=== PATIENT | female | born 1940 | race Two or more races ===

== ENCOUNTER 2024-07-24 14:21 | Inpatient (IN) | payer MEDICARE, MEDICAID, SELFPAY ==
[2024-07-24 14:22] VITALS: BMI 25.7
[2024-07-24 14:40] VITALS: BP 139/70; PULSE 68; RESP 18; TEMP 36.6; O2SAT 99
--- NOTE | 2024-07-24 14:55 | XR_ITS ---
Examination: Upright PA chest single view Technique: Upright PA chest single view Exam date and time: July 24, 2024 1506 hrs. Indications: Shortness of breath today. Findings: Mild to moderate CHF Moderate enlargement cardiac contour Prominent vascular congestion with perihilar edema Cardiac leads satisfactory position Impression: Mild/moderate CHF
--- NOTE | 2024-07-24 14:55 | XR_ITS ---
Examination: Venous duplex lower extremity sonogram, bilateral. Date and time of exam: July 24, 2024 1551 hrs. Comparison May 05, 2022 Indications: Bilateral leg swelling and pain beginning 3 weeks ago Technique: Multiple sonographic images of the deep venous system have been obtained. B-mode/2-D grayscale imaging of vascular structures and Doppler spectral analysis (waveforms) and color performed Both legs are examined. Findings: Deep venous systems do not demonstrate abnormal echogenicity. Very limited study with no diagnostic visualization right superficial femoral right popliteal veins and distal left superficial femoral left popliteal veins Impression: Limited study with no acute DVT demonstrated
--- NOTE | 2024-07-24 14:57 | PD.EDRME ---
Rapid Medical Screening Exam RME Arrival date/time: 07/24/24 14:21 84-year-old female presents to the emergency department today with complaints of bilateral lower extremity swelling Chief Complaint: Extremity Problem,Nontraumatic Vital signs: Vital Signs Temperature 97.8 F 07/24/24 14:40 Pulse Rate 68 07/24/24 14:40 Respiratory Rate 18 07/24/24 14:40 Blood Pressure 139/70 H 07/24/24 14:40 Pulse Oximetry (%) 99 07/24/24 14:40 Oxygen Delivery Method Room Air 07/24/24 14:40
[2024-07-24 15:22] LABS: Basophils % (Auto) 1 % (0-2.5); Eosinophils # (Auto) 0.1 Thou/mm3 (0.0-0.5); Eosinophils % (Auto) 3 % (0-10); Hematocrit 31.6 % (36.0-46.0); Hemoglobin 10.9 g/dL (12.0-16.0); Immature Granulocytes % (Auto) 1 % (0-0); Immature Granulocytes Auto 0.02 Thou/mm3 (0.00-0.00); Lymphocytes # (Auto) 0.6 Thou/mm3 (1.0-4.8); Lymphocytes % (Auto) 15 % (10-50); Mean Corpuscular HGB Conc 34.5 g/dl (31.0-37.0); Mean Corpuscular Hemoglobin 33.5 pg (25.0-35.0); Mean Corpuscular Volume 97 fL (80-100); Monocytes # (Auto) 0.5 Thou/mm3 (0.0-0.8); Monocytes % (Auto) 14 % (0-12); Neutrophils # (Auto) 2.6 Thou/mm3 (1.8-7.7); Neutrophils % (Auto) 67 % (37-80); Nucleated Red Blood Cell % 0 /100 WBC (0); Platelet Count 103 Thou/mm3 (140-440); RDW Standard Deviation 52.5 fL (36.4-46.3); Red Blood Count 3.25 Miln/mm3 (4.00-5.20); White Blood Count 3.9 Thou/mm3 (3.6-11.0)
[2024-07-24 15:36] LABS: INR 1.2 (0.9-1.3); Partial Thromboplastin Time 27.6 Seconds (22.0-36.0); Prothrombin Time 12.7 Seconds (9.0-12.2)
[2024-07-24 15:38] LABS: B-Type Natriuretic Peptide 270 pg/mL (0-100)
[2024-07-24 15:40] LABS: Alanine Aminotransferase 11 U/L (10-49); Albumin, Serum 4.2 gm/dL (3.4-4.8); Albumin/Globulin Ratio 1.1 (1.2-2.2); Alkaline Phosphatase 253 U/L (46-116); Anion Gap 10 (7-16); Aspartate Amino Transferase 19 U/L (0-34); BUN/Creatinine Ratio 38 Ratio (12-20); Bilirubin,Total 2.8 mg/dL (0.3-1.2); Blood Urea Nitrogen 79 mg/dL (9-23); Calcium 9.3 mg/dL (8.3-10.6); Calcium (Corrected) 9.3 mg/dL (8.5-10.1); Carbon Dioxide 25.1 mMol/L (20.0-31.0); Chloride 101 mMol/L (98-107); Creatinine (Component) 2.1 mg/dL (0.6-1.3); Estimated Creatinine Clearance 18.5 mL/min (>60); Globulin 3.7 gm/dL (2.3-3.5); Glucose 129 mg/dL (74-106); Lipase 63 U/L (12-53); Magnesium 2.1 mg/dL (1.6-2.6); Osmolality,Calculated 297 (275-295); Potassium 3.9 mMol/L (3.4-5.1); Sodium 136 mMol/L (136-145); Total Protein 7.9 gm/dL (5.7-8.2); Troponin I 0.022 ng/mL (0.0-0.045); eGFR 23 See Note
[2024-07-24 17:13] VITALS: BP 137/80; PULSE 76; RESP 18; TEMP 36.4; O2SAT 96
[2024-07-24 17:19] LABS: Collection Type, Urine Clean Catch
[2024-07-24 17:24] LABS: Bilirubin,Urine Negative (Negative); Blood,Urine Negative (Negative); Clarity,Urine Clear (Clear/Hazy); Color,Urine Lt-Yellow (Lt Yel-Yel); Glucose, Urine Negative (Negative); Hyaline Casts,Urine < 1 /hpf (0-1); Ketones,Urine Negative (Negative); Leukocyte Esterase,Urine Negative (Negative); Nitrite,Urine Negative (Negative); Protein,Urine Trace (Neg - Trace); RBC,Urine 1 /hpf (0-3); Specific Gravity,Urine 1.011 (1.001-1.035); Squamous Epithelial Cell,Urine < 1 /hpf (0-5); Urobilinogen,Urine Negative mg/dL (0.0-1.0); WBC,Urine 1 /hpf (0-5)
--- NOTE | 2024-07-24 18:25 | PD.EDEXREM ---
ED Extremity Problem RME/HPI General Chief complaint: Extremity Problem,Nontraumatic Stated complaint: BLE EDEMA X3 WEEKS Time Seen by Provider: 07/24/24 18:24 Arrival date/time: 07/24/24 14:21 RME / HPI RME / HPI Narrative: 07/24/24 14:21 84-year-old female presents to the emergency department today with complaints of bilateral lower extremity swelling This section includes all my notes and documentations, including HPI, PE, and ED course. Denton Lewis MD HPI: 84-year-old female here to be evaluated with several weeks of severe edema in the legs. Can't stand or walk due to the swelling. She and daughter also think there is fluid in the belly. Increasing dyspnea and orthopnea. No chest pain. No fever or chills. No nausea or vomiting. No history of alcohol use. No known liver disease. No other complaints. ROS: All negative except as documented in HPI. Physical Exam: General: Alert and oriented. Appears uncomfortable. Eyes: Conjunctivae and lids clear. ENT: No nasal congestion. Neck: Supple. Heart: RRR. Lungs: No respiratory distress. Good air movement with rales. Abdomen: Soft. Normal bowel sounds. Significant distension. No rebound or guarding. Back: No CVA tenderness. Skin: Warm and dry. Neuro: Alert and oriented X 3. I reviewed all diagnostic test results. Diagnoses include: Decompensated cirrhosis Ascites Anasarca bilateral leg edema CHF I discussed the case with our signal tester and our hospitalist. About the presentation and exam and diagnostics and treatments here. And need of further care in the hospital. Will accept the patient. Denton Lewis MD Related Data Home Medications ?Medication ?Instructions ?Recorded ?Confirmed lovastatin 20 mg tablet 20 mg PO HS 06/21/17 04/30/22 pantoprazole 40 mg tablet,delayed 40 mg PO QDAY 06/21/17 04/30/22 release fluticasone propionate 50 1 spray intranasal QDAY 04/30/22 04/30/22 mcg/actuation nasal spray,suspension sitagliptin phosphate 50 mg tablet 50 mg PO QDAY 04/30/22 04/30/22 (Januvia) Previous Rx's ?Medication ?Instructions ?Recorded metformin 500 mg tablet 500 mg PO BID #60 tabs 12/18/18 azithromycin 250 mg tablet See Rx Instructions PO .COMPLEX #6 08/07/22 (Zithromax Z-Vamshi) tabs Allergies Allergy/AdvReac Type Severity Reaction Status Date / Time aspirin Allergy Severe SWELLING Verified 07/24/24 14:26 TO LIPS chlorpheniramine Allergy Severe UNKNOWN Verified 07/24/24 14:26 PER PT diphenhydramine Allergy Severe SWELLING Verified 07/24/24 14:26 TO LIPS guaifenesin Allergy Severe UNKNOWN Verified 07/24/24 14:26 phenylpropanolamine Allergy Severe SWELLING Verified 07/24/24 14:26 TO LIPS Salicylates Allergy Severe SWELLING Verified 07/24/24 14:26 TO LIPS Course Quality Measures none Orders Category Date Time Status COVID-19 Screening Questionnaire NOW Care 07/24/24 20:36 Active Decision to Admit X1 Care 07/24/24 20:36 Completed EKG (ED ONLY) *Do not use* NOW Care 07/24/24 20:51 Completed IV [Insert IV] NOW Care 07/24/24 21:07 Active Consult to Gastroenterology Stat Cons 07/24/24 20:35 Ordered Diet Low Sodium (2gm) Diet 07/25/[address] chest abdomen pelvis wo Stat Exams 07/24/24 18:44 Completed EKG (ED Only) Stat Exams 07/24/24 20:51 Draft US venous doppler LE BI Stat Exams 07/24/24 14:55 Completed XR chest 1V portable Stat Exams 07/24/24 14:55 Completed B-Type Natriuretic Peptide Stat Lab 07/24/24 15:13 Completed CBC Stat Lab 07/24/24 15:13 Completed Comprehensive Metabolic Panel Stat Lab 07/24/24 15:13 Completed Lipase Stat Lab 07/24/24 15:13 Completed Magnesium Stat Lab 07/24/24 15:13 Completed Partial Thromboplastin Time Stat Lab 07/24/24 15:13 Completed Prothrombin Time with INR Stat Lab 07/24/24 15:13 Completed Troponin I Stat Lab 07/24/24 15:13 Completed Urinalysis Stat Lab 07/24/24 17:08 Completed Bumetanide Inj [Bumex Inj] Med 07/24/24 20:38 Discontinued 1 mg IVP X1 ONE Container,Empty 50 ml [Empty Container Bag 50 ml] 1 bag Med 07/24/24 20:38 Active Bumetanide Inj [Bumex Inj] 10 mg IV 0.5 mg/hr Vital Signs Vital signs: Vital Signs Temperature 97.8 F 07/24/24 14:40 Pulse Rate 68 07/24/24 14:40 Respiratory Rate 18 07/24/24 14:40 Blood Pressure 139/70 H 07/24/24 14:40 Pulse Oximetry (%) 99 07/24/24 14:40 Oxygen Delivery Method Room Air 07/24/24 14:40 Extremity Problem Patient data External records reviewed:: [facility] previous records Clinical information provided by:: patient and family Social determinants that could affect healthcare access:: other (specify) (Advanced age) Patient has the following chronic illnesses:: DM How is presenting disease/condition affected by chronic disease/condition?: uneffected by Evaluation data The following diagnostics were reviewed and interpreted by me:: lab results, radiology exam(s) and EKG tracing(s) Lab and/or radiology exams considered but not ordered:: None Interpretation Summary: Diagnoses include: Decompensated cirrhosis Ascites Anasarca bilateral leg edema CHF Medications / Prescriptions Medications or Prescriptions considered but not ordered:: None Medication administrations:: Medication Administration History Acetaminophen (Acetaminophen 325 Mg Tablet) 650 mg PO Q6H PRN PRN Reason: Fever >101.5 Stop: 08/23/24 21:42 Acetaminophen (Acetaminophen 325 Mg Tablet) 650 mg PO Q6H PRN PRN Reason: PAIN SCALE 1-3 (mild Stop: 08/23/24 21:42 Atorvastatin Calcium (Atorvastatin Calcium 20 Mg Tablet) 40 mg PO HS SANJEEV Stop: 08/24/24 20:59 Carvedilol (Carvedilol 3.125 Mg Tablet) 6.25 mg PO BID SANJEEV Stop: 08/24/24 08:59 Dextrose (Dextrose 50%-Water Inj 50 Ml Syringe) 25 ml IV Q15MIN PRN PRN Reason: BG 50-70 responsive npo pt Stop: 08/23/24 21:52 Dextrose (Dextrose 50%-Water Inj 50 Ml Syringe) 50 ml IV Q15MIN PRN PRN Reason: BG <50 OR BG <70 & pt unresponsive Stop: 08/23/24 21:52 Glucagon (Glucagon Inj 1 Mg Vial) 1 mg IM Q15MIN PRN PRN Reason: BG <70, and no IV access Heparin Sodium (Porcine) (Heparin Sod Inj 5000 Unit/Ml Vial) 5,000 unit SC Q8HR SANJEEV Stop: 08/07/24 21:59 Last Admin: 07/24/24 23:18 Dose: 5,000 unit Documented By: CB Co-signed By: CVL Admin: 07/24/24 23:18 Dose: 5,000 unit Documented By: TAMMY Co-signed By: CVL Bumetanide 10 mg/ IV (Miscellaneous Supplies) 40 mls @ 2 mls/hr IV .Q20H SANJEEV Stop: 07/25/24 16:37 Last Admin: 07/24/24 21:04 Dose: 0.5 mg/hr, 2 mls/hr Documented By: JOSE Insulin Human Lispro (Insulin Lispro (Admelog) 1 Unit/0.01 Ml Unit) 0 unit SC AC SANJEEV; Protocol Stop: 08/24/24 07:29 Ondansetron HCl (Ondansetron Inj 2 Mg/Ml Inj 2 Ml) 4 mg IV Q6H PRN; Protocol PRN Reason: NAUSEA OR VOMITING Stop: 08/23/24 21:42 Spironolactone (Spironolactone 25 Mg Tablet) 25 mg PO HS SANJEEV Stop: 08/23/24 21:49 Discontinued Medications Bumetanide (Bumetanide Inj 0.25 Mg/Ml Vial 4 Ml) 1 mg IVP X1 ONE Stop: 07/24/24 20:39 Last Admin: 07/24/24 21:05 Dose: 1 mg Documented By: JOSE From nd, patient received Bumex bolus and drip. Consultations Consultation(s) initiated? (list below): Yes Consultation #1 (Physician, Specialty, Details): I discussed the case with our signal tester and our hospitalist. About the presentation and exam and diagnostics and treatments here. And need of further care in the hospital. Will accept the patient. Diagnosis Extremity Problem Differential Diagnosis: lower extremity edema, deep vein thrombosis of lower extremity and other (CHF, cirrhosis, ascites, hepatorenal syndrome) Most likely diagnosis given after review of the tests above:: Diagnoses include: Decompensated cirrhosis Ascites Anasarca bilateral leg edema CHF Admission Indicated Admission indicated?: indicated Explain why admission is indicated or not indicated:: Diagnoses include: Decompensated cirrhosis Ascites Anasarca bilateral leg edema CHF I discussed the case with our signal tester and our hospitalist. About the presentation and exam and diagnostics and treatments here. And need of further care in the hospital. Will accept the patient. Admission Request Was there a request for admission?: Yes Admission Attestation Admission request attestation: Discussed case with Hospitalist service regarding admission. Discussed patients ED course, exam findings, labs, and radiology results. The Hospitalist [agrees] to accept the patient for admission. Disposition Plan Disposition Plan: Admit Discharge Plan Plan Patient Disposition: Admit Acute Care w/in Hospital Problem List Clinical Impression: Decompensated cirrhosis, Ascites, Anasarca, Bilateral leg edema, CHF (congestive heart failure)
--- NOTE | 2024-07-24 18:44 | XR_ITS ---
Examination: CT chest, without intravenous contrast. CT abdomen, without intravenous contrast. CT pelvis, without intravenous contrast. 2-D sagittal and coronal reconstructions. 3-D reconstructions. Date and time of exam:July 24, 2024 at 1906 hrs. Indications: Chest pain shortness of breath today, clinical diagnosis CHF abdominal distention CTDI vol (mgy) 9.74 DLP (MGycm)673 Technique: Multiple CT images, 3.0 mm slice thickness, obtained chest, abdomen, pelvis, with the high-resolution 64 slice scanner.. Sagittal and coronal 2-D reconstructions are obtained. 3-D reconstructions Low dose protocols were performed. One or more of the following dose reduction techniques were used; automated exposure control, adjustment of the mA and/or KV according to patient size, use of iterative reconstruction technique. Findings: No thoracic aortic aneurysm dilatation Pulmonary artery segments are not enlarged Moderate cardiomegaly Significant vascular congestion with mild septal edema in the lung franklin and minimal pleural fluid 6 mm calcified nodule right lower lobe Cirrhosis, liver nodular in contour with fatty infiltration Cholelithiasis Gallbladder wall is thickened which may relate to the patient's ascites Spleen is not enlarged No pancreatic mass No renal or ureteral calculi Anasarca Aorta normal size IVC dilated consistent with heart failure No bowel obstruction Anteverted uterus Endometrial stripe is thickened 15 mm Prominent osteopenia Impression: Mild CHF Cirrhosis Cholelithiasis Mild to moderate ascites Anasarca No bowel obstruction
[2024-07-24 20:24] VITALS: BP 125/78; PULSE 71; RESP 19; TEMP 36.4; O2SAT 92
--- NOTE | 2024-07-24 20:51 | EKG_ITS ---
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
--- NOTE | 2024-07-24 20:52 | PD.EVENT ---
Documentation for date of: 07/24/24 Event Note Event Note: An 84-year-old female presented to the ER with the chief complaint of bilateral leg swelling. The patient reports that the swelling began approximately three weeks ago and has worsened significantly over the past week, with marked progression since Tuesday. She is now barely able to ambulate. She denies shortness of breath, fever, cough, or chest pain. No other acute complaints were reported. The patient has a history of HTN, DM, HLD, anemia, and has undergone pacemaker placement twice. Current medications include LovaStatin, Potassium Chloride, Carvedilol, Ferrous Sulfate, Metformin, Metolazone, Digoxin, Pantoprazole, Vitamin B12, and Furosemide. Social history is negative for smoking, alcohol, or drug use. She is functionally limited and requires assistance to ambulate with a walker. She was hospitalized about a year ago for biliary stones and was managed non-surgically with medications during admission. Last cardiac echo in 2022 showed an estimated EF of 50?55%. In the ER, vital signs recorded as temp 97.8?F, HR 68 bpm, RR 18, BP 139/70 mmHg, oxygen saturation 99% on room air. Lab revealed: sodium 136, potassium 3.9, BUN 79, creatinine 2.1, glucose 129, total bilirubin 2.8, BNP 270, AST 19, ALT 11, WBC 3.9, hemoglobin 10.9, platelet 103, INR 1.2. CT showed mild CHF, cirrhosis, cholelithiasis, mild to moderate ascites, anasarca, and a dilated IVC consistent with heart failure; no bowel obstruction. Lower extremity US showed no acute DVT. CXR demonstrated mild to moderate CHF. EKG showed pacemaker rhythm. GI was consulted for cirrhosis. Patient was admitted for further management. #Anasarca, from CHF or cirrhosis Assessment: Progressive bilateral leg swelling with anasarca; evidence of mild to moderate CHF (BNP 270, CXR/CT findings, dilated IVC), cirrhosis with ascites (CT), normal albumin (4.2) excludes hypoalbuminemia; renal dysfunction (Cr 2.1, BUN 79); FIB-4 score 4.62 suggests advanced fibrosis; coagulopathy and cytopenias (PLT 103, INR 1.2, WBC 3.9) likely liver-related; no DVT Plan: - Continue IV loop diuretics (optimize dosing) - Daily weights, strict I/O, monitor renal function and electrolytes - Sodium restriction, fluid restriction as tolerated - Leg elevation, compression if tolerated - GI consulted for cirrhosis evaluation - Order hepatitis panel and additional liver workup - Repeat echocardiogram to reassess EF - Avoid nephrotoxic medications - Further management contingent on updated EF and hepatology input #CKD Assessment: Chronic kidney disease, Cr 2.1 (baseline 1.5 two years ago), likely worsened with volume overload and diuretic use Plan: - Monitor renal function and electrolytes daily - Adjust diuretics based on response and renal status - Avoid nephrotoxins - Consider nephrology consult if worsening #DM Assessment: Type 2 diabetes mellitus, glucose 129 on admission, eGFR likely <30 Plan: - Hold metformin due to renal impairment - Initiate sliding scale insulin for inpatient glucose control - Monitor glucose trends and renal function closely #HTN Assessment: Hypertension, BP 139/70, on carvedilol and metolazone Plan: - Continue carvedilol; hold metolazone with ongoing diuresis and renal monitoring - Monitor BP closely, adjust as needed during diuresis - Avoid overdiuresis/hypotension #HLD Assessment: Hyperlipidemia, on lovastatin Plan: - Continue statin therapy - No acute issues; routine outpatient lipid panel follow-up
[2024-07-24] MEDS: BUMETANIDE INJ 10 MG in CONTAINER,EMPTY 50 ML 1 BAG 2 MG IV (21:04)
[2024-07-24] MEDS: BUMETANIDE INJ 0.25 MG/ML VIAL 4 ML 1 MG IVP (21:05)
--- NOTE | 2024-07-24 21:22 | PD.RESHP ---
Documentation for date of: 07/24/24 [facility] History of Present Illness History of present illness: The patient is an 84-year-old female with significant past medical history of hypertension, diabetes mellitus type 2, hyperlipidemia, anemia, hepatocellular disease, s/p pacemaker placement x 2 presented to ED on 07/24/2024 with chief complaint of bilateral lower limb edema that has been worsening for past 3 weeks. She was accompanied by her daughter, Sarahi. For past 2 days, she has not been able to ambulate, and her swelling gradually increased up to her buttock. She denied any headache, nausea or vomiting, chest pain, SOB, abdominal pain, any changes in bowel or bladder habit, fever or chills. In the ED her vitals were significant for blood pressure of 139/70 with other vitals WNL. Labs are significant for CBC revealing hemoglobin 10.9, platelet 103, and INR 1.2, sodium 136, potassium 3.9, BUN 79, creatinine 2.1, blood sugar 129, total bilirubin 2.8, BNP 270, AST/ALT 19/11. CT abdomen revealed mild CHF, cirrhosis, cholelithiasis, mild to moderate ascites, anasarca, and a dilated IVC consistent with heart failure, no bowel obstruction. Lower extremity US Doppler was negative for DVT, CXR revealed mild to moderate CHF, EKG revealed paced rhythm. PMH: As mentioned above SHX: 1 section, s/p pacemaker x 2 Social history: Never smoker, alcohol or any illicit drug use Medications: To be reconciled Allergies: Aspirin-swelling to lips, chlorpheniramine-unknown, diphenhydramine-swelling to lips, guaifenesin-unknown, phenylpropanolamine-swelling to lips, salicylates-swelling to lips The patient was started on Bumex drip in the ED, GI Dr. Le was consulted, and admitted to med telemetry unit for further management of anasarca secondary to liver cirrhosis. Review of Systems Review of Systems Systems Reviewed: All systems reviewed, normal except as documented Exam Vital Signs Temp Pulse Resp BP Pulse Ox O2 Del Method 97.5 F 71 19 125/78 92 L Room Air 07/24/24 20:24 07/24/24 20:24 07/24/24 20:24 07/24/24 20:24 07/24/24 20:24 07/24/24 20:24 Narrative Exam General: Elderly cooperative female, no acute distress, Alert and Oriented x 3 HEENT: Moist mucous membranes, oropharynx clear Neck: Supple, No masses, No JVD CVS: S1S2 Regular rate and rhythm, No murmurs, rubs or gallops Lungs: Clear to auscultation with no accessory use, no wheeze no rhonchi Abd: Soft, NT/mildly distended in all quadrants, +BS, no organomegaly Ext: 3-4+ bilateral lower limb edema extended up to abdomen, peripheral pulses: Feeble Skin: No rash Psych: Appropriate mood and affect Results: Labs 07/24/24 15:13 07/24/24 15:13 Labs: Short CBC 07/24/24 Range/Units 15:13 WBC 3.9 (3.6-11.0) Thou/mm3 Hgb 10.9 L (12.0-16.0) g/dL Hct 31.6 L (36.0-46.0) % Plt Count 103 L (140-440) Thou/mm3 BMP 07/24/24 15:13 Sodium 136 Potassium 3.9 Chloride 101 Carbon Dioxide 25.1 BUN 79 H Creatinine 2.1 H Glucose 129 H Calcium 9.3 Cardiac Enzymes 07/24/24 Range/Units 15:13 Troponin I 0.022 (0.0-0.045) ng/mL Liver Function 07/24/24 Range/Units 15:13 Total Bilirubin 2.8 H (0.3-1.2) mg/dL AST 19 (0-34) U/L ALT 11 (10-49) U/L Alkaline Phosphatase 253 H (46-116) U/L Albumin 4.2 (3.4-4.8) gm/dL Urine 07/24/24 Range/Units 17:08 Urine Color Lt-Yellow (Lt Yel-Yel) Urine Clarity Clear (Clear/Hazy) Urine pH 6.0 (5.0-7.0) Ur Specific [place] 1.011 (1.001-1.035) Urine Protein Trace (Neg - Trace) Urine Glucose (UA) Negative (Negative) Quality Measures Quality Measures VTE prophylaxis Advance care planning discussed with:: patient and child Medications Home Medications and Allergies Home Medications ?Medication ?Instructions ?Recorded ?Confirmed ?Type lovastatin 20 mg tablet 20 mg PO HS 06/21/17 04/30/22 History pantoprazole 40 mg tablet,delayed 40 mg PO QDAY 06/21/17 04/30/22 History release fluticasone propionate 50 1 spray intranasal QDAY 04/30/22 04/30/22 History mcg/actuation nasal spray,suspension sitagliptin phosphate 50 mg tablet 50 mg PO QDAY 04/30/22 04/30/22 History (Nilo) Allergies Allergy/AdvReac Type Severity Reaction Status Date / Time aspirin Allergy Severe SWELLING Verified 07/24/24 14:26 TO LIPS chlorpheniramine Allergy Severe UNKNOWN Verified 07/24/24 14:26 PER PT diphenhydramine Allergy Severe SWELLING Verified 07/24/24 14:26 TO LIPS guaifenesin Allergy Severe UNKNOWN Verified 07/24/24 14:26 phenylpropanolamine Allergy Severe SWELLING Verified 07/24/24 14:26 TO LIPS Salicylates Allergy Severe SWELLING Verified 07/24/24 14:26 TO LIPS Visit Medications Bumetanide 10 mg/ IV (Miscellaneous Supplies) 40 mls @ 2 mls/hr IV .Q20H SANJEEV Stop: 07/25/24 16:37 Last Admin: 07/24/24 21:04 Dose: 0.5 mg/hr, 2 mls/hr Discontinued Medications Bumetanide (Bumetanide Inj 0.25 Mg/Ml Vial 4 Ml) 1 mg IVP X1 ONE Stop: 07/24/24 20:39 Last Admin: 07/24/24 21:05 Dose: 1 mg Assessment & Plan Plan The patient is an 84-year-old female with significant past medical history of hypertension, diabetes mellitus type 2, hyperlipidemia, anemia, hepatocellular disease, s/p pacemaker placement x 2 presented to ED on 07/24/2024 with chief complaint of bilateral lower limb edema that has been worsening for past 3 weeks admitted to med telemetry unit for further management of anasarca secondary to liver cirrhosis. #Anasarca 2/2 #Liver cirrhosis Likely etiology is mass, as patient denied ever taking any alcoholic drink and previously on April 2022, CT abdomen/pelvis was significant for hepatocellular disease, and her hepatic panel was negative Platelet 103, INR 1.2, total bilirubin 2.8, BNP 270, AST/ALT 19/11. CT abdomen revealed mild CHF, cirrhosis, cholelithiasis, mild to moderate ascites, anasarca, and a dilated IVC consistent with heart failure, no bowel obstruction - Started on Bumex drip - Started on Aldactone 25 Mg daily at night - Ordered acute hepatitis panel - Strict ins and out with fluid restriction of 1200 cc/day - On 2 g sodium diet - Monitor CBC, CMP and electrolytes daily in the a.m. #BLAKE on CKD stage IIIb Prerenal secondary to volume overload secondary to liver cirrhosis Presented with creatinine of 2.1, previous creatinine was 1.5, BUN/creatinine ratio 38. GFR is stable around 35, presented with 23. - Treat the underlying anasarca - Renally dose medications - Discontinue the home medication metformin, and switch it to GLP-1 - Avoid nephrotoxic drugs - Daily a.m. labs for CMP and electrolytes #Diabetes mellitus type 2 Presented with blood sugar of 129, has been taking metformin at home - A1c ordered - Started on sliding scale insulin AC - Discontinue home metformin, and switch to GLP-1 antagonist during discharge - Daily a.m. labs for blood sugar #Essential hypertension Presented with blood pressure 139/70 - Started on home carvedilol 6.25 Mg twice daily #Hyperlipidemia - Patient is taking lovastatin 20 Mg daily - We will start the patient on atorvastatin 40 Mg daily Health maintenance: Dispo: Patient admitted to med telemetry unit for further management of generalized anasarca secondary to liver cirrhosis Diet: 2 g sodium diet, fluid restriction to 100 cc/day DVT prophylaxis: Subcu heparin every 8 hours CODE STATUS: Full code The patient's management plan was discussed with my attending physician MD Felix Castro MD, PGY2 Attending Provider Attestation/Addendum Pt was evaluated and plan formulated together with the housestaff team. I have reviewed the residents note above and agree with most of its content. Please refer to the residents note for additional details.
--- NOTE | 2024-07-24 21:23 | PD.IMCONS ---
HPI Data of Consult Primary Care Provider: Mauro Castillo MD Consult Narrative Reason for consult: Pedal edema, anasarca History of present illness: 84 years of female evaluated in the ER bed 9 at the request of the ER physician for swelling and picture of anasarca CT scan of the chest abdomen pelvis showed mild CHF cirrhosis liver cholelithiasis and anasarca Patient does not drink any alcohol She does have a history of hypertension diabetes mellitus type 2 hyperlipidemia pacemaker placement cc:: cc: Review of Systems Review of Systems Systems Reviewed: All systems reviewed, normal except as documented Past Medical History Surgical History OTHER SURGICAL HX: As in the history of present illness Meds Home Medications and Allergies Home Medications ?Medication ?Instructions ?Recorded ?Confirmed ?Type lovastatin 20 mg tablet 20 mg PO HS 06/21/17 07/25/24 History pantoprazole 40 mg tablet,delayed 40 mg PO QDAY 06/21/17 07/25/24 History release fluticasone propionate 50 1 spray intranasal QDAY 04/30/22 04/30/22 History mcg/actuation nasal spray,suspension carvedilol 6.25 mg tablet 6.25 mg PO BID 07/25/24 07/25/24 History cyanocobalamin (vitamin B-12) 500 500 mcg PO QDAY 07/25/24 07/25/24 History mcg tablet (Vitamin B-12) digoxin 125 mcg (0.125 mg) tablet 0.125 mg PO DAILY 07/25/24 07/25/24 History ferrous sulfate 325 mg (65 mg 325 mg PO BID 07/25/24 07/25/24 History iron) tablet furosemide 20 mg tablet 20 mg PO BID 07/25/24 07/25/24 History metolazone 5 mg tablet 5 mg PO DAILY 07/25/24 07/25/24 History potassium chloride 10 mEq 10 meq PO DAILY 07/25/24 07/25/24 History tablet,extended release Allergies Allergy/AdvReac Type Severity Reaction Status Date / Time aspirin Allergy Severe SWELLING Verified 07/24/24 14:26 TO LIPS chlorpheniramine Allergy Severe UNKNOWN Verified 07/24/24 14:26 PER PT diphenhydramine Allergy Severe SWELLING Verified 07/24/24 14:26 TO LIPS guaifenesin Allergy Severe UNKNOWN Verified 07/24/24 14:26 phenylpropanolamine Allergy Severe SWELLING Verified 07/24/24 14:26 TO LIPS Salicylates Allergy Severe SWELLING Verified 07/24/24 14:26 TO LIPS Exam Vital Signs Temp Pulse Resp BP Pulse Ox O2 Del Method 97.5 F 71 19 125/78 92 L Room Air 07/24/24 20:24 07/24/24 20:24 07/24/24 20:24 07/24/24 20:24 07/24/24 20:24 07/24/24 20:24 Constitutional Comments: Chronically ill-appearing Routine Respiratory Exam Comments: Normal to auscultation Routine Abdominal Exam Comments: Positive for ascites Results Labs 07/25/24 04:44 07/25/24 04:44 Labs: Short CBC 07/24/24 Range/Units 15:13 WBC 3.9 (3.6-11.0) Thou/mm3 Hgb 10.9 L (12.0-16.0) g/dL Hct 31.6 L (36.0-46.0) % Plt Count 103 L (140-440) Thou/mm3 BMP 07/24/24 15:13 Sodium 136 Potassium 3.9 Chloride 101 Carbon Dioxide 25.1 BUN 79 H Creatinine 2.1 H Glucose 129 H Calcium 9.3 Cardiac Enzymes 07/24/24 Range/Units 15:13 Troponin I 0.022 (0.0-0.045) ng/mL Liver Function 07/24/24 Range/Units 15:13 Total Bilirubin 2.8 H (0.3-1.2) mg/dL AST 19 (0-34) U/L ALT 11 (10-49) U/L Alkaline Phosphatase 253 H (46-116) U/L Albumin 4.2 (3.4-4.8) gm/dL Urine 07/24/24 Range/Units 17:08 Urine Color Lt-Yellow (Lt Yel-Yel) Urine Clarity Clear (Clear/Hazy) Urine pH 6.0 (5.0-7.0) Ur Specific [place] 1.011 (1.001-1.035) Urine Protein Trace (Neg - Trace) Urine Glucose (UA) Negative (Negative) Assessment and Plan Additional Assessment & Plan Additional Plan: # Anasarca most likely due to underlying cirrhotic liver disease of uncertain etiology 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 fluid restriction in 24 hours Spironolactone 25 mg p.o. twice daily Complete workup ordered for the chronic active hepatitis Will follow the patient # Cholelithiasis asymptomatic Other medical problems include # CHF # Essential hypertension # Diabetes mellitus type 2 # Cardiac arrhythmias requiring pacemaker placement Thank you very much for the opportunity to participate in the care of this patient
[2024-07-24 21:42] VITALS: BP 138/68; PULSE 70; RESP 20; O2SAT 92
[2024-07-24 22:25] VITALS: BP 127/69; PULSE 76; RESP 18; TEMP 36.3; O2SAT 92
[2024-07-24 23:10] VITALS: BP 120/66; PULSE 75; RESP 20; O2SAT 95
[2024-07-24] MEDS: HEPARIN SOD INJ 5000 UNIT/ML VIAL SC (23:18)
--- NOTE | 2024-07-24 23:20 | PC.NURSE ---
REPORT GIVEN TO LUIS M MAYERS AT [facility].
[2024-07-24 23:24] VITALS: BMI 31.2
[2024-07-25] VITALS (13 sets, daily range): BP systolic 112–146; BP diastolic 61–85; PULSE 64–93; RESP 17–95; TEMP 36.2–36.9; O2SAT 92–94; BMI 11.0
--- NOTE | 2024-07-25 00:42 | PC.NURSE ---
educated patient on bringing her home medication for med rec, per patient they brought it but family brought her belongings home.
[2024-07-25] MEDS: SPIRONOLACTONE 25 MG TABLET PO ×2 (01:10→21:25)
[2024-07-25] MEDS: HEPARIN SOD INJ 5000 UNIT/ML VIAL SC ×3 (05:41→21:24)
[2024-07-25 05:53] LABS: Basophils % (Auto) 1 % (0-2.5); Eosinophils # (Auto) 0.1 Thou/mm3 (0.0-0.5); Eosinophils % (Auto) 3 % (0-10); Hematocrit 30.7 % (36.0-46.0); Hemoglobin 10.6 g/dL (12.0-16.0); Immature Granulocytes % (Auto) 0 % (0-0); Immature Granulocytes Auto 0.01 Thou/mm3 (0.00-0.00); Lymphocytes # (Auto) 0.6 Thou/mm3 (1.0-4.8); Lymphocytes % (Auto) 15 % (10-50); Mean Corpuscular HGB Conc 34.5 g/dl (31.0-37.0); Mean Corpuscular Hemoglobin 33.5 pg (25.0-35.0); Mean Corpuscular Volume 97 fL (80-100); Monocytes # (Auto) 0.5 Thou/mm3 (0.0-0.8); Monocytes % (Auto) 12 % (0-12); Neutrophils # (Auto) 2.8 Thou/mm3 (1.8-7.7); Neutrophils % (Auto) 69 % (37-80); Nucleated Red Blood Cell % 0 /100 WBC (0); Platelet Count 104 Thou/mm3 (140-440); RDW Standard Deviation 51.9 fL (36.4-46.3); Red Blood Count 3.16 Miln/mm3 (4.00-5.20)
[2024-07-25 06:23] LABS: Iron 69 mcg/dL (50-170); Percent Iron Saturation 17 % (20-55); Total Iron Binding Capacity 394 mcg/dL (250-425); Unsaturated Iron Binding 325 (225-295)
[2024-07-25 06:27] LABS: Alanine Aminotransferase 10 U/L (10-49); Albumin/Globulin Ratio 1.3 (1.2-2.2); Alkaline Phosphatase 231 U/L (46-116); Anion Gap 12 (7-16); Aspartate Amino Transferase 18 U/L (0-34); BUN/Creatinine Ratio 39 Ratio (12-20); Bilirubin,Total 3.1 mg/dL (0.3-1.2); Blood Urea Nitrogen 81 mg/dL (9-23); Calcium 9.4 mg/dL (8.3-10.6); Calcium (Corrected) 9.4 mg/dL (8.5-10.1); Carbon Dioxide 25.9 mMol/L (20.0-31.0); Cardiac Risk Estimate 2.7 RATIO (3.7-5.6); Chloride 102 mMol/L (98-107); Cholesterol 139 mg/dL (132-200); Creatinine (Component) 2.1 mg/dL (0.6-1.3); Estimated Creatinine Clearance 20.3 mL/min (>60); Globulin 3.2 gm/dL (2.3-3.5); Glucose 119 mg/dL (74-106); HDL Cholesterol 51 mg/dL (40-60); LDL Cholesterol,Calculated 70 mg/dL (0-130); Magnesium 2.1 mg/dL (1.6-2.6); Osmolality,Calculated 304 (275-295); Phosphorous 3.7 mg/dL (2.4-5.1); Potassium 3.5 mMol/L (3.4-5.1); Sodium 140 mMol/L (136-145); Thyroid Stimulating Hormone 2.19 uIU/mL (0.55-4.78); Total Protein 7.2 gm/dL (5.7-8.2); Triglycerides 88 mg/dL (30-150); eGFR 23 See Note
[2024-07-25 06:51] LABS: Glucose Estimated Average 131 mg/dL (80-131); Hemoglobin A1C 6.2 % Hgb (4.8-6.0)
[2024-07-25 06:55] LABS: Folate 17.06 ng/mL (>5.38); Hepatitis A Antibody IgM Non Reactive (Non React); Hepatitis B Core Antibody IgM Non Reactive (Non React); Hepatitis B Surface Antigen Non Reactive (Non React); Hepatitis C Antibody Non Reactive (Non React)
[2024-07-25] MEDS: carVEDILOL 3.125 MG TABLET 6.25 MG PO ×2 (09:17→21:25)
--- NOTE | 2024-07-25 15:17 | ESPR_ITS ---
<Statement entered by Juan Matias MD - 07/26/24 13:29> Senior Resident Attestation: I supervised/discussed management plan with auditor internal physician Dr. Houser, and was involved in the care of this patient. I personally saw and examined the patient and discussed the assessment and plan with the entire medicine team, including my attending. I agree with the assessment and plan as documented. Patient's care was discussed with attending physician, Dr. Nelson. Juan Matias MD PGY-2. Documentation for date of: 07/25/24 Subjective Subjective Interval history: Patient is seen and examined at bedside No acute overnight events. Patient reported that she is feeling good and denies any other complaints Vitals are stable. On physical examination, severe lower extremity bilateral 4+ pitting pedal edema extending up to the upper abdomen and ascites noted Labs showed hemoglobin 10.6, BUN 81, creatinine 2.1, A1c 6.2 Patient is currently on Bumex drip and will continue it for now Exam Vital Signs Temp Pulse Resp BP Pulse Ox O2 Del Method 97.9 F 70 20 121/66 94 L Room Air 07/25/24 12:00 07/25/24 12:00 07/25/24 12:00 07/25/24 12:00 07/25/24 12:00 07/25/24 08:00 Narrative Exam General: Awake. lying comfortably on the bed HEENT: Normocephalic, atraumatic, mucous membranes moist. Heart: Regular rate and rhythm, pansystolic murmur heard in mitral and tricuspid area. Pacemaker noted Lungs: Clear to auscultation with no wheezing or crackles. Abdomen: Soft, moderately distended, nontender, positive bowel sounds. ?No guarding or rebound tenderness. Neurologic: Alert and oriented x3, no gross neurological deficit, and patient able to move all 4 extremities. Extremities: Bilateral lower extremity edema extending up to the upper abdomen Skin: No rash or ecchymoses. Objective Labs 07/26/24 04:15 07/26/24 04:15 Labs: Laboratory Results - last 24 hr 07/24/24 07/24/24 07/25/24 15:13 17:08 04:44 WBC 3.9 4.0 RBC 3.25 L 3.16 L Hgb 10.9 L 10.6 L Hct 31.6 L 30.7 L MCV 97 97 MCH 33.5 33.5 MCHC 34.5 34.5 RDW Std Deviation 52.5 H 51.9 H Plt Count 103 L 104 L Neut % (Auto) 67 69 Lymph % (Auto) 15 15 [place] % (Auto) 14 H 12 Eos % (Auto) 3 3 Baso % (Auto) 1 1 Neut # (Auto) 2.6 2.8 Lymph # (Auto) 0.6 L 0.6 L [place] # (Auto) 0.5 0.5 Eos # (Auto) 0.1 0.1 Baso # (Auto) 0.0 0.0 Immature Gran # (Auto) 0.02 H 0.01 H Absolute Nucleated RBC 0.00 0.00 Immature Gran % 1 H 0 Nucleated RBC % 0 0 PT 12.7 H INR 1.2 APTT 27.6 Sodium 136 140 Potassium 3.9 3.5 Chloride 101 102 Carbon Dioxide 25.1 25.9 Anion Gap 10 12 BUN 79 H 81 H Creatinine 2.1 H 2.1 H Estim Creat Clear Calc 18.5 L 20.3 L eGFR 23 L 23 L BUN/Creatinine Ratio 38 H 39 H Glucose [address] Glu mg/dL 131 Hemoglobin A1c 6.2 H Calculated Osmolality 297 H 304 H Calcium 9.3 9.4 Corrected Calcium 9.3 9.4 Phosphorus 3.7 Magnesium 2.1 2.1 Iron 69 TIBC 394 Iron Saturation 17 L Unsat Iron Binding 325 H Total Bilirubin 2.8 H 3.1 H AST 19 18 ALT 11 10 Alkaline Phosphatase 253 H 231 H D Troponin I 0.022 B-Natriuretic Peptide 270 H Total Protein 7.9 7.2 Albumin 4.2 4.0 Globulin 3.7 H 3.2 Albumin/Globulin Ratio 1.1 L 1.3 Triglycerides 88 Cholesterol 139 LDL Cholesterol, Calc 70 HDL Cholesterol 51 Cholesterol/HDL Ratio 2.7 L Lipase 63 H Folate 17.06 TSH 2.19 Ur Collection Type Clean Catch Urine Color Lt-Yellow Urine Clarity Clear Urine pH 6.0 Ur Specific [place] 1.011 Urine Protein Trace Urine Glucose (UA) Negative Urine Ketones Negative Urine Blood Negative Urine Nitrite Negative Urine Bilirubin Negative Urine Urobilinogen (Auto) Negative Ur Leukocyte Esterase Negative Urine RBC 1 Urine WBC 1 Ur Squamous Epith Cells < 1 Urine Bacteria None Hyaline Casts < 1 Hepatitis A IgM Ab Non Reactive Hep Bs Antigen Non Reactive Hep B Core IgM Ab Non Reactive Hepatitis C Antibody Non Reactive Quality Measures Quality Measures none Advance care planning discussed with:: patient and child Assessment & Plan Assessment Current Active Medications: Generic Name Dose Route Start Last Admin Trade Name Freq PRN Reason Stop Dose Admin Acetaminophen 650 mg 07/24/24 21:43 Acetaminophen 325 Mg Tablet PO 08/23/24 21:42 Q6H PRN Fever >101.5 Acetaminophen 650 mg 07/24/24 21:43 Acetaminophen 325 Mg Tablet PO 08/23/24 21:42 Q6H PRN PAIN SCALE 1-3 (mild Atorvastatin Calcium 40 mg 07/25/24 21:00 Atorvastatin Calcium 20 Mg Tablet PO 08/24/24 20:59 HS SANJEEV Carvedilol 6.25 mg 07/25/24 09:00 07/25/24 09:17 Carvedilol 3.125 Mg Tablet PO 08/24/24 08:59 6.25 mg BID SANJEEV Administration Dextrose 25 ml 07/24/24 21:53 Dextrose 50%-Water Inj 50 Ml Syringe IV 08/23/24 21:52 Q15MIN PRN BG 50-70 responsive npo pt Dextrose 50 ml 07/24/24 21:53 Dextrose 50%-Water Inj 50 Ml Syringe IV 08/23/24 21:52 Q15MIN PRN BG <50 OR BG <70 & pt unresponsive Glucagon 1 mg 07/24/24 21:53 Glucagon Inj 1 Mg Vial IM Q15MIN PRN BG <70, and no IV access Heparin Sodium (Porcine) 5,000 unit 07/24/24 22:00 07/25/24 13:26 Heparin Sod Inj 5000 Unit/Ml Vial SC 08/07/24 21:59 5,000 unit Q8HR SANJEEV Administration Bumetanide 10 mg/ IV 40 mls @ 2 mls/hr 07/24/24 20:38 07/24/24 21:04 Miscellaneous Supplies IV 07/25/24 16:37 0.5 mg/hr .Q20H SANJEEV 2 mls/hr Administration 0.5 MG/HR Insulin Human Lispro 0 unit 07/25/24 07:30 07/25/24 11:33 Insulin Lispro (Admelog) 1 Unit/0.01 Ml Unit SC 08/24/24 07:29 Not Given AC [facility] Protocol Ondansetron HCl 4 mg 07/24/24 21:43 Ondansetron Inj 2 Mg/Ml Inj 2 Ml IV 08/23/24 21:42 Q6H PRN NAUSEA OR VOMITING Protocol Spironolactone 25 mg 07/24/24 21:50 07/25/24 01:10 Spironolactone 25 Mg Tablet PO 08/23/24 21:49 25 mg HS SANJEEV Administration Plan A 84-year-old female with significant past medical history of hypertension, diabetes mellitus type 2, hyperlipidemia, anemia, hepatocellular disease, s/p pacemaker placement x 2 presented to ED on 07/24/2024 with chief complaint of worsening lower extremity edema and admitted for anasarca, likely secondary to heart failure #Anasarca #In setting of heart failure and liver cirrhosis -Patient had history of pacemaker implant, taking Lasix at home -Patient had history of bilateral lower extremity edema, following Dr. Langston and using furosemide 20 Mg p.o. twice daily, but recently since 3 weeks noted worsening of lower extremity edema -Denies shortness of breath, orthopnea -On physical examination, pansystolic murmur heard at mitral and tricuspid area. Lower extremity swelling extending up to the upper abdomen -Platelet 103, INR 1.2, total bilirubin 2.8, BNP 270, AST/ALT 19/11. 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 -Total bilirubin at the time of admission is 2.8, AST and ALT within normal limits -Albumin and total proteins are within normal limits, INR is 1.2 -less likely primary hepatocellular disease -Hepatitis panel came back negative Plan -Will continue diuresis for now -Will monitor liver functions #BLAKE on CKD stage IIIb versus CKD stage IV Likely cardiorenal syndrome/hepatorenal syndrome -Baseline creatinine is 1.5 in 2022 -Creatinine at the time of admission is 2.1 Plan -Will continue diuresis -Avoid nephrotoxic medications and renally dose medications #Diabetes mellitus type 2 - Presented with blood sugar of 129, has been taking metformin at home -A1c is 6.2 - Started on sliding scale insulin AC -Hypoglycemia protocol in place #Essential hypertension Presented with blood pressure 139/70 - Started on home carvedilol 6.25 Mg twice daily #Hyperlipidemia - Patient is taking lovastatin 20 Mg daily - Started on atorvastatin 40 Mg daily Hospital Maintenance: Dispo: medtele DVT ppx: Heparin GI ppx: not needed Diet: low sodium IV lines:peripheral Code status: Full Patient plan of care was discussed with the attending physician, Dr. Nelson and senior resident Dr. Polly Houser, PGY1 Attending Provider Attestation/Addendum I attest that I was physically present for the evaluation, physical examination, lab and imaging review of the patient with the residents. I discussed the case with the residents and agree with the findings and plans of care as documented above. Patient is an 84-year old female with past medical history of hypertension, diabetes, hyperlipidemia, anemia, hepatocellular disease, status post pacemaker placement who presented to the ED with complaint of bilateral lower extremity edema for 3 weeks.? She was admitted overnight for management of anasarca likely secondary to cirrhosis.? She is also noted to have BLAKE on CKD. This morning at bedside, patient appears comfortable, states she is feeling well and does not have new complaints.? Saturating well on room air.? Lab results show BUN/creatinine of 81/2.1, slightly changed from 79/2.1 yesterday.? 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 We will obtain echocardiography.? Continues to be on aggressive diuresis with bumetanide drip and spironolactone.? We will continue with fluid restriction, low-salt diet.? Bilirubin noted to be worsening from 2.8-3.1.? Gastroenterology following, appreciate recommendations. Amauri Nelson MD
--- NOTE | 2024-07-25 15:21 | PC.SS ---
Rounding note: patient on bumix drip.
--- NOTE | 2024-07-25 16:03 | PC.SS ---
Initial assessment: this is 84 year old female admitted for cirrhosis. Patient and family is Mexican speaking. Patient resides at home with spouse, Kathie. Patient requires some assistance with ADL's. Patient has a walker at home to assist with ambulation. Patient's PCP is Dr. Mauro Castillo. Patient also followed by Dr. Paris. Patient is not on dialysis and not diabetic. Patient was recommended for SNF if no family at home to assist patient with getting out of bed. Family to discuss decision for SNF vs. HH choices. SNF listing and HH listing provided to the patient and family. In case of an emergency the patient's daughter, Sarahi Howard could be contacted. D/c plan: SNF vs HH Next of kin: daughterSarahi
[2024-07-25] MEDS: INSULIN LISPRO (AdmeLOG) 1 UNIT/0.01 ML UNIT SC (16:57)
[2024-07-25] MEDS: ATORVASTATIN CALCIUM 20 MG TABLET 40 MG PO (21:25)
--- NOTE | 2024-07-25 22:10 | PD.IMPROG ---
Documentation for date of: 07/25/24 Subjective Subjective Interval history: Patient evaluated Swelling of the lower extremities since last On the medicine list check patient is off the Bumex drip Currently only on spironolactone 25 mg p.o. daily Exam Vital Signs Temp Pulse Resp BP Pulse Ox O2 Del Method 97.1 F 73 22 H 115/61 94 L Room Air 07/25/24 20:00 07/25/24 21:25 07/25/24 20:00 07/25/24 21:25 07/25/24 20:00 07/25/24 20:00 Objective Labs 07/25/24 04:44 07/25/24 04:44 Labs: Laboratory Results - last 24 hr 07/25/24 04:44 WBC 4.0 RBC 3.16 L Hgb 10.6 L Hct 30.7 L MCV 97 MCH 33.5 MCHC 34.5 RDW Std Deviation 51.9 H Plt Count 104 L Neut % (Auto) 69 Lymph % (Auto) 15 [place] % (Auto) 12 Eos % (Auto) 3 Baso % (Auto) 1 Neut # (Auto) 2.8 Lymph # (Auto) 0.6 L [place] # (Auto) 0.5 Eos # (Auto) 0.1 Baso # (Auto) 0.0 Immature Gran # (Auto) 0.01 H Absolute Nucleated RBC 0.00 Immature Gran % 0 Nucleated RBC % 0 Sodium 140 Potassium 3.5 Chloride 102 Carbon Dioxide 25.9 Anion Gap 12 BUN 81 H Creatinine 2.1 H Estim Creat Clear Calc 20.3 L eGFR 23 L BUN/Creatinine Ratio 39 H Glucose [address] Glu mg/dL 131 Hemoglobin A1c 6.2 H Calculated Osmolality 304 H Calcium 9.4 Corrected Calcium 9.4 Phosphorus 3.7 Magnesium 2.1 Iron 69 TIBC 394 Iron Saturation 17 L Unsat Iron Binding 325 H Total Bilirubin 3.1 H AST 18 ALT 10 Alkaline Phosphatase 231 H D Total Protein 7.2 Albumin 4.0 Globulin 3.2 Albumin/Globulin Ratio 1.3 Triglycerides 88 Cholesterol 139 LDL Cholesterol, Calc 70 HDL Cholesterol 51 Cholesterol/HDL Ratio 2.7 L Folate 17.06 TSH 2.19 Hepatitis A IgM Ab Non Reactive Hep Bs Antigen Non Reactive Hep B Core IgM Ab Non Reactive Hepatitis C Antibody Non Reactive Impressions Impression: # Anasarca # Pedal edema Plan continue spironolactone watch the renal function carefully 2 g sodium diet will encourage small dose of Lasix 20 mg p.o. 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 fluid restriction in 24 hours Spironolactone 25 mg p.o. twice daily Complete workup ordered for the chronic active hepatitis Will follow the patient # Cholelithiasis asymptomatic Other medical problems include # CHF # Essential hypertension # Diabetes mellitus type 2 # Cardiac arrhythmias requiring pacemaker placement Thank you very much for the opportunity to participate in the care of this patient Time Spent With Patient Time: Total time spent is greater than 50% in coordination of care (as documented) at patient's floor/unit and/or counseling patient:
[2024-07-26] VITALS (17 sets, daily range): BP systolic 115–128; BP diastolic 27–75; PULSE 70–92; RESP 16–97; TEMP 36.6–36.8; O2SAT 93–98; BMI 31.3
[2024-07-26 05:25] LABS: Basophils % (Auto) 1 % (0-2.5); Eosinophils # (Auto) 0.1 Thou/mm3 (0.0-0.5); Eosinophils % (Auto) 2 % (0-10); Hematocrit 26.9 % (36.0-46.0); Hemoglobin 9.3 g/dL (12.0-16.0); Immature Granulocytes % (Auto) 0 % (0-0); Immature Granulocytes Auto 0.01 Thou/mm3 (0.00-0.00); Lymphocytes # (Auto) 0.7 Thou/mm3 (1.0-4.8); Lymphocytes % (Auto) 23 % (10-50); Mean Corpuscular HGB Conc 34.6 g/dl (31.0-37.0); Mean Corpuscular Hemoglobin 33.6 pg (25.0-35.0); Mean Corpuscular Volume 97 fL (80-100); Monocytes # (Auto) 0.4 Thou/mm3 (0.0-0.8); Monocytes % (Auto) 15 % (0-12); Neutrophils # (Auto) 1.8 Thou/mm3 (1.8-7.7); Neutrophils % (Auto) 60 % (37-80); Nucleated Red Blood Cell % 0 /100 WBC (0); Platelet Count 96 Thou/mm3 (140-440); RDW Standard Deviation 52.5 fL (36.4-46.3); Red Blood Count 2.77 Miln/mm3 (4.00-5.20)
[2024-07-26] MEDS: HEPARIN SOD INJ 5000 UNIT/ML VIAL SC ×3 (05:44→21:41)
[2024-07-26 06:10] LABS: Alanine Aminotransferase 8 U/L (10-49); Albumin, Serum 3.5 gm/dL (3.4-4.8); Albumin/Globulin Ratio 1.2 (1.2-2.2); Alkaline Phosphatase 205 U/L (46-116); Anion Gap 10 (7-16); Aspartate Amino Transferase 18 U/L (0-34); BUN/Creatinine Ratio 41 Ratio (12-20); Bilirubin,Total 2.4 mg/dL (0.3-1.2); Blood Urea Nitrogen 82 mg/dL (9-23); Calcium 9.1 mg/dL (8.3-10.6); Calcium (Corrected) 9.5 mg/dL (8.5-10.1); Carbon Dioxide 27.2 mMol/L (20.0-31.0); Chloride 103 mMol/L (98-107); Estimated Creatinine Clearance 21.4 mL/min (>60); Glucose 109 mg/dL (74-106); Osmolality,Calculated 305 (275-295); Phosphorous 3.8 mg/dL (2.4-5.1); Potassium 3.4 mMol/L (3.4-5.1); Sodium 140 mMol/L (136-145); Total Protein 6.5 gm/dL (5.7-8.2); eGFR 24 See Note
--- NOTE | 2024-07-26 08:03 | ECHO_ITS ---
Transthoracic Echo Report Ht (in): 63 Wt (lb): 176 Exam Location: Portable Status: Inpatient Corrective Therapy Aide Teacher: REEBCCA Castellon^^^^ Indications: Procedure Performed: BP: / HR: Technical Quality: Fair MEASUREMENTS (Male / Female) Normal Values 2D ECHO LV Diastolic Diameter PLAX 5.9 cm 4.2 - 5.9 / 3.9 - 5.3 cm LV Systolic Diameter PLAX 4.1 cm IVS Diastolic Thickness 0.5 cm 0.6 - 1.0 / 0.6 - 0.9 cm LVPW Diastolic Thickness 0.8 cm 0.6 - 1.0 / 0.6 - 0.9 cm LV Relative Wall Thickness 0.2 LVOT Diameter 1.2 cm Aortic Root Diameter 2.5 cm LA Systolic Diameter LX 5.3 cm 3.0 - 4.0 / 2.7 - 3.8 cm LA Volume Index 83.2 cm?/m? 16 - 28 cm?/m? DOPPLER AV Peak Velocity 193.0 cm/s AV Peak Gradient 14.9 mmHg AV Mean Gradient 7.5 mmHg AV Velocity Time Integral 31.9 cm LVOT Peak Velocity 134.0 cm/s LVOT Peak Gradient 7.2 mmHg LVOT Velocity Time Integral 26.9 cm AV Area Cont Eq vti 1.0 cm? AV Area Cont Eq pk 0.8 cm? MV Area PHT 3.2 cm? MR Peak Velocity 497.5 cm/s MR Peak Gradient 99.0 mmHg Mitral E Point Velocity 90.4 cm/s Mitral A Point Velocity 43.5 cm/s Mitral E to A Ratio 2.1 LV E' Lateral Velocity 12.5 cm/s Mitral E to LV E' Lateral Ratio 7.2 LV E' Septal Velocity 6.2 cm/s Mitral E to LV E' Septal Ratio 14.6 TR Peak Velocity 320.8 cm/s TR Peak Gradient 41.2 mmHg PV Peak Velocity 100.0 cm/s PV Peak Gradient 4.0 mmHg RVOT Peak Velocity 54.7 cm/s FINDINGS Left Ventricle Normal left ventricular size, wall thickness, systolic function with no obvious regional wall motion abnormalities. There is grade II diastolic dysfunction of the left ventricle (pseudonormal filling pattern). The left ventricular ejection fraction is normal, estimated at 60-65%. Right Ventricle The right ventricle is normal in size and systolic function. The estimated right ventricular systolic pressure is elevevated, 65 mmHg. Left Atrium Severely increased left atrial volume 83.2 mL/m?. Right Atrium The right atrial cavity size is severely increased. Atrial Septum The interatrial septum appears normal with no evidence of a shunt. Aorta The aorta is normal by two-dimensional, color flow and Doppler interrogation. Mitral Valve [id number] mitral regurgitation. Mild mitral annular calcification. Aortic Valve Aortic valve sclerosis. Diffuse calcification of the aortic valve. Tricuspid Valve There is moderate to severe tricuspid valve regurgitation. Pulmonic Valve The pulmonic valve is not well visualized. There is no significant pulmonic valve regurgitation. Vessels Dilated inferior vena cava. Less than 50% respiratory change in dimension of the inferior vena cava abnormal. Pericardium The pericardium is normal by two-dimensional imaging. There is no significant pericardial effusion. CONCLUSIONS indication: Anasarca LVEF 55-60%. Diastolic Dysfunction II. RVSP elevated 65 mmHg. 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
[2024-07-26] MEDS: carVEDILOL 3.125 MG TABLET 6.25 MG PO ×2 (08:10→21:43)
--- NOTE | 2024-07-26 08:51 | PC.SS ---
SS follow up: the patient has decided d/c home with home health services. No preferred agency at this time.
[2024-07-26] MEDS: BUMETANIDE INJ 0.25 MG/ML VIAL 4 ML 2 MG IVP ×3 (09:12→21:42)
[2024-07-26] MEDS: POTASSIUM CHLORIDE 20 mEq TABCR 40 MEQ PO (09:16)
[2024-07-26] MEDS: INSULIN LISPRO (AdmeLOG) 1 UNIT/0.01 ML UNIT SC (12:02)
--- NOTE | 2024-07-26 13:12 | CHAP ---
10:30 AM Visited by spiritual care volunteer Provided prayer for Patient.
--- NOTE | 2024-07-26 13:13 | CHAP ---
10:30 AM Visited by spiritual care volunteer Provided prayer for Patient.
--- NOTE | 2024-07-26 14:46 | ESPR_ITS ---
<Statement entered by Juan Matias MD - 07/27/24 14:21> Senior Resident Attestation: I supervised/discussed management plan with internal sales physician Dr. Houser, and was involved in the care of this patient. I personally saw and examined the patient and discussed the assessment and plan with the entire medicine team, including my attending. I agree with the assessment and plan as documented. Patient's care was discussed with attending physician, Dr. Nelson. Juan Matias MD PGY-2. Documentation for date of: 07/26/24 Subjective Subjective Interval history: Patient is seen and examined at the bedside No acute overnight events. Denies any other complaints Vitals are stable. On physical examination, pedal edema seems to be decreasing. Stopped Bumex drip and started on Bumex 2 Mg IV push 3 times daily Will continue to monitor urine output and renal functions. Supplemented with 40meq of oral potassium Echo is done, read pending Exam Vital Signs Temp Pulse Resp BP Pulse Ox O2 Del Method O2 Flow Rate 97.9 F 92 20 115/62 98 Nasal Cannula 1 07/26/24 11:34 07/26/24 12:00 07/26/24 11:34 07/26/24 11:34 07/26/24 11:34 07/26/24 11:34 07/26/24 11:34 Narrative Exam General: Awake. lying comfortably on the bed HEENT: Normocephalic, atraumatic, mucous membranes moist. Heart: Regular rate and rhythm, pansystolic murmur heard in mitral and tricuspid area. Pacemaker noted Lungs: Clear to auscultation with no wheezing or crackles. Abdomen: Soft, moderately distended, nontender, positive bowel sounds. ?No guarding or rebound tenderness. Neurologic: Alert and oriented x3, no gross neurological deficit, and patient able to move all 4 extremities. Extremities: Bilateral lower extremity edema extending up to the upper abdomen Skin: No rash or ecchymoses. Objective Labs 07/27/24 04:50 07/27/24 04:50 Labs: Laboratory Results - last 24 hr 07/26/24 04:15 WBC 3.0 L RBC 2.77 L Hgb 9.3 L Hct 26.9 L MCV 97 MCH 33.6 MCHC 34.6 RDW Std Deviation 52.5 H Plt Count 96 L Neut % (Auto) 60 Lymph % (Auto) 23 Mckean % (Auto) 15 H Eos % (Auto) 2 Baso % (Auto) 1 Neut # (Auto) 1.8 Lymph # (Auto) 0.7 L Mckean # (Auto) 0.4 Eos # (Auto) 0.1 Baso # (Auto) 0.0 Immature Gran # (Auto) 0.01 H Absolute Nucleated RBC 0.00 Immature Gran % 0 Nucleated RBC % 0 Sodium 140 Potassium 3.4 Chloride 103 Carbon Dioxide 27.2 Anion Gap 10 BUN 82 H Creatinine 2.0 H Estim Creat Clear Calc 21.4 L eGFR 24 L BUN/Creatinine Ratio 41 H Glucose 109 H Calculated Osmolality 305 H Calcium 9.1 Corrected Calcium 9.5 Phosphorus 3.8 Magnesium 2.0 Total Bilirubin 2.4 H D AST 18 ALT 8 L Alkaline Phosphatase 205 H D Total Protein 6.5 Albumin 3.5 D Globulin 3.0 Albumin/Globulin Ratio 1.2 Quality Measures Quality Measures none Advance care planning discussed with:: patient and child Assessment & Plan Assessment Current Active Medications: Generic Name Dose Route Start Last Admin Trade Name Freq PRN Reason Stop Dose Admin Acetaminophen 650 mg 07/24/24 21:43 Acetaminophen 325 Mg Tablet PO 08/23/24 21:42 Q6H PRN Fever >101.5 Acetaminophen 650 mg 07/24/24 21:43 Acetaminophen 325 Mg Tablet PO 08/23/24 21:42 Q6H PRN PAIN SCALE 1-3 (mild Atorvastatin Calcium 40 mg 07/25/24 21:00 07/25/24 21:25 Atorvastatin Calcium 20 Mg Tablet PO 08/24/24 20:59 40 mg HS SANJEEV Administration Bumetanide 2 mg 07/26/24 08:00 07/26/24 09:12 Bumetanide Inj 0.25 Mg/Ml Vial 4 Ml IVP 08/25/24 07:59 2 mg TID SANJEEV Administration Carvedilol 6.25 mg 07/25/24 09:00 07/26/24 08:10 Carvedilol 3.125 Mg Tablet PO 08/24/24 08:59 6.25 mg BID SANJEEV Administration Dextrose 25 ml 07/24/24 21:53 Dextrose 50%-Water Inj 50 Ml Syringe IV 08/23/24 21:52 Q15MIN PRN BG 50-70 responsive npo pt Dextrose 50 ml 07/24/24 21:53 Dextrose 50%-Water Inj 50 Ml Syringe IV 08/23/24 21:52 Q15MIN PRN BG <50 OR BG <70 & pt unresponsive Glucagon 1 mg 07/24/24 21:53 Glucagon Inj 1 Mg Vial IM Q15MIN PRN BG <70, and no IV access Heparin Sodium (Porcine) 5,000 unit 07/24/24 22:00 07/26/24 05:44 Heparin Sod Inj 5000 Unit/Ml Vial SC 08/07/24 21:59 5,000 unit Q8HR SANJEEV Administration Insulin Human Lispro 0 unit 07/25/24 07:30 07/26/24 12:02 Insulin Lispro (Admelog) 1 Unit/0.01 Ml Unit SC 08/24/24 07:29 1 unit AC SANJEEV Administration Protocol Ondansetron HCl 4 mg 07/24/24 21:43 Ondansetron Inj 2 Mg/Ml Inj 2 Ml IV 08/23/24 21:42 Q6H PRN NAUSEA OR VOMITING Protocol Spironolactone 25 mg 07/24/24 21:50 07/25/24 21:25 Spironolactone 25 Mg Tablet PO 08/23/24 21:49 25 mg HS SANJEEV Administration Plan A 84-year-old female with significant past medical history of hypertension, diabetes mellitus type 2, hyperlipidemia, anemia, hepatocellular disease, s/p pacemaker placement x 2 presented to ED on 07/24/2024 with chief complaint of worsening lower extremity edema and admitted for anasarca, likely secondary to heart failure #Anasarca #In setting of heart failure and liver cirrhosis -Patient had history of pacemaker implant, taking Lasix at home -Patient had history of bilateral lower extremity edema, following Dr. Langston and using furosemide 20 Mg p.o. twice daily, but recently since 3 weeks noted worsening of lower extremity edema -Denies shortness of breath, orthopnea -On physical examination, pansystolic murmur heard at mitral and tricuspid area. Lower extremity swelling extending up to the upper abdomen -Platelet 103, INR 1.2, total bilirubin 2.8, BNP 270, AST/ALT 19/11. 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 # Hyperbilirubinemia, resolving -Total bilirubin at the time of admission is 2.8 --> 4/10, 2.4, AST and ALT within normal limits -Albumin and total proteins are within normal limits, INR is 1.2 -less likely primary hepatocellular disease -Hepatitis panel came back negative Plan -Will continue diuresis for now -Will monitor liver functions #BLAKE on CKD stage IIIb versus CKD stage IV Likely cardiorenal syndrome/hepatorenal syndrome -Baseline creatinine is 1.5 in 2022 -Creatinine at the time of admission is 2.1 Plan -Will continue diuresis -Avoid nephrotoxic medications and renally dose medications #Diabetes mellitus type 2 - Presented with blood sugar of 129, has been taking metformin at home -A1c is 6.2 -Started on sliding scale insulin AC -Hypoglycemia protocol in place #Essential hypertension Presented with blood pressure 139/70 - Started on home carvedilol 6.25 Mg twice daily #Hyperlipidemia - Patient is taking lovastatin 20 Mg daily - Started on atorvastatin 40 Mg daily Hospital Maintenance: Dispo: medtele DVT ppx: Heparin GI ppx: not needed Diet: low sodium IV lines:peripheral Code status: Full Patient plan of care was discussed with the attending physician, Dr. Nelson and senior resident Dr. Polly Houser, PGY1 Attending Provider Attestation/Addendum I attest that I was physically present for the evaluation, physical examination, lab and imaging review of the patient with the residents. I discussed the case with the residents and agree with the findings and plans of care as documented above. At bedside today, patient states she is feeling well and denies any new complaints. She continues to have anasarca. Vitals have been stable. Saturating well on 1 to 2 L nasal cannula. Lab results show improvement in her kidney function from BUN/creatinine of 81/2.1-82/2.0. Liver function noted to be slowly improving to from bilirubin of 3.1-2.4. Patient underwent echocardiography, shows stage II diastolic dysfunction, normal left ventricular ejection fraction, RSVP of 65 mmHg, moderate to severe mitral regurgitation anticoagulant workstation, severe biatrial dilatation. She also has dilated IVC. Patient had a fluid balance of 970 cc in last 24 hours. We will continue with aggressive diuresis with Bumex 2 mg IV 3 times daily along with spironolactone. We will continue with the fluid restriction, strict ins and outs. Amauri Nelson MD
--- NOTE | 2024-07-26 15:15 | PC.SS ---
Rounding note: plan is to titrate down bumex drip.
--- NOTE | 2024-07-26 19:33 | PC.NURSE ---
day urine output 1050 ml
--- NOTE | 2024-07-26 20:03 | PD.IMPROG ---
Documentation for date of: 07/26/24 Subjective Subjective Interval history: Patient evaluated Pedal edema is much better Exam Vital Signs Temp Pulse Resp BP Pulse Ox O2 Del Method O2 Flow Rate 97.9 F 73 16 122/64 98 Nasal Cannula 1 07/26/24 15:15 07/26/24 16:00 07/26/24 15:15 07/26/24 15:15 07/26/24 15:15 07/26/24 15:15 07/26/24 15:15 Objective Labs 07/26/24 04:15 07/26/24 04:15 Labs: Laboratory Results - last 24 hr 07/26/24 04:15 WBC 3.0 L RBC 2.77 L Hgb 9.3 L Hct 26.9 L MCV 97 MCH 33.6 MCHC 34.6 RDW Std Deviation 52.5 H Plt Count 96 L Neut % (Auto) 60 Lymph % (Auto) 23 Gilchrist % (Auto) 15 H Eos % (Auto) 2 Baso % (Auto) 1 Neut # (Auto) 1.8 Lymph # (Auto) 0.7 L Gilchrist # (Auto) 0.4 Eos # (Auto) 0.1 Baso # (Auto) 0.0 Immature Gran # (Auto) 0.01 H Absolute Nucleated RBC 0.00 Immature Gran % 0 Nucleated RBC % 0 Sodium 140 Potassium 3.4 Chloride 103 Carbon Dioxide 27.2 Anion Gap 10 BUN 82 H Creatinine 2.0 H Estim Creat Clear Calc 21.4 L eGFR 24 L BUN/Creatinine Ratio 41 H Glucose 109 H Calculated Osmolality 305 H Calcium 9.1 Corrected Calcium 9.5 Phosphorus 3.8 Magnesium 2.0 Total Bilirubin 2.4 H D AST 18 ALT 8 L Alkaline Phosphatase 205 H D Total Protein 6.5 Albumin 3.5 D Globulin 3.0 Albumin/Globulin Ratio 1.2 Impressions Impression: Pedal edema Anasarca Improving on spironolactone Assessment & Plan A&P Narrative # Anasarca most likely due to underlying cirrhotic liver disease of uncertain etiology 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 fluid restriction in 24 hours Spironolactone 25 mg p.o. twice daily Complete workup ordered for the chronic active hepatitis Will follow the patient # Cholelithiasis asymptomatic Other medical problems include # CHF # Essential hypertension # Diabetes mellitus type 2 # Cardiac arrhythmias requiring pacemaker placement Thank you very much for the opportunity to participate in the care of this patient Time Spent With Patient Time: Total time spent is greater than 50% in coordination of care (as documented) at patient's floor/unit and/or counseling patient:
[2024-07-26] MEDS: ATORVASTATIN CALCIUM 20 MG TABLET 40 MG PO (21:43)
[2024-07-26] MEDS: SPIRONOLACTONE 25 MG TABLET PO (21:44)
[2024-07-27] VITALS (14 sets, daily range): BP systolic 106–129; BP diastolic 51–73; PULSE 71–100; RESP 18–95; TEMP 36.2–36.9; O2SAT 91–98; BMI 11.0
[2024-07-27] MEDS: HEPARIN SOD INJ 5000 UNIT/ML VIAL SC ×3 (05:25→21:18)
[2024-07-27] MEDS: BUMETANIDE INJ 0.25 MG/ML VIAL 4 ML 2 MG IVP ×3 (05:26→21:14)
[2024-07-27 05:33] LABS: Basophils % (Auto) 1 % (0-2.5); Eosinophils # (Auto) 0.1 Thou/mm3 (0.0-0.5); Eosinophils % (Auto) 3 % (0-10); Hematocrit 27.4 % (36.0-46.0); Hemoglobin 9.2 g/dL (12.0-16.0); Immature Granulocytes % (Auto) 0 % (0-0); Immature Granulocytes Auto 0.01 Thou/mm3 (0.00-0.00); Lymphocytes # (Auto) 0.7 Thou/mm3 (1.0-4.8); Lymphocytes % (Auto) 23 % (10-50); Mean Corpuscular HGB Conc 33.6 g/dl (31.0-37.0); Mean Corpuscular Hemoglobin 33.5 pg (25.0-35.0); Mean Corpuscular Volume 100 fL (80-100); Monocytes # (Auto) 0.5 Thou/mm3 (0.0-0.8); Monocytes % (Auto) 15 % (0-12); Neutrophils # (Auto) 1.8 Thou/mm3 (1.8-7.7); Neutrophils % (Auto) 58 % (37-80); Nucleated Red Blood Cell % 0 /100 WBC (0); Platelet Count 95 Thou/mm3 (140-440); RDW Standard Deviation 54.4 fL (36.4-46.3); Red Blood Count 2.75 Miln/mm3 (4.00-5.20); White Blood Count 3.1 Thou/mm3 (3.6-11.0)
[2024-07-27 05:56] LABS: Alanine Aminotransferase 7 U/L (10-49); Albumin, Serum 3.5 gm/dL (3.4-4.8); Albumin/Globulin Ratio 1.2 (1.2-2.2); Alkaline Phosphatase 202 U/L (46-116); Anion Gap 12 (7-16); Aspartate Amino Transferase 17 U/L (0-34); BUN/Creatinine Ratio 42 Ratio (12-20); Bilirubin,Total 2.3 mg/dL (0.3-1.2); Blood Urea Nitrogen 83 mg/dL (9-23); Calcium 9.6 mg/dL (8.3-10.6); Carbon Dioxide 28.2 mMol/L (20.0-31.0); Chloride 101 mMol/L (98-107); Estimated Creatinine Clearance 20.9 mL/min (>60); Glucose 102 mg/dL (74-106); Magnesium 1.8 mg/dL (1.6-2.6); Osmolality,Calculated 306 (275-295); Phosphorous 3.5 mg/dL (2.4-5.1); Potassium 3.8 mMol/L (3.4-5.1); Sodium 141 mMol/L (136-145); Total Protein 6.5 gm/dL (5.7-8.2); eGFR 24 See Note
[2024-07-27] MEDS: carVEDILOL 3.125 MG TABLET 6.25 MG PO ×2 (08:40→21:14)
--- NOTE | 2024-07-27 10:09 | XR_ITS ---
Examination: Venous duplex lower extremity sonogram, bilateral. Date and time of exam: July 27, 2024 1110 hrs. Indications: Leg swelling and pain beginning 3 weeks ago Technique: Multiple sonographic images of the deep venous system have been obtained. B-mode/2-D grayscale imaging of vascular structures and Doppler spectral analysis (waveforms) and color performed Both legs are examined. Findings: Deep venous systems do not demonstrate abnormal echogenicity. All visualized deep veins exhibit compressibility. All visualized deep veins exhibit augmentation. Impression: Negative for deep vein thrombosis
--- NOTE | 2024-07-27 12:35 | CHAP ---
Patient was visited by the Spiritual Care Volunteer who prayed for them. (Volunteer was in the hospital from 11:00-12:35.)
--- NOTE | 2024-07-27 13:35 | ESCONSULT_ITS ---
<Statement entered by Evin Evans MD - 07/28/24 14:08> I personally evaluated examined the patient with resident physician PGY [address] Radha Kowalski MD the patient has a restrictive cardiomyopathy classic findings on cardiac echo with normal left ventricle function and large right and left ring severe biatrial enlargement with moderate to severe tricuspid and mitral regurgitation with moderate pulmonary hypertension. These are classic findings of restrictive cardiomyopathy with poor prognosis intermediate outcomes are poor patient has progressive right heart failure symptoms with massive edema of both feet due to combination of pulmonary hypertension tricuspid regurgitation. Agree with the treatment plan recommendation patient should be given diuretics cautiously Patient has atrial fibrillation controlled heart rate. 1 note of caution patient's heart rate should be kept at least 60 or above severe bradycardia does increase and worsen the symptoms because of diastolic filling is important for this patient's bradycardia will worsen the symptoms. Recommend continue present medication including diuretic bumetanide and spironolactone and management of hypertension. HPI Data of Consult Requesting Physician: Amauri Nelson MD Admitting Provider: Bertrand Garcia MD Attending Provider: Amauri Nelson MD Primary Care Provider: Mauro Castillo MD Consult Narrative Reason for consult: HFpEF, suspected pulmonary artery hypertension History of present illness: Patient is an 84-year-old Australian-speaking female with past medical history of hypertension, type 2 diabetes, hyperlipidemia, CKD stage 3B, anemia, cirrhosis, s/p pacemaker placement x 2 who initially presented to ED on 07/24/2024 with 3 weeks of worsening lower extremity bilateral lower limb edema. Patient is accompanied by at bedside. History taken utilizing [employer] it desktop support specialist. Patient states she follows with Dr. Leos, although unclear whether she has had recent in-person appointments, she may just be having pacemaker checks. Patient is uncertain why she had pacemaker placed. Patient does endorse symptoms of generalized fatigue. She reports some occasional palpitations but denies chest pain. Patient denies history of alcohol use or hepatitis. Patient also reports progression in lower extremity edema over the last 6 months. Patient states she does take a diuretic at home. Review of vitals and labs show normal BP, paced HR at 74, patient is afebrile and she is saturating on room air without accessory muscle usage. Patient has chronic, normocytic anemia with Hgb 9.0-10.0 range and chronic kidney disease with creatinine at 2.0 and GFR 24. Total bilirubin is chronically elevated secondary to cirrhosis around 2.4. TSH is normal at 2.19. BNP is 270. Troponin was negative on admission. EKG showed electronically paced rhythm at 74. CXR showed congestion related to CHF. CT chest/abdomen/pelvis showed anasarca, mild to moderate ascites, cirrhosis, and mild CHF. Bilateral venous duplex US of lower extremities was negative for DVT. Complete TTE showed estimated EF 55-60%, stage 2 diastolic dysfunction, extremely dilated right and left atria, with severe mitral and tricuspid regurgitation. Right ventricular systolic pressure is elevated. Cardiology was consulted for further evaluation of CHF with preserved EF and possible pulmonary hypertension. cc:: cc: Amauri Nelson MD Past Medical History Past Medical History Comments PMH COMMENT: Past Medical History: 84-year-old Australian-speaking female with past medical history of hypertension, type 2 diabetes, hyperlipidemia, CKD stage 3B, anemia, cirrhosis, s/p pacemaker placement x 2 Family History: Cardiac disease in mother, brother, and sister Surgical History: 1 section, s/p pacemaker x 2 Social History: Denies history of smoking, denies current alcohol use, denies recreational drug use Current Medications: Digoxin 0.125 mg qday, carvedilol 6.25 mg BID, furosemide 20 mg BID, metolazone 5 mg qday, metformin 500 mg BID, potassium chloride 10 mEq qday, lovastatin 20 mg HS, pantoprazole 40 mg qday, ferrous sulfate 325 mg BID, Vitamin B12 500 mcg qday Allergies: Aspirin-swelling to lips, chlorpheniramine-unknown, diphenhydramine- swelling to lips, guaifenesin-unknown, phenylpropanolamine-swelling to lips, salicylates-swelling to lips Exam Vital Signs Temp Pulse Resp BP Pulse Ox O2 Del Method O2 Flow Rate 97.1 F 84 22 H 119/73 94 L Room Air 1 07/27/24 11:59 07/27/24 12:00 07/27/24 11:59 07/27/24 11:59 07/27/24 11:59 07/27/24 11:59 07/27/24 04:00 Narrative Exam Physical Exam General: Awake and in no acute distress. Conversational and non-toxic appearing on room air. HEENT: Normocephalic, atraumatic, mucous membranes moist. Heart: Regular rate and rhythm, normal S1 and S2, 2/6 systolic murmur at the left sternal border. Lungs: Clear to auscultation with no wheezing or crackles. Abdomen: Soft, distended, mild ascites, nontender, positive bowel sounds. ?No guarding or rebound tenderness. Neurologic: Alert and oriented x3, no gross neurological deficit, and patient able to move all 4 extremities. Extremities: 4+ bilateral pitting lower extremity edema Skin: No rash or ecchymoses. Results Labs 07/28/24 05:00 07/28/24 05:00 Labs: Short CBC 07/27/24 Range/Units 04:50 WBC 3.1 L (3.6-11.0) Thou/mm3 Hgb 9.2 L (12.0-16.0) g/dL Hct 27.4 L (36.0-46.0) % Plt Count 95 L (140-440) Thou/mm3 BMP 07/27/24 04:50 Sodium 141 Potassium 3.8 Chloride 101 Carbon Dioxide 28.2 BUN 83 H Creatinine 2.0 H Glucose 102 Calcium 9.6 Liver Function 07/27/24 Range/Units 04:50 Total Bilirubin 2.3 H (0.3-1.2) mg/dL AST 17 (0-34) U/L ALT 7 L (10-49) U/L Alkaline Phosphatase 202 H (46-116) U/L Albumin 3.5 (3.4-4.8) gm/dL Quality Measures Quality Measures none Advance care planning discussed with:: patient and spouse Medications Home Medications and Allergies Home Medications ?Medication ?Instructions ?Recorded ?Confirmed ?Type lovastatin 20 mg tablet 20 mg PO HS 06/21/17 5 History pantoprazole 40 mg tablet,delayed 40 mg PO QDAY 07/25/24 History release fluticasone propionate 50 1 spray intranasal QDAY 04/1804/30/22 History mcg/actuation nasal spray,suspension carvedilol 6.25 mg tablet 6.25 mg PO BID 07/25/2401/10 History cyanocobalamin (vitamin B-12) 500 500 mcg PO QDAY 01/1007/25/24 History mcg tablet (Vitamin B-12) digoxin 125 mcg (0.125 mg) tablet 0.125 mg PO DAILY 07/25/24 History ferrous sulfate 325 mg (65 mg 325 mg PO BID 07/25/24 0 07/25/24 History iron) tablet furosemide 20 mg tablet 20 mg PO BID 07/25/24 History metolazone 5 mg tablet 5 mg PO DAILY 07/25/2407/25 History potassium chloride 10 mEq 10 meq PO DAILY 07/25/2401/10 History tablet,extended release Allergies Allergy/AdvReac Type Severity Reaction Status Date / Time aspirin Allergy Severe SWELLING Verified 07/24/24 14:26 TO LIPS chlorpheniramine Allergy Severe UNKNOWN Verified 07/24/24 14:26 PER PT diphenhydramine Allergy Severe SWELLING Verified 07/24/24 14:26 TO LIPS guaifenesin Allergy Severe UNKNOWN Verified 07/24/24 14:26 phenylpropanolamine Allergy Severe SWELLING Verified 07/24/24 14:26 TO LIPS Salicylates Allergy Severe SWELLING Verified 07/24/24 14:26 TO LIPS Visit Medications Acetaminophen (Acetaminophen 325 Mg Tablet) 650 mg PO Q6H PRN PRN Reason: Fever >101.5 Stop: 08/23/24 21:42 Acetaminophen (Acetaminophen 325 Mg Tablet) 650 mg PO Q6H PRN PRN Reason: PAIN SCALE 1-3 (mild Stop: 08/23/24 21:42 Atorvastatin Calcium (Atorvastatin Calcium 20 Mg Tablet) 40 mg PO HS SANJEEV Stop: 08/24/24 20:59 Last Admin: 07/26/24 21:43 Dose: 40 mg Bumetanide (Bumetanide Inj 0.25 Mg/Ml Vial 4 Ml) 2 mg IVP TID SANJEEV Stop: 08/25/24 07:59 Last Admin: 07/27/24 05:26 Dose: 2 mg Carvedilol (Carvedilol 3.125 Mg Tablet) 6.25 mg PO BID SANJEEV Stop: 08/24/24 08:59 Last Admin: 07/27/24 08:40 Dose: 6.25 mg Dextrose (Dextrose 50%-Water Inj 50 Ml Syringe) 25 ml IV Q15MIN PRN PRN Reason: BG 50-70 responsive npo pt Stop: 08/23/24 21:52 Dextrose (Dextrose 50%-Water Inj 50 Ml Syringe) 50 ml IV Q15MIN PRN PRN Reason: BG <50 OR BG <70 & pt unresponsive Stop: 08/23/24 21:52 Glucagon (Glucagon Inj 1 Mg Vial) 1 mg IM Q15MIN PRN PRN Reason: BG <70, and no IV access Heparin Sodium (Porcine) (Heparin Sod Inj 5000 Unit/Ml Vial) 5,000 unit SC Q8HR SANJEEV Stop: 08/07/24 21:59 Last Admin: 07/27/24 05:25 Dose: 5,000 unit Insulin Human Lispro (Insulin Lispro (Admelog) 1 Unit/0.01 Ml Unit) 0 unit SC AC SANJEEV; Protocol Stop: 08/24/24 07:29 Last Admin: 07/27/24 12:01 Dose: Not Given Ondansetron HCl (Ondansetron Inj 2 Mg/Ml Inj 2 Ml) 4 mg IV Q6H PRN; Protocol PRN Reason: NAUSEA OR VOMITING Stop: 08/23/24 21:42 Spironolactone (Spironolactone 25 Mg Tablet) 25 mg PO HS SANJEEV Stop: 08/23/24 21:49 Last Admin: 07/26/24 21:44 Dose: 25 mg Discontinued Medications Bumetanide (Bumetanide Inj 0.25 Mg/Ml Vial 4 Ml) 1 mg IVP X1 ONE Stop: 07/24/24 20:39 Last Admin: 07/24/24 21:05 Dose: 1 mg Bumetanide 10 mg/ IV (Miscellaneous Supplies) 40 mls @ 2 mls/hr IV .Q20H SANJEEV Stop: 07/25/24 16:37 Last Admin: 07/24/24 21:04 Dose: 0.5 mg/hr, 2 mls/hr Potassium Chloride (Potassium Chloride 20 Meq Tabcr) 40 meq PO X1 ONE Stop: 07/26/24 08:03 Last Admin: 07/26/24 09:16 Dose: 40 meq Assessment & Plan Plan 84-year-old Australian-speaking female with past medical history of hypertension, type 2 diabetes, hyperlipidemia, CKD stage 3B, anemia, cirrhosis, s/p pacemaker placement x 2 who initially presented to ED on 07/24/2024 with 3 weeks of worsening lower extremity bilateral lower limb edema, subsequently admitted for further management of anasarca. Cardiology was consulted for further evaluation of CHF with preserved EF and possible pulmonary hypertension. 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 07/27/2024 Echo showed LVEF 55-60%. EF is preserved but there is diastolic dysfunction II due to stiffening of the ventricles. There are extremely large right and left atria and severe mitral and tricuspid regurgitation. Unfortunately surgical repair is not an option given restrictive cardiomyopathy and medical management alone is recommended with diuretic therapy. Due to the above patient has likely type 2 PAH. Prognosis for this patient is guarded and condition will likely progress over the next 3-5 years. Diagnosis was explained to the patient and her at bedside. -Continue diuretics including Bumex 2 mg TID, Aldactone 25 mg HS -Maintain HR in the 70-80 range -No need for cath or ischemic heart disease workup for now Cardiology will continue to follow. Patient was discussed with the attending, Dr. Evans. Thank you for allowing us to participate in the care of this patient. Christie Kowalski, PGY-2
--- NOTE | 2024-07-27 14:28 | PRELIM_ITS ---
Bilateral lower extremity venous Doppler ultrasound. July 27, 2024 1110 hours Clinical history: to R/o DVT Technique: Duplex scan of the bilateral lower extremity deep venous systems was performed utilizing 2D grayscale imaging, Doppler spectral analysis and color flow Doppler and with compression. Comparison: No prior study is available for comparison at the time of interpretation Findings: Wright scale, color flow and spectral Doppler evaluation of the lower extremity deep veins was performed. Right: The common femoral, superficial femoral and popliteal veins are patent and compressible. Normal respiratory variation is noted. The calf veins to the extent visualized are patent. There is no evidence of occlusive or nonocclusive thrombus. The great saphenous vein is patent at the level of the saphenofemoral junction. . Left: The common femoral, superficial femoral and popliteal veins are patent and compressible. Normal respiratory variation is noted. The calf veins to the extent visualized are patent. There is no evidence of occlusive or nonocclusive thrombus. The great saphenous vein is patent at the level of the saphenofemoral junction. Mild edema is noted in the lower extremities bilaterally. Impression: No sonographic evidence of deep venous thrombosis in both lower extremities. Report Electronically Signed By: Kolton Celaya 07/27/2024 2:28:07 PM [EST]
--- NOTE | 2024-07-27 15:47 | PD.RESCONSUL ---
HPI Data of Consult Consult date: 07/27/24 Requesting Physician: Amauri Nelson MD Admitting Provider: Bertrand Garcia MD Attending Provider: Amauri Nelson MD Primary Care Provider: Mauro Castillo MD Consult Narrative Reason for consult: BLAKE History of present illness: Ms. Franks is a 84-year-old female with PMHx of HTN, T2DM, HLD, anemia, hepatocellular disease, s/p pacemaker presenting to ED with worsening lower extremity edema. She has a known history of heart failure and cirrhosis. Home medications include LASIX 20 mg BID, METOLAZONE 5 mg, DIGOXIN, METFORMIN, CARVEDILOL, and statin. Reports taking her medications daily as scheduled, however has been having worsening lower extremity edema. Reports she is urinating as usual, no decrease of urinary volume or incontinence. Denies urinary symptoms such as dysuria or hematuria. Denies recent or active illness including headache, fever, fall, trauma, LOC, syncope, chest pain, shortness of breath, abdominal pain, N/V/D/C, or GI bleed. On presentation she was severely anasarcous. CXR showed mild/moderate CHF. Venous Doppler negative for lower extremity DVT bilaterally. CT CAP showed mild CHF, cirrhosis, cholelithiasis, mild ? moderate ascites, anasarca. EKG showed electronic atrial pacemaker, no acute ST changes. Echocardiogram showed EF 55 to 60%, distal dysfunction type II, mod-severe MR & TR. She came without CR 2.1 (baseline 1.5), EGFR 24 (baseline 30s), BUN 83. She was initially on BUMEX drip which was switched to BUMEX 2 mg TID. She had a total urine output of 2000, balance is -910. Other significant labs include serum osmolarity 306, TB 2.3, ALP 202, BNP 270, normal troponin. Hgb 9.3, WBC 3.0, PLT 96. UA is bland without UTI. Nephrology was consulted for management of BLAKE and concern for poor urine output. cc:: cc: Amauri Nelson MD Past Medical History Past Medical History NEUROLOGIC: Negative Neurological Disorders or Seizures CARDIAC: Positive Cardiac Disorders, Hypercholesterolemia, Congestive Heart Failure and Hypertension RESPIRATORY: Negative Chronic Obstructive Pulmonary Disease (COPD) GASTROINTESTINAL: Negative Gastrointestinal Disorders GENITOURINARY: Negative Genitourinary Disorders or Renal Disease MUSCULOSKELETAL: Negative Musculoskeletal Disorders ENT: Positive Cataracts ENDOCRINE: Positive Endocrine Disorders and Diabetes Mellitus Type 2; Negative Diabetes Mellitus Type 1 HEMATOLOGIC: Positive Blood Disorders and Anemia OTHER HISTORY: Positive Chicken Pox, Measles and Mumps; Negative Hospitalization, Autoimmune Disease, Down Syndrome, Developmental Delay, Falls, Blood Transfusions, Blood Transfusion Reaction, Anesthesia Reactions or Cancer Surgical History SURGICAL: Positive Pacemaker OTHER SURGICAL HX: As in the history of present illness Social History SMOKING STATUS: Never smoker SECOND HAND EXPOSURE: No SUBSTANCE USE: does not use Past Medical History Comments PMH COMMENT: Past Medical History: 84-year-old Faroese-speaking female with past medical history of hypertension, type 2 diabetes, hyperlipidemia, CKD stage 3B, anemia, cirrhosis, s/p pacemaker placement x 2 Family History: Cardiac disease in mother, brother, and sister Surgical History: 1 section, s/p pacemaker x 2 Social History: Denies history of smoking, denies current alcohol use, denies recreational drug use Current Medications: Digoxin 0.125 mg qday, carvedilol 6.25 mg BID, furosemide 20 mg BID, metolazone 5 mg qday, metformin 500 mg BID, potassium chloride 10 mEq qday, lovastatin 20 mg HS, pantoprazole 40 mg qday, ferrous sulfate 325 mg BID, Vitamin B12 500 mcg qday Allergies: Aspirin-swelling to lips, chlorpheniramine-unknown, diphenhydramine-swelling to lips, guaifenesin-unknown, phenylpropanolamine-swelling to lips, salicylates-swelling to lips Exam Vital Signs Temp Pulse Resp BP Pulse Ox O2 Del Method O2 Flow Rate 97.1 F 73 22 H 116/62 94 L Room Air 1 07/27/24 11:59 07/27/24 13:51 07/27/24 11:59 07/27/24 13:51 07/27/24 11:59 07/27/24 11:59 07/27/24 04:00 Narrative Exam GENERAL Normal appearing elderly female, on room air, NAD HEENT NCAT.?CHASE. Oral mucosa is moist. Patent Nares NECK Supple, nontender, no thyromegaly, no meningismus, no JVD, no step offs CHEST RRR, no m/g/r CTAB, no w/r/r. Symmetrical chest rise. No intercostal subcostal retraction Atraumatic, nontender, no crepitus, symmetrical expansion. ABDOMEN Soft, flat, nontender. No guarding/rebound tenderness/masses. Bowel sounds presents EXTREMITIES Significant 3+ bilateral LE pitting edema, extending above the waistline. SKIN Warm and dry, no jaundice/rashes. NEUROMUSCULAR No lumbar or midline, no CVA, no paraspinal muscle spasm or tenderness. Moves all 4 extremities well, with full ROM and good CSM. REYES x4, CN II-XII grossly intact. No focal neurologic deficits. PSYCHIATRY Normal mood and affect, cooperative, no SI or HI or hallucinations. Results Labs 07/28/24 05:00 07/28/24 05:00 Labs: Short CBC 07/27/24 Range/Units 04:50 WBC 3.1 L (3.6-11.0) Thou/mm3 Hgb 9.2 L (12.0-16.0) g/dL Hct 27.4 L (36.0-46.0) % Plt Count 95 L (140-440) Thou/mm3 BMP 07/27/24 04:50 Sodium 141 Potassium 3.8 Chloride 101 Carbon Dioxide 28.2 BUN 83 H Creatinine 2.0 H Glucose 102 Calcium 9.6 Liver Function 07/27/24 Range/Units 04:50 Total Bilirubin 2.3 H (0.3-1.2) mg/dL AST 17 (0-34) U/L ALT 7 L (10-49) U/L Alkaline Phosphatase 202 H (46-116) U/L Albumin 3.5 (3.4-4.8) gm/dL Quality Measures Quality Measures none Advance care planning discussed with:: patient Medications Home Medications and Allergies Home Medications ?Medication ?Instructions ?Recorded ?Confirmed ?Type lovastatin 20 mg tablet 20 mg PO HS 06/21/17 07/25/24 History pantoprazole 40 mg tablet,delayed 40 mg PO QDAY 06/21/17 07/25/24 History release fluticasone propionate 50 1 spray intranasal QDAY 04/30/22 04/30/22 History mcg/actuation nasal spray,suspension carvedilol 6.25 mg tablet 6.25 mg PO BID 07/25/24 07/25/24 History cyanocobalamin (vitamin B-12) 500 500 mcg PO QDAY 07/25/24 07/25/24 History mcg tablet (Vitamin B-12) digoxin 125 mcg (0.125 mg) tablet 0.125 mg PO DAILY 07/25/24 07/25/24 History ferrous sulfate 325 mg (65 mg 325 mg PO BID 07/25/24 07/25/24 History iron) tablet furosemide 20 mg tablet 20 mg PO BID 07/25/24 07/25/24 History metolazone 5 mg tablet 5 mg PO DAILY 07/25/24 07/25/24 History potassium chloride 10 mEq 10 meq PO DAILY 07/25/24 07/25/24 History tablet,extended release Allergies Allergy/AdvReac Type Severity Reaction Status Date / Time aspirin Allergy Severe SWELLING Verified 07/24/24 14:26 TO LIPS chlorpheniramine Allergy Severe UNKNOWN Verified 07/24/24 14:26 PER PT diphenhydramine Allergy Severe SWELLING Verified 07/24/24 14:26 TO LIPS guaifenesin Allergy Severe UNKNOWN Verified 07/24/24 14:26 phenylpropanolamine Allergy Severe SWELLING Verified 07/24/24 14:26 TO LIPS Salicylates Allergy Severe SWELLING Verified 07/24/24 14:26 TO LIPS Visit Medications Acetaminophen (Acetaminophen 325 Mg Tablet) 650 mg PO Q6H PRN PRN Reason: Fever >101.5 Stop: 08/23/24 21:42 Acetaminophen (Acetaminophen 325 Mg Tablet) 650 mg PO Q6H PRN PRN Reason: PAIN SCALE 1-3 (mild Stop: 08/23/24 21:42 Atorvastatin Calcium (Atorvastatin Calcium 20 Mg Tablet) 40 mg PO HS SANJEEV Stop: 08/24/24 20:59 Last Admin: 07/26/24 21:43 Dose: 40 mg Bumetanide (Bumetanide Inj 0.25 Mg/Ml Vial 4 Ml) 2 mg IVP TID SANJEEV Stop: 08/25/24 07:59 Last Admin: 07/27/24 13:51 Dose: 2 mg Carvedilol (Carvedilol 3.125 Mg Tablet) 6.25 mg PO BID SANJEEV Stop: 08/24/24 08:59 Last Admin: 07/27/24 08:40 Dose: 6.25 mg Dextrose (Dextrose 50%-Water Inj 50 Ml Syringe) 25 ml IV Q15MIN PRN PRN Reason: BG 50-70 responsive npo pt Stop: 08/23/24 21:52 Dextrose (Dextrose 50%-Water Inj 50 Ml Syringe) 50 ml IV Q15MIN PRN PRN Reason: BG <50 OR BG <70 & pt unresponsive Stop: 08/23/24 21:52 Glucagon (Glucagon Inj 1 Mg Vial) 1 mg IM Q15MIN PRN PRN Reason: BG <70, and no IV access Heparin Sodium (Porcine) (Heparin Sod Inj 5000 Unit/Ml Vial) 5,000 unit SC Q8HR SANJEEV Stop: 08/07/24 21:59 Last Admin: 07/27/24 13:51 Dose: 5,000 unit Insulin Human Lispro (Insulin Lispro (Admelog) 1 Unit/0.01 Ml Unit) 0 unit SC AC SANJEEV; Protocol Stop: 08/24/24 07:29 Last Admin: 07/27/24 12:01 Dose: Not Given Ondansetron HCl (Ondansetron Inj 2 Mg/Ml Inj 2 Ml) 4 mg IV Q6H PRN; Protocol PRN Reason: NAUSEA OR VOMITING Stop: 08/23/24 21:42 Spironolactone (Spironolactone 25 Mg Tablet) 25 mg PO HS SANJEEV Stop: 08/23/24 21:49 Last Admin: 07/26/24 21:44 Dose: 25 mg Discontinued Medications Bumetanide (Bumetanide Inj 0.25 Mg/Ml Vial 4 Ml) 1 mg IVP X1 ONE Stop: 07/24/24 20:39 Last Admin: 07/24/24 21:05 Dose: 1 mg Bumetanide 10 mg/ IV (Miscellaneous Supplies) 40 mls @ 2 mls/hr IV .Q20H SANJEEV Stop: 07/25/24 16:37 Last Admin: 07/24/24 21:04 Dose: 0.5 mg/hr, 2 mls/hr Potassium Chloride (Potassium Chloride 20 Meq Tabcr) 40 meq PO X1 ONE Stop: 07/26/24 08:03 Last Admin: 07/26/24 09:16 Dose: 40 meq Assessment & Plan Plan In summary: 84-year-old female with PMHx of HTN, T2DM, HLD, anemia, hepatocellular disease, s/p pacemaker presenting to ED with worsening lower extremity edema. She was initially on BUMEX drip which was transitioned to 2 mg TID, total urine output of 2000. Nephrology was consulted for BLAKE and concern for decreased urine output. BLAKE on CKD stage IIIb Prerenal BLAKE in settings of third spacing vs. progression of CKD. Hx of CHF and cirrhosis, and diabetes. Likely oliguric at baseline as she is on home LASIX 20 mg BID and METOLAZONE 5 mg daily. Presenting with worsening lower extremity edema over the last few weeks. Reports no decrease in urine output since. Denies any urinary symptoms Admission CR 2.1 (baseline 1.5), EGFR 24 (baseline 30s), BUN 83. Serum osmolarity 306 elevated, likely 2/2 elevated BUN. UA bland and negative for UTI. CXR showing vascular congestion, satting well on room air. Echocardiogram showed EF 55 to 60%, distal dysfunction type II, mod-severe MR & TR. Initially on BUMEX drip, transition to 2 mg TID. Total urine output 2000 cc since admission 2 days ago. Still has significant bilateral lower extremity edema on exam, lung exam is clear. Currently, CR 2.0, BUN 83, GFR 42. Less likely cardiorenal, no significant BNP elevation, high serum osmolarity, no hyponatremia. ? Continue fluid restriction ? Discontinue home METFORMIN and PANTOPRAZOLE on discharge ? Strict ODALIS's ? Agree with BUMEX 2 mg TID ? Renally dose meds, avoid overdiuresis and NEPHROTOXINS ? Daily CMP Heart failure Liver cirrhosis Hyperbilirubinemia T2DM Essential hypertension HLD ? Managed by primary team. Thank you for the opportunity to participate in the patient's care. Case was discussed with attending, Dr. Tobar. Chris Abel, DO PGYI Attending Provider Attestation/Addendum Patient seen and examined with resident physician Dr. Perez. Note reviewed, agree with findings and recommendations. Patient with BLAKE in the setting of her significant anasarca. Agree with continuing on diuretics with close monitoring of renal function. If patient becomes diuretic resistant/dependent might need ultrafiltration. Thank you Amauri for allowing me to participate in the care of Ms. Franks
--- NOTE | 2024-07-27 15:59 | PC.SS ---
SS follow up note; Cardiology evaluation and Nephrology consult pending, patient will return home when medically cleared.
[2024-07-27] MEDS: INSULIN LISPRO (AdmeLOG) 1 UNIT/0.01 ML UNIT SC (17:02)
--- NOTE | 2024-07-27 18:44 | PC.NURSE ---
Dr. Evans in to see patient.
--- NOTE | 2024-07-27 19:37 | ESPR_ITS ---
<Statement entered by Juan Matias MD - 07/28/24 09:37> Senior Resident Attestation: I supervised/discussed management plan with human resources intern physician Dr. Houser, and was involved in the care of this patient. I personally saw and examined the patient and discussed the assessment and plan with the entire medicine team, including my attending. I agree with the assessment and plan as documented. Patient's care was discussed with attending physician, Dr. Nelson. Juan Matias MD PGY-2. Documentation for date of: 07/27/24 Subjective Subjective Interval history: Patient is seen and examined at bedside No acute overnight events. Denies any other complaints Vitals are stable. On physical examination, noted significant improvement in lower extremity edema Urine output is approximately -1300 mL since last 24 hours Will continue diuresis for now, Bumex 2 Mg IV 3 times daily Cardiology is consulted in view of pulmonary hypertension -to rule out primary Patient's condition is explained to the family at the bedside Exam Vital Signs Temp Pulse Resp BP Pulse Ox O2 Del Method O2 Flow Rate 98.4 F 77 18 121/68 95 Room Air 1 07/27/24 16:00 07/27/24 16:00 07/27/24 16:00 07/27/24 16:00 07/27/24 16:00 07/27/24 16:00 07/27/24 04:00 Narrative Exam General: Awake. lying comfortably on the bed HEENT: Normocephalic, atraumatic, mucous membranes moist. Heart: Regular rate and rhythm, pansystolic murmur heard in mitral and tricuspid area. Pacemaker noted Lungs: Clear to auscultation with no wheezing or crackles. Abdomen: Soft, moderately distended, nontender, positive bowel sounds. ?No guarding or rebound tenderness. Neurologic: Alert and oriented x3, no gross neurological deficit, and patient able to move all 4 extremities. Extremities: Bilateral lower extremity edema extending up to the upper abdomen Skin: No rash or ecchymoses. Objective Labs 07/28/24 05:00 07/28/24 05:00 Labs: Laboratory Results - last 24 hr 07/27/24 04:50 WBC 3.1 L RBC 2.75 L Hgb 9.2 L Hct 27.4 L MCV 100 MCH 33.5 MCHC 33.6 RDW Std Deviation 54.4 H Plt Count 95 L Neut % (Auto) 58 Lymph % (Auto) 23 Finney % (Auto) 15 H Eos % (Auto) 3 Baso % (Auto) 1 Neut # (Auto) 1.8 Lymph # (Auto) 0.7 L Finney # (Auto) 0.5 Eos # (Auto) 0.1 Baso # (Auto) 0.0 Immature Gran # (Auto) 0.01 H Absolute Nucleated RBC 0.00 Immature Gran % 0 Nucleated RBC % 0 Sodium 141 Potassium 3.8 Chloride 101 Carbon Dioxide 28.2 Anion Gap 12 BUN 83 H Creatinine 2.0 H Estim Creat Clear Calc 20.9 L eGFR 24 L BUN/Creatinine Ratio 42 H Glucose 102 Calculated Osmolality 306 H Calcium 9.6 Corrected Calcium 10.0 Phosphorus 3.5 Magnesium 1.8 Total Bilirubin 2.3 H AST 17 ALT 7 L Alkaline Phosphatase 202 H Total Protein 6.5 Albumin 3.5 Globulin 3.0 Albumin/Globulin Ratio 1.2 Quality Measures Quality Measures none Advance care planning discussed with:: patient and child Assessment & Plan Assessment Current Active Medications: Generic Name Dose Route Start Last Admin Trade Name Freq PRN Reason Stop Dose Admin Acetaminophen 650 mg 07/24/24 21:43 Acetaminophen 325 Mg Tablet PO 08/23/24 21:42 Q6H PRN Fever >101.5 Acetaminophen 650 mg 07/24/24 21:43 Acetaminophen 325 Mg Tablet PO 08/23/24 21:42 Q6H PRN PAIN SCALE 1-3 (mild Atorvastatin Calcium 40 mg 07/25/24 21:00 07/26/24 21:43 Atorvastatin Calcium 20 Mg Tablet PO 08/24/24 20:59 40 mg HS SANJEEV Administration Bumetanide 2 mg 07/26/24 08:00 07/27/24 13:51 Bumetanide Inj 0.25 Mg/Ml Vial 4 Ml IVP 08/25/24 07:59 2 mg TID SANJEEV Administration Carvedilol 6.25 mg 07/25/24 09:00 07/27/24 08:40 Carvedilol 3.125 Mg Tablet PO 08/24/24 08:59 6.25 mg BID SANJEEV Administration Dextrose 25 ml 07/24/24 21:53 Dextrose 50%-Water Inj 50 Ml Syringe IV 08/23/24 21:52 Q15MIN PRN BG 50-70 responsive npo pt Dextrose 50 ml 07/24/24 21:53 Dextrose 50%-Water Inj 50 Ml Syringe IV 08/23/24 21:52 Q15MIN PRN BG <50 OR BG <70 & pt unresponsive Glucagon 1 mg 07/24/24 21:53 Glucagon Inj 1 Mg Vial IM Q15MIN PRN BG <70, and no IV access Heparin Sodium (Porcine) 5,000 unit 07/24/24 22:00 07/27/24 13:51 Heparin Sod Inj 5000 Unit/Ml Vial SC 08/07/24 21:59 5,000 unit Q8HR SANJEEV Administration Insulin Human Lispro 0 unit 07/25/24 07:30 07/27/24 17:02 Insulin Lispro (Admelog) 1 Unit/0.01 Ml Unit SC 08/24/24 07:29 1 unit AC SANJEEV Administration Protocol Ondansetron HCl 4 mg 07/24/24 21:43 Ondansetron Inj 2 Mg/Ml Inj 2 Ml IV 08/23/24 21:42 Q6H PRN NAUSEA OR VOMITING Protocol Spironolactone 25 mg 07/24/24 21:50 07/26/24 21:44 Spironolactone 25 Mg Tablet PO 08/23/24 21:49 25 mg HS SANJEEV Administration Plan A 84-year-old female with significant past medical history of hypertension, diabetes mellitus type 2, hyperlipidemia, anemia, hepatocellular disease, s/p pacemaker placement x 2 presented to ED on 07/24/2024 with chief complaint of worsening lower extremity edema and admitted for anasarca, likely secondary to heart failure #Anasarca #In setting of heart failure and liver cirrhosis -Patient had history of pacemaker implant, taking Lasix at home -Patient had history of bilateral lower extremity edema, following Dr. Langston and using furosemide 20 Mg p.o. twice daily, but recently since 3 weeks noted worsening of lower extremity edema -Denies shortness of breath, orthopnea -On physical examination, pansystolic murmur heard at mitral and tricuspid area. Lower extremity swelling extending up to the upper abdomen -Platelet 103, INR 1.2, total bilirubin 2.8, BNP 270, AST/ALT 19/11. -CT abdomen revealed mild CHF, cirrhosis, cholelithiasis, mild to moderate ascites, anasarca, and a dilated IVC consistent with heart failure, no bowel obstruction - Echocardiogram - LVEF 55-60%. Diastolic Dysfunction II. RVSP elevated 65 mmHg. LA & RA severely dilated. Mod-Severe MR & TR. AOV sclerosis. 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 # Hyperbilirubinemia, resolving -Total bilirubin at the time of admission is 2.8 --> 4/10, 2.4, AST and ALT within normal limits -Albumin and total proteins are within normal limits, INR is 1.2 -less likely primary hepatocellular disease -Hepatitis panel came back negative Plan -Will continue diuresis for now -Will monitor liver functions #BLAKE on CKD stage IIIb versus CKD stage IV Likely cardiorenal syndrome/hepatorenal syndrome -Baseline creatinine is 1.5 in 2022 -Creatinine at the time of admission is 2.1, 2 as of today Plan -Will continue diuresis -Avoid nephrotoxic medications and renally dose medications #Diabetes mellitus type 2 - Presented with blood sugar of 129, has been taking metformin at home -A1c is 6.2 -Started on sliding scale insulin AC -Hypoglycemia protocol in place #Essential hypertension Presented with blood pressure 139/70 - Started on home carvedilol 6.25 Mg twice daily #Hyperlipidemia - Patient is taking lovastatin 20 Mg daily - Started on atorvastatin 40 Mg daily Hospital Maintenance: Dispo: medtele DVT ppx: Heparin GI ppx: not needed Diet: low sodium IV lines:peripheral Code status: Full Patient plan of care was discussed with the attending physician, Dr. Nelson and senior resident Dr. Polly Houser, PGY1 Attending Provider Attestation/Addendum I attest that I was physically present for the evaluation, physical examination, lab and imaging review of the patient with the residents. I discussed the case with the residents and agree with the findings and plans of care as documented above. At bedside, patient states she is feeling well and denies any complaints. Continues to have anasarca but improving compared to yesterday. Had a negative balance of about 1300 cc in last 24 hours. On echocardiography, patient was found to have pulmonary artery hypertension, diastolic dysfunction, severely dilated left and right atrium, moderate to severe mitral and tricuspid regurgitation, aortic valve sclerosis and dilated IVC we will obtain cardiology consult. Patient on Bumex 2 mg IV 3 times daily along with Aldactone 25 mg at night. Continues to be on fluid restriction and low-sodium diet. Liver function has been stable, GI following, appreciate recommendations. Patient's kidney function did not improve despite diuresis, possibility for CKD progression remains high, we will obtain nephrology consult. We will continue with insulin regimen for diabetes, Her home medications hypertension and hyperlipidemia. PT recommended SNF or home health for physical therapy. Amauri Nelson MD
--- NOTE | 2024-07-27 19:43 | PD.IMPROG ---
Documentation for date of: 07/27/24 Subjective Subjective Interval history: Patient evaluated on Bumex nephrology on board Exam Vital Signs Temp Pulse Resp BP Pulse Ox O2 Del Method O2 Flow Rate 98.4 F 77 18 121/68 95 Room Air 1 07/27/24 16:00 07/27/24 16:00 07/27/24 16:00 07/27/24 16:00 07/27/24 16:00 07/27/24 16:00 07/27/24 04:00 Objective Labs 07/27/24 04:50 07/27/24 04:50 Labs: Laboratory Results - last 24 hr 07/27/24 04:50 WBC 3.1 L RBC 2.75 L Hgb 9.2 L Hct 27.4 L MCV 100 MCH 33.5 MCHC 33.6 RDW Std Deviation 54.4 H Plt Count 95 L Neut % (Auto) 58 Lymph % (Auto) 23 Nolan % (Auto) 15 H Eos % (Auto) 3 Baso % (Auto) 1 Neut # (Auto) 1.8 Lymph # (Auto) 0.7 L Nolan # (Auto) 0.5 Eos # (Auto) 0.1 Baso # (Auto) 0.0 Immature Gran # (Auto) 0.01 H Absolute Nucleated RBC 0.00 Immature Gran % 0 Nucleated RBC % 0 Sodium 141 Potassium 3.8 Chloride 101 Carbon Dioxide 28.2 Anion Gap 12 BUN 83 H Creatinine 2.0 H Estim Creat Clear Calc 20.9 L eGFR 24 L BUN/Creatinine Ratio 42 H Glucose 102 Calculated Osmolality 306 H Calcium 9.6 Corrected Calcium 10.0 Phosphorus 3.5 Magnesium 1.8 Total Bilirubin 2.3 H AST 17 ALT 7 L Alkaline Phosphatase 202 H Total Protein 6.5 Albumin 3.5 Globulin 3.0 Albumin/Globulin Ratio 1.2 Impressions Impression: Anasarca Pedal edema Continue Bumex and current diuretics Assessment & Plan A&P Narrative # Anasarca most likely due to underlying cirrhotic liver disease of uncertain etiology 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 fluid restriction in 24 hours Spironolactone 25 mg p.o. twice daily Complete workup ordered for the chronic active hepatitis Will follow the patient # Cholelithiasis asymptomatic Other medical problems include # CHF # Essential hypertension # Diabetes mellitus type 2 # Cardiac arrhythmias requiring pacemaker placement Thank you very much for the opportunity to participate in the care of this patient Time Spent With Patient Time: Total time spent is greater than 50% in coordination of care (as documented) at patient's floor/unit and/or counseling patient:
[2024-07-27] MEDS: SPIRONOLACTONE 25 MG TABLET PO (21:13)
[2024-07-27] MEDS: ATORVASTATIN CALCIUM 20 MG TABLET 40 MG PO (21:13)
[2024-07-28] VITALS (11 sets, daily range): BP systolic 107–133; BP diastolic 54–69; PULSE 61–99; RESP 17–21; TEMP 36.2–36.9; O2SAT 94–98
[2024-07-28] MEDS: HEPARIN SOD INJ 5000 UNIT/ML VIAL SC ×3 (05:44→23:23)
[2024-07-28] MEDS: BUMETANIDE INJ 0.25 MG/ML VIAL 4 ML 2 MG IVP (05:45)
[2024-07-28 05:50] LABS: Basophils % (Auto) 1 % (0-2.5); Eosinophils # (Auto) 0.2 Thou/mm3 (0.0-0.5); Eosinophils % (Auto) 4 % (0-10); Hematocrit 27.9 % (36.0-46.0); Hemoglobin 9.3 g/dL (12.0-16.0); Immature Granulocytes % (Auto) 0 % (0-0); Lymphocytes # (Auto) 0.8 Thou/mm3 (1.0-4.8); Lymphocytes % (Auto) 20 % (10-50); Mean Corpuscular HGB Conc 33.3 g/dl (31.0-37.0); Mean Corpuscular Hemoglobin 33.5 pg (25.0-35.0); Mean Corpuscular Volume 100 fL (80-100); Monocytes # (Auto) 0.6 Thou/mm3 (0.0-0.8); Monocytes % (Auto) 15 % (0-12); Neutrophils # (Auto) 2.4 Thou/mm3 (1.8-7.7); Neutrophils % (Auto) 60 % (37-80); Nucleated Red Blood Cell % 0 /100 WBC (0); Platelet Count 92 Thou/mm3 (140-440); Red Blood Count 2.78 Miln/mm3 (4.00-5.20)
[2024-07-28 06:22] LABS: Alanine Aminotransferase 8 U/L (10-49); Albumin, Serum 3.5 gm/dL (3.4-4.8); Albumin/Globulin Ratio 1.2 (1.2-2.2); Alkaline Phosphatase 217 U/L (46-116); Anion Gap 10 (7-16); Aspartate Amino Transferase 16 U/L (0-34); BUN/Creatinine Ratio 42 Ratio (12-20); Bilirubin,Total 2.4 mg/dL (0.3-1.2); Blood Urea Nitrogen 84 mg/dL (9-23); Calcium 9.2 mg/dL (8.3-10.6); Calcium (Corrected) 9.6 mg/dL (8.5-10.1); Carbon Dioxide 31.4 mMol/L (20.0-31.0); Chloride 100 mMol/L (98-107); Estimated Creatinine Clearance 20.8 mL/min (>60); Globulin 2.9 gm/dL (2.3-3.5); Glucose 104 mg/dL (74-106); Osmolality,Calculated 306 (275-295); Potassium 3.6 mMol/L (3.4-5.1); Sodium 141 mMol/L (136-145); Total Protein 6.4 gm/dL (5.7-8.2); eGFR 24 See Note
[2024-07-28] MEDS: carVEDILOL 3.125 MG TABLET 6.25 MG PO ×2 (08:23→23:20)
[2024-07-28] MEDS: INSULIN LISPRO (AdmeLOG) 1 UNIT/0.01 ML UNIT SC ×2 (14:03→18:17)
--- NOTE | 2024-07-28 15:14 | PD.RESPRO ---
Documentation for date of: 07/28/24 Subjective Subjective Interval history: Patient was seen and examined at bedside. She does not have any complaints today. No acute overnight events. Her lower extremities edema is improving. Her net output was -1340 cc. Her Bumex 2 mg 3 times daily was switched to once daily per nephrology and cardiology recommendations. Will continue current management and monitor patient. Exam Vital Signs Temp Pulse Resp BP Pulse Ox O2 Del Method O2 Flow Rate 97.2 F 68 17 118/64 98 Nasal Cannula 2 07/28/24 12:00 07/28/24 12:00 07/28/24 12:00 07/28/24 12:00 07/28/24 12:00 07/28/24 12:00 07/28/24 12:00 Narrative Exam Gen: Well-developed and well-nourished elderly female. HEENT: NCAT, PERRLA, EOMI, MMM, anicteric conjunctivae. CVS: normal S1 and S2. RRR. Systolic murmur heard in mitral area. Resp: CTA B/L. No rhonchi, rales, crackles or wheezing. Abd: soft, non-tender, mod distended. BS+ in all 4 quadrants. MSK: Good ROM in BUE & BLE. Severe pitting edema BLE, improving. Neuro: CN II-XII grossly intact. Strength 5/5 in BUE & BLE. Alert and oriented x3. Psych: appropriate mood and affect. Objective Labs 07/28/24 05:00 07/28/24 05:00 Labs: Laboratory Results - last 24 hr 07/28/24 05:00 WBC 4.0 RBC 2.78 L Hgb 9.3 L Hct 27.9 L MCV 100 MCH 33.5 MCHC 33.3 RDW Std Deviation 55.0 H Plt Count 92 L Neut % (Auto) 60 Lymph % (Auto) 20 [place] % (Auto) 15 H Eos % (Auto) 4 Baso % (Auto) 1 Neut # (Auto) 2.4 Lymph # (Auto) 0.8 L [place] # (Auto) 0.6 Eos # (Auto) 0.2 Baso # (Auto) 0.0 Immature Gran # (Auto) 0.00 Absolute Nucleated RBC 0.00 Immature Gran % 0 Nucleated RBC % 0 Sodium 141 Potassium 3.6 Chloride 100 Carbon Dioxide 31.4 H Anion Gap 10 BUN 84 H Creatinine 2.0 H Estim Creat Clear Calc 20.8 L eGFR 24 L BUN/Creatinine Ratio 42 H Glucose 104 Calculated Osmolality 306 H Calcium 9.2 Corrected Calcium 9.6 Total Bilirubin 2.4 H AST 16 ALT 8 L Alkaline Phosphatase 217 H Total Protein 6.4 Albumin 3.5 Globulin 2.9 Albumin/Globulin Ratio 1.2 Quality Measures Quality Measures VTE prophylaxis Advance care planning discussed with:: patient and child Assessment & Plan Assessment Current Active Medications: Generic Name Dose Route Start Last Admin Trade Name Freq PRN Reason Stop Dose Admin Acetaminophen 650 mg 07/24/24 21:43 Acetaminophen 325 Mg Tablet PO 08/23/24 21:42 Q6H PRN Fever >101.5 Acetaminophen 650 mg 07/24/24 21:43 Acetaminophen 325 Mg Tablet PO 08/23/24 21:42 Q6H PRN PAIN SCALE 1-3 (mild Atorvastatin Calcium 40 mg 07/25/24 21:00 07/27/24 21:13 Atorvastatin Calcium 20 Mg Tablet PO 08/24/24 20:59 40 mg HS SANJEEV Administration Bumetanide 2 mg 07/29/24 09:00 Bumetanide Inj 0.25 Mg/Ml Vial 4 Ml IVP 08/28/24 08:59 QDAY SANJEEV Carvedilol 6.25 mg 07/25/24 09:00 07/28/24 08:23 Carvedilol 3.125 Mg Tablet PO 08/24/24 08:59 6.25 mg BID SANJEEV Administration Dextrose 25 ml 07/24/24 21:53 Dextrose 50%-Water Inj 50 Ml Syringe IV 08/23/24 21:52 Q15MIN PRN BG 50-70 responsive npo pt Dextrose 50 ml 07/24/24 21:53 Dextrose 50%-Water Inj 50 Ml Syringe IV 08/23/24 21:52 Q15MIN PRN BG <50 OR BG <70 & pt unresponsive Glucagon 1 mg 07/24/24 21:53 Glucagon Inj 1 Mg Vial IM Q15MIN PRN BG <70, and no IV access Heparin Sodium (Porcine) 5,000 unit 07/24/24 22:00 07/28/24 14:03 Heparin Sod Inj 5000 Unit/Ml Vial SC 08/07/24 21:59 5,000 unit Q8HR SANJEEV Administration Insulin Human Lispro 0 unit 07/25/24 07:30 07/28/24 14:03 Insulin Lispro (Admelog) 1 Unit/0.01 Ml Unit SC 08/24/24 07:29 1 unit AC SANJEEV Administration Protocol Ondansetron HCl 4 mg 07/24/24 21:43 Ondansetron Inj 2 Mg/Ml Inj 2 Ml IV 08/23/24 21:42 Q6H PRN NAUSEA OR VOMITING Protocol Spironolactone 25 mg 07/24/24 21:50 07/27/24 21:13 Spironolactone 25 Mg Tablet PO 08/23/24 21:49 25 mg HS SANJEEV Administration Plan A 84-year-old female with significant past medical history of hypertension, diabetes mellitus type 2, hyperlipidemia, anemia, hepatocellular disease, s/p pacemaker placement x 2 presented to ED on 07/24/2024 with chief complaint of worsening lower extremity edema and admitted for anasarca, likely secondary to heart failure #Anasarca. #In setting of heart failure and liver cirrhosis. -Patient had history of pacemaker implant, taking Lasix at home -Patient had history of bilateral lower extremity edema, following Dr. Langston and using furosemide 20 Mg p.o. twice daily, but recently since 3 weeks noted worsening of lower extremity edema -Denies shortness of breath, orthopnea -On physical examination, pansystolic murmur heard at mitral and tricuspid area. Lower extremity swelling extending up to the upper abdomen -Platelet 103, INR 1.2, total bilirubin 2.8, BNP 270, AST/ALT 19/11. -CT abdomen revealed mild CHF, cirrhosis, cholelithiasis, mild to moderate ascites, anasarca, and a dilated IVC consistent with heart failure, no bowel obstruction - Echocardiogram - LVEF 55-60%. Diastolic Dysfunction II. RVSP elevated 65 mmHg. LA & RA severely dilated. Mod-Severe MR & TR. AOV sclerosis. Dilated IVC Plan: - Bumex 2mg IV QD. - Aldactone 25 Mg daily at night. - Strict ins and out with fluid restriction of 1200 cc/day. - On 2 g sodium diet. - Consulted cardiology to rule out primary pulmonary hypertension. 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 # Hyperbilirubinemia, resolving. -Total bilirubin at the time of admission is 2.8 --> 4/10, 2.4, AST and ALT within normal limits. -Albumin and total proteins are within normal limits, INR is 1.2 -less likely primary hepatocellular disease. -Hepatitis panel came back negative. Plan: -Will continue diuresis for now. -Will monitor liver functions. #BLAKE on CKD stage IIIb versus CKD stage IV. Likely cardiorenal syndrome/hepatorenal syn.drome -Baseline creatinine is 1.5 in 2022. -Creatinine at the time of admission is 2.1, 2 as of today. Plan: -Will continue diuresis -Avoid nephrotoxic medications and renally dose medications #Diabetes mellitus type 2. - Presented with blood sugar of 129, has been taking metformin at home -A1c is 6.2 Plan: -Started on sliding scale insulin AC -Hypoglycemia protocol in place #Essential hypertension Presented with blood pressure 139/70 Plan: - Started on home carvedilol 6.25 Mg twice daily #Hyperlipidemia - Patient is taking lovastatin 20 Mg daily Plan: - Started on atorvastatin 40 Mg daily Hospital Maintenance: Dispo: medtele DVT ppx: Heparin GI ppx: not needed Diet: low sodium IV lines:peripheral Code status: Full Patient plan of care was discussed with the attending physician, Dr. Nelson. Juan Matias MD, PGY 2. Disclaimer: This note was dictated by speech recognition. Minor errors in social organization professor may be present due to voice recognition software. Attending Provider Attestation/Addendum I attest that I was physically present for the evaluation, physical examination, lab and imaging review of the patient with the residents. I discussed the case with the residents and agree with the findings and plans of care as documented above. At bedside, patient appears comfortable. States that she is feeling well and denies any new complaints. Saturating well on 2 L nasal cannula. Her lower limb extremity continue to improve but still has significant edema. Discussed with cardiology and nephrology, since her Bumex dosing to 2 mg daily. We will also continue with Aldactone 25 daily, Fluid restriction and low-sodium diet. Liver function continue to be stable. Patient's BUN/creatinine has stayed at 84/2.0 today, discussed with nephrology, recommended continuation of diuresis for now, appreciate recommendations. Family at bedside updated about patient's condition and further management plans. Daughter at bedside stated that she would like her mom to go to a SNF to continue with physical therapy as patient does not have care available 24/ at home. Amauri Nelson MD
--- NOTE | 2024-07-28 15:55 | ESPR_ITS ---
Documentation for date of: 07/28/24 Subjective Subjective Interval history: Ms. Franks is a 84-year-old female with PMHx of HTN, T2DM, HLD, anemia, hepatocellular disease, s/p pacemaker presenting to ED with worsening lower extremity edema. She has a known history of heart failure and cirrhosis. Home medications include LASIX 20 mg BID, METOLAZONE 5 mg, DIGOXIN, METFORMIN, CARVEDILOL, and statin. Reports taking her medications daily as scheduled, however has been having worsening lower extremity edema. Reports she is urinating as usual, no decrease of urinary volume or incontinence. Denies urinary symptoms such as dysuria or hematuria. Denies recent or active illness including headache, fever, fall, trauma, LOC, syncope, chest pain, shortness of breath, abdominal pain, N/V/D/C, or GI bleed. On presentation she was severely anasarcous. CXR showed mild/moderate CHF. Venous Doppler negative for lower extremity DVT bilaterally. CT CAP showed mild CHF, cirrhosis, cholelithiasis, mild ? moderate ascites, anasarca. EKG showed electronic atrial pacemaker, no acute ST changes. Echocardiogram showed EF 55 to 60%, distal dysfunction type II, mod-severe MR & TR. She came without CR 2.1 (baseline 1.5), EGFR 24 (baseline 30s), BUN 83. She was initially on BUMEX drip which was switched to BUMEX 2 mg TID. She had a total urine output of 2000, balance is -910. Other significant labs include serum osmolarity 306, TB 2.3, ALP 202, BNP 270, normal troponin. Hgb 9.3, WBC 3.0, PLT 96. UA is bland without UTI. Nephrology was consulted for management of BLAKE and concern for poor urine output. 07/28/2024 examined at bedside. Denies new symptoms or worsening of symptoms. Denies fever, chills, headaches, chest pain, sob, cough, GI or urinary symptoms. Persistent significant bilateral lower extremity edema on exam, 24H urine output 2.3 L, overall balance -1.1 L. Renal function change, CR 2.0, BUN 84, GFR 24, no electrolyte abnormalities. Agree with cardiology on BUMEX 2 mg daily and ALDACTONE 25 mg daily. Exam Vital Signs Temp Pulse Resp BP Pulse Ox O2 Del Method O2 Flow Rate 97.2 F 68 17 118/64 98 Nasal Cannula 2 07/28/24 12:00 07/28/24 12:00 07/28/24 12:00 07/28/24 12:00 07/28/24 12:00 07/28/24 12:00 07/28/24 12:00 Narrative Exam GENERAL * Normal appearing elderly female, on room air, NAD HEENT * NCAT.?CHASE. Oral mucosa is moist. Patent Nares NECK * Supple, nontender, no thyromegaly, no meningismus, no JVD, no step offs CHEST * RRR, no m/g/r * CTAB, no w/r/r. Symmetrical chest rise. No intercostal subcostal retraction * Atraumatic, nontender, no crepitus, symmetrical expansion. ABDOMEN * Soft, flat, nontender. No guarding/rebound tenderness/masses. * Bowel sounds presents EXTREMITIES * Significant 3+ bilateral LE pitting edema, extending above the waistline. SKIN * Warm and dry, no jaundice/rashes. NEUROMUSCULAR * No lumbar or midline, no CVA, no paraspinal muscle spasm or tenderness. * Moves all 4 extremities well, with full ROM and good CSM. * REYES x4, CN II-XII grossly intact. * No focal neurologic deficits. PSYCHIATRY * Normal mood and affect, cooperative, no SI or HI or hallucinations. Objective Labs 07/29/24 08:57 07/29/24 08:57 Labs: Laboratory Results - last 24 hr 07/28/24 05:00 WBC 4.0 RBC 2.78 L Hgb 9.3 L Hct 27.9 L MCV 100 MCH 33.5 MCHC 33.3 RDW Std Deviation 55.0 H Plt Count 92 L Neut % (Auto) 60 Lymph % (Auto) 20 [place] % (Auto) 15 H Eos % (Auto) 4 Baso % (Auto) 1 Neut # (Auto) 2.4 Lymph # (Auto) 0.8 L [place] # (Auto) 0.6 Eos # (Auto) 0.2 Baso # (Auto) 0.0 Immature Gran # (Auto) 0.00 Absolute Nucleated RBC 0.00 Immature Gran % 0 Nucleated RBC % 0 Sodium 141 Potassium 3.6 Chloride 100 Carbon Dioxide 31.4 H Anion Gap 10 BUN 84 H Creatinine 2.0 H Estim Creat Clear Calc 20.8 L eGFR 24 L BUN/Creatinine Ratio 42 H Glucose 104 Calculated Osmolality 306 H Calcium 9.2 Corrected Calcium 9.6 Total Bilirubin 2.4 H AST 16 ALT 8 L Alkaline Phosphatase 217 H Total Protein 6.4 Albumin 3.5 Globulin 2.9 Albumin/Globulin Ratio 1.2 Quality Measures Quality Measures VTE prophylaxis Advance care planning discussed with:: patient and child Assessment & Plan Assessment Current Active Medications: Generic Name Dose Route Start Last Admin Trade Name Freq PRN Reason Stop Dose Admin Acetaminophen 650 mg 07/24/24 21:43 Acetaminophen 325 Mg Tablet PO 08/23/24 21:42 Q6H PRN Fever >101.5 Acetaminophen 650 mg 07/24/24 21:43 Acetaminophen 325 Mg Tablet PO 08/23/24 21:42 Q6H PRN PAIN SCALE 1-3 (mild Atorvastatin Calcium 40 mg 07/25/24 21:00 07/27/24 21:13 Atorvastatin Calcium 20 Mg Tablet PO 08/24/24 20:59 40 mg HS SANJEEV Administration Bumetanide 2 mg 07/29/24 09:00 Bumetanide Inj 0.25 Mg/Ml Vial 4 Ml IVP 08/28/24 08:59 QDAY SANJEEV Carvedilol 6.25 mg 07/25/24 09:00 07/28/24 08:23 Carvedilol 3.125 Mg Tablet PO 08/24/24 08:59 6.25 mg BID SANJEEV Administration Dextrose 25 ml 07/24/24 21:53 Dextrose 50%-Water Inj 50 Ml Syringe IV 08/23/24 21:52 Q15MIN PRN BG 50-70 responsive npo pt Dextrose 50 ml 07/24/24 21:53 Dextrose 50%-Water Inj 50 Ml Syringe IV 08/23/24 21:52 Q15MIN PRN BG <50 OR BG <70 & pt unresponsive Glucagon 1 mg 07/24/24 21:53 Glucagon Inj 1 Mg Vial IM Q15MIN PRN BG <70, and no IV access Heparin Sodium (Porcine) 5,000 unit 07/24/24 22:00 07/28/24 14:03 Heparin Sod Inj 5000 Unit/Ml Vial SC 08/07/24 21:59 5,000 unit Q8HR SANJEEV Administration Insulin Human Lispro 0 unit 07/25/24 07:30 07/28/24 14:03 Insulin Lispro (Admelog) 1 Unit/0.01 Ml Unit SC 08/24/24 07:29 1 unit AC SANJEEV Administration Protocol Ondansetron HCl 4 mg 07/24/24 21:43 Ondansetron Inj 2 Mg/Ml Inj 2 Ml IV 08/23/24 21:42 Q6H PRN NAUSEA OR VOMITING Protocol Spironolactone 25 mg 07/24/24 21:50 07/27/24 21:13 Spironolactone 25 Mg Tablet PO 08/23/24 21:49 25 mg HS SANJEEV Administration Plan In summary: 84-year-old female with PMHx of HTN, T2DM, HLD, anemia, hepatocellular disease, s/p pacemaker presenting to ED with worsening lower extremity edema. She was initially on BUMEX drip which was transitioned to 2 mg TID, total urine output of 1999. Nephrology was consulted for BLAKE and concern for decreased urine output. Renal function stable. Agree with cardiology on BUMEX 2 mg daily and ALDACTONE 25 mg daily. BLAKE on CKD stage IIIb Prerenal BLAKE in settings of third spacing vs. progression of CKD. Hx of CHF and cirrhosis, and diabetes. Likely oliguric at baseline as she is on home LASIX 20 mg BID and METOLAZONE 5 mg daily. Presenting with worsening lower extremity edema over the last few weeks. Reports no decrease in urine output since. Denies any urinary symptoms Admission CR 2.1 (baseline 1.5), EGFR 24 (baseline 30s), BUN 83. Serum osmolarity 306 elevated, likely 2/2 elevated BUN. UA bland and negative for UTI. CXR showing vascular congestion, satting well on room air. Echocardiogram showed EF 55 to 60%, distal dysfunction type II, mod-severe MR & TR. Initially on BUMEX drip, transition to 2 mg TID. Persistent significant bilateral lower extremity edema on exam, 24H urine output 2.3 L, overall balance -1.1 L. Renal function change, CR 2.0, BUN 84, GFR 24, no electrolyte abnormalities. ? Discontinue home METFORMIN and PANTOPRAZOLE on discharge ? Strict ODALIS's ? Renally dose meds, avoid overdiuresis and NEPHROTOXINS ? Daily CMP ? Agree with cardiology on BUMEX 2 mg daily and ALDACTONE 25 mg daily. ? Continue fluid restriction Heart failure Liver cirrhosis Hyperbilirubinemia T2DM Essential hypertension HLD ? Managed by primary team. Thank you for the opportunity to participate in the patient's care. Case was discussed with attending, Dr. Tobar. Chris Abel DO PGYI Attending Provider Attestation/Addendum Patient seen and examined with resident physician Dr. Perez. Note reviewed, agree with findings and recommendations. Patient with BLAKE in the setting of her significant anasarca. Agree with continuing on diuretics with close monitoring of renal function. BUN and creatinine stabilized. Edema improving. 1 more day and possible discharge tomorrow on Bumex and Aldactone.
--- NOTE | 2024-07-28 17:32 | ESPR_ITS ---
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 Evaluated the patient agree with the treatment plan recommendation as pulmonary by Dr. Radha Kowalski MD, PGY 2 Documentation for date of: 07/28/24 Subjective Subjective Interval history: No acute events overnight.?Patient seen and examined at bedside this AM. Patient continues to have good urine output with 2.4 L out in the last 24 hours. Continues with bilateral?leg swelling but reduced since the admission. Labs and vitals were reviewed. 24-hour telemetry reviewed.?HR is maintained 70-80 paced rhythm. The patient was on 2L O2 today, but denies shortness of breath, chest pain, or palpitations. No further complaints at this time. Bumex reduced to 2 mg IV qday, Aldactone continue at 25 mg qday. Patient may be discharged on these doses, discontinue the home furosemide 20 mg PO BID and the metolazone 5 mg qday. Review of systems otherwise negative except what is mentioned above. Exam Vital Signs Temp Pulse Resp BP Pulse Ox O2 Del Method O2 Flow Rate 98.3 F 73 18 115/65 97 Room Air 2 07/28/24 16:00 07/28/24 16:00 07/28/24 16:07/28/24 16:07/28/24 16:07/28/24 16:07/28/24 12:00 Narrative Exam Physical Exam General: Awake and in no acute distress. Conversational and non-toxic appearing on room air. HEENT: Normocephalic, atraumatic, mucous membranes moist. Heart: Regular rate and rhythm, normal S1 and S2, 2/6 systolic murmur at the left sternal border. Lungs: Clear to auscultation with no wheezing or crackles. Abdomen: Soft, distended, mild ascites, nontender, positive bowel sounds. ?No guarding or rebound tenderness. Neurologic: Alert and oriented x3, no gross neurological deficit, and patient able to move all 4 extremities. Extremities: 4+ bilateral pitting lower extremity edema Skin: No rash or ecchymoses. Objective Labs 07/28/24 05:00 07/28/24 05:00 Labs: Laboratory Results - last 24 hr 07/28/24 05:00 WBC 4.0 RBC 2.78 L Hgb 9.3 L Hct 27.9 L MCV 100 MCH 33.5 MCHC 33.3 RDW Std Deviation 55.0 H Plt Count 92 L Neut % (Auto) 60 Lymph % (Auto) 20 [place] % (Auto) 15 H Eos % (Auto) 4 Baso % (Auto) 1 Neut # (Auto) 2.4 Lymph # (Auto) 0.8 L [place] # (Auto) 0.6 Eos # (Auto) 0.2 Baso # (Auto) 0.0 Immature Gran # (Auto) 0.00 Absolute Nucleated RBC 0.00 Immature Gran % 0 Nucleated RBC % 0 Sodium 141 Potassium 3.6 Chloride 100 Carbon Dioxide 31.4 H Anion Gap 10 BUN 84 H Creatinine 2.0 H Estim Creat Clear Calc 20.8 L eGFR 24 L BUN/Creatinine Ratio 42 H Glucose 104 Calculated Osmolality 306 H Calcium 9.2 Corrected Calcium 9.6 Total Bilirubin 2.4 H AST 16 ALT 8 L Alkaline Phosphatase 217 H Total Protein 6.4 Albumin 3.5 Globulin 2.9 Albumin/Globulin Ratio 1.2 Quality Measures Quality Measures VTE prophylaxis Advance care planning discussed with:: patient Assessment & Plan Assessment Current Active Medications: Generic Name Dose Route Start Last Admin Trade Name Ayushq PRN Reason Stop Dose Admin Acetaminophen 650 mg 07/24/24 21:43 Acetaminophen 325 Mg Tablet PO 08/23/24 21:42 Q6H PRN Fever >101.5 Acetaminophen 650 mg 07/24/24 21:43 Acetaminophen 325 Mg Tablet PO 08/23/24 21:42 Q6H PRN PAIN SCALE 1-3 (mild Atorvastatin Calcium 40 mg 07/25/24 21:00 07/27/24 21:13 Atorvastatin Calcium 20 Mg Tablet PO 08/24/24 20:59 40 mg HS SANJEEV Administration Bumetanide 2 mg 07/29/24 09:00 Bumetanide Inj 0.25 Mg/Ml Vial 4 Ml IVP 08/28/24 08:59 QDAY SANJEEV Carvedilol 6.25 mg 07/25/24 09:00 07/28/24 08:23 Carvedilol 3.125 Mg Tablet PO 08/24/24 08:59 6.25 mg BID SANJEEV Administration Dextrose 25 ml 07/24/24 21:53 Dextrose 50%-Water Inj 50 Ml Syringe IV 08/23/24 21:52 Q15MIN PRN BG 50-70 responsive npo pt Dextrose 50 ml 07/24/24 21:53 Dextrose 50%-Water Inj 50 Ml Syringe IV 08/23/24 21:52 Q15MIN PRN BG <50 OR BG <70 & pt unresponsive Glucagon 1 mg 07/24/24 21:53 Glucagon Inj 1 Mg Vial IM Q15MIN PRN BG <70, and no IV access Heparin Sodium (Porcine) 5,000 unit 07/24/24 22:00 07/28/24 14:03 Heparin Sod Inj 5000 Unit/Ml Vial SC 08/07/24 21:59 5,000 unit Q8HR SANJEEV Administration Insulin Human Lispro 0 unit 07/25/24 07:30 07/28/24 14:03 Insulin Lispro (Admelog) 1 Unit/0.01 Ml Unit SC 08/24/24 07:29 1 unit AC SANJEEV Administration Protocol Ondansetron HCl 4 mg 07/24/24 21:43 Ondansetron Inj 2 Mg/Ml Inj 2 Ml IV 08/23/24 21:42 Q6H PRN NAUSEA OR VOMITING Protocol Spironolactone 25 mg 07/24/24 21:50 07/27/24 21:13 Spironolactone 25 Mg Tablet PO 08/23/24 21:49 25 mg HS SANJEEV Administration Plan 84-year-old Tuvaluan-speaking female with past medical history of hypertension, type 2 diabetes, hyperlipidemia, CKD stage 3B, anemia, cirrhosis, s/p pacemaker placement x 2 who initially presented to ED on 07/24/2024 with 3 weeks of worsening lower extremity bilateral lower limb edema, subsequently admitted for further management of anasarca. Cardiology was consulted for further evaluation of CHF with preserved EF and possible pulmonary hypertension. 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 07/27/2024 Echo showed LVEF 55-60%. EF is preserved but there is diastolic dysfunction II due to stiffening of the ventricles. There are extremely large right and left atria and severe mitral and tricuspid regurgitation. Unfortunately surgical repair is not an option given restrictive cardiomyopathy and medical management alone is recommended with diuretic therapy. Due to the above patient has likely type 2 PAH. Prognosis for this patient is guarded and condition will likely progress over the next 3-5 years. Diagnosis was explained to the patient and her at bedside. 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 Evans. Thank you for allowing us to participate in the care of this patient. Christie Kowalski, PGY-2
--- NOTE | 2024-07-28 17:33 | PD.IMPROG ---
Documentation for date of: 07/28/24 Subjective Subjective Interval history: Patient evaluated agree with discharge planning no need for GI follow-up Patient can be followed by the PCP Exam Vital Signs Temp Pulse Resp BP Pulse Ox O2 Del Method O2 Flow Rate 98.3 F 73 18 115/65 97 Room Air 2 07/28/24 16:00 07/28/24 16:00 07/28/24 16:00 07/28/24 16:00 07/28/24 16:00 07/28/24 16:00 07/28/24 12:00 Objective Labs 07/28/24 05:00 07/28/24 05:00 Labs: Laboratory Results - last 24 hr 07/28/24 05:00 WBC 4.0 RBC 2.78 L Hgb 9.3 L Hct 27.9 L MCV 100 MCH 33.5 MCHC 33.3 RDW Std Deviation 55.0 H Plt Count 92 L Neut % (Auto) 60 Lymph % (Auto) 20 [place] % (Auto) 15 H Eos % (Auto) 4 Baso % (Auto) 1 Neut # (Auto) 2.4 Lymph # (Auto) 0.8 L [place] # (Auto) 0.6 Eos # (Auto) 0.2 Baso # (Auto) 0.0 Immature Gran # (Auto) 0.00 Absolute Nucleated RBC 0.00 Immature Gran % 0 Nucleated RBC % 0 Sodium 141 Potassium 3.6 Chloride 100 Carbon Dioxide 31.4 H Anion Gap 10 BUN 84 H Creatinine 2.0 H Estim Creat Clear Calc 20.8 L eGFR 24 L BUN/Creatinine Ratio 42 H Glucose 104 Calculated Osmolality 306 H Calcium 9.2 Corrected Calcium 9.6 Total Bilirubin 2.4 H AST 16 ALT 8 L Alkaline Phosphatase 217 H Total Protein 6.4 Albumin 3.5 Globulin 2.9 Albumin/Globulin Ratio 1.2 Impressions Impression: Anasarca improving pedal edema improved Okay to discharge patient to be followed by the PCP Assessment & Plan A&P Narrative # Anasarca most likely due to underlying cirrhotic liver disease of uncertain etiology 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 fluid restriction in 24 hours Spironolactone 25 mg p.o. twice daily Complete workup ordered for the chronic active hepatitis Will follow the patient # Cholelithiasis asymptomatic Other medical problems include # CHF # Essential hypertension # Diabetes mellitus type 2 # Cardiac arrhythmias requiring pacemaker placement Thank you very much for the opportunity to participate in the care of this patient Time Spent With Patient Time: Total time spent is greater than 50% in coordination of care (as documented) at patient's floor/unit and/or counseling patient:
[2024-07-28] MEDS: ATORVASTATIN CALCIUM 20 MG TABLET 40 MG PO (23:20)
[2024-07-28] MEDS: SPIRONOLACTONE 25 MG TABLET PO (23:21)
[2024-07-29] VITALS (11 sets, daily range): BP systolic 99–117; BP diastolic 50–65; PULSE 73–93; RESP 17–24; TEMP 36.3–36.8; O2SAT 95–97
[2024-07-29] MEDS: HEPARIN SOD INJ 5000 UNIT/ML VIAL SC ×2 (05:58→14:24)
[2024-07-29] MEDS: BUMETANIDE INJ 0.25 MG/ML VIAL 4 ML 2 MG IVP (08:44)
[2024-07-29] MEDS: carVEDILOL 3.125 MG TABLET 6.25 MG PO ×2 (08:44→21:14)
[2024-07-29 09:36] LABS: Basophils % (Auto) 1 % (0-2.5); Eosinophils # (Auto) 0.1 Thou/mm3 (0.0-0.5); Eosinophils % (Auto) 3 % (0-10); Hematocrit 27.8 % (36.0-46.0); Hemoglobin 9.3 g/dL (12.0-16.0); Immature Granulocytes % (Auto) 0 % (0-0); Lymphocytes # (Auto) 0.7 Thou/mm3 (1.0-4.8); Lymphocytes % (Auto) 18 % (10-50); Mean Corpuscular HGB Conc 33.5 g/dl (31.0-37.0); Mean Corpuscular Hemoglobin 34.3 pg (25.0-35.0); Mean Corpuscular Volume 103 fL (80-100); Monocytes # (Auto) 0.5 Thou/mm3 (0.0-0.8); Monocytes % (Auto) 14 % (0-12); Neutrophils # (Auto) 2.5 Thou/mm3 (1.8-7.7); Neutrophils % (Auto) 64 % (37-80); Nucleated Red Blood Cell % 0 /100 WBC (0); Platelet Count 90 Thou/mm3 (140-440); RDW Standard Deviation 57.4 fL (36.4-46.3); Red Blood Count 2.71 Miln/mm3 (4.00-5.20); White Blood Count 3.9 Thou/mm3 (3.6-11.0)
--- NOTE | 2024-07-29 10:01 | ESPR_ITS ---
Documentation for date of: 07/29/24 Subjective Subjective Interval history: Ms. Franks is a 84-year-old female with PMHx of HTN, T2DM, HLD, anemia, hepatocellular disease, s/p pacemaker presenting to ED with worsening lower extremity edema. She has a known history of heart failure and cirrhosis. Home medications include LASIX 20 mg BID, METOLAZONE 5 mg, DIGOXIN, METFORMIN, CARVEDILOL, and statin. Reports taking her medications daily as scheduled, however has been having worsening lower extremity edema. Reports she is urinating as usual, no decrease of urinary volume or incontinence. Denies urinary symptoms such as dysuria or hematuria. Denies recent or active illness including headache, fever, fall, trauma, LOC, syncope, chest pain, shortness of breath, abdominal pain, N/V/D/C, or GI bleed. On presentation she was severely anasarcous. CXR showed mild/moderate CHF. Venous Doppler negative for lower extremity DVT bilaterally. CT CAP showed mild CHF, cirrhosis, cholelithiasis, mild ? moderate ascites, anasarca. EKG showed electronic atrial pacemaker, no acute ST changes. Echocardiogram showed EF 55 to 60%, distal dysfunction type II, mod-severe MR & TR. She came without CR 2.1 (baseline 1.5), EGFR 24 (baseline 30s), BUN 83. She was initially on BUMEX drip which was switched to BUMEX 2 mg TID. She had a total urine output of 2000, balance is -910. Other significant labs include serum osmolarity 306, TB 2.3, ALP 202, BNP 270, normal troponin. Hgb 9.3, WBC 3.0, PLT 96. UA is bland without UTI. Nephrology was consulted for management of BLKAE and concern for poor urine output. 07/28/2024 examined at bedside. Denies new symptoms or worsening of symptoms. Denies fever, chills, headaches, chest pain, sob, cough, GI or urinary symptoms. Persistent significant bilateral lower extremity edema on exam, 24H urine output 2.3 L, overall balance -1.1 L. Renal function change, CR 2.0, BUN 84, GFR 24, no electrolyte abnormalities. Agree with cardiology on BUMEX 2 mg daily and ALDACTONE 25 mg daily. 07/29/2024 patient currently seen in medical floor. at bedside. He is concerned that she is significantly weakened and requesting for her to go to rehab. Blood pressure 112/63, heart rate 78, blood sugar 156. Hemoglobin 9.3, platelets 90. Sodium 140, potassium 3.8, BUN 86, creatinine 2, glucose 139,Venous Doppler ultrasound showed no DVT in both legs. Review of Systems Review of Systems Narrative Review of Systems: CONSTITUTIONAL: Patient denies any fever, chills. HEENT: Denies any visual disturbances or hearing problems. CARDIOVASCULAR: Patient denies any chest pain, shortness of breath. ++ swelling in the lower extremities. PULMONARY: Patient denies any shortness of breath, cough. GASTROINTESTINAL: Patient denies any abdominal pain, constipation, nausea, vomiting, diarrhea. Complaining of abdominal distention GENITOURINARY: Patient denies any urinary symptoms of burning or frequency or hematuria, denies any form in the urine. SKIN: Denies any rash. MUSCULOSKELETAL: Complaining of leg weakness NEUROLOGICAL: Denies any neurological problems of strokes, seizures or confusion. Denies any memory problems. PSYCHIATRIC: Denies any depression or anxiety. LYMPHATICS : No lymphadenopathy Exam Vital Signs Temp Pulse Resp BP Pulse Ox O2 Del Method O2 Flow Rate 36.8 C 76 18 114/60 95 Nasal Cannula 2 07/29/24 08:00 07/29/24 08:44 07/29/24 08:00 07/29/24 08:44 07/29/24 08:00 07/29/24 08:00 07/29/24 08:00 Narrative Exam GENERAL APPEARANCE: Patient seems to be comfortable, adequately hydrated and nourished. at bedside HEENT: EOMI, PERRLA NECK: Neck supple, no JVD or bruit CARDIOVASCULAR: Heart regular, no murmurs LUNGS/CHEST: Chest clear to auscultation. No rales, rhonchi, wheezing ABDOMEN: Soft, nontender, distended. Ascites ++ no masses. Normal bowel sounds. EXTREMITIES: 2+ edema in the lower extremities SKIN: Skin exam normal without any rashes MUSCULOSKELETAL: In bed PSYCHIATRIC: Normal mood, affect LYMPHATICS: No lymphadenopathy noted NEUROLOGICAL : No neurological deficits Objective Labs 07/29/24 08:57 07/29/24 08:57 Labs: Laboratory Results - last 24 hr 07/29/24 08:57 WBC 3.9 RBC 2.71 L Hgb 9.3 L Hct 27.8 L MCV 103 H MCH 34.3 MCHC 33.5 RDW Std Deviation 57.4 H Plt Count 90 L Neut % (Auto) 64 Lymph % (Auto) 18 [place] % (Auto) 14 H Eos % (Auto) 3 Baso % (Auto) 1 Neut # (Auto) 2.5 Lymph # (Auto) 0.7 L [place] # (Auto) 0.5 Eos # (Auto) 0.1 Baso # (Auto) 0.0 Immature Gran # (Auto) 0.00 Absolute Nucleated RBC 0.00 Immature Gran % 0 Nucleated RBC % 0 Assessment & Plan Additional Assessment & Plan Additional Plan: 84-year-old female with PMHx of HTN, T2DM, HLD, anemia, hepatocellular disease, s/p pacemaker presenting to ED with worsening lower extremity edema. She was initially on BUMEX drip which was transitioned to 2 mg TID, total urine output of 2000. Nephrology was consulted for BLAKE and concern for decreased urine output. Renal function stable. Agree with cardiology on BUMEX 2 mg daily and ALDACTONE 50 mg daily. BLAKE on CKD stage IIIb Prerenal BLAKE in settings of third spacing vs. progression of CKD. Hx of CHF and cirrhosis, and diabetes. Likely oliguric at baseline as she is on home LASIX 20 mg BID and METOLAZONE 5 mg daily. Presenting with worsening lower extremity edema over the last few weeks. Reports no decrease in urine output since. Denies any urinary symptoms Admission CR 2.1 (baseline 1.5), EGFR 24 (baseline 30s), BUN 83. Serum osmolarity 306 elevated, likely 2/2 elevated BUN. UA bland and negative for UTI. CXR showing vascular congestion, satting well on room air. Echocardiogram showed EF 55 to 60%, distal dysfunction type II, mod-severe MR & TR. Initially on BUMEX drip, transition to 2 mg TID. Persistent significant bilateral lower extremity edema on exam, 24H urine output 2.3 L, overall balance -1.1 L. Renal function change, CR 2.0, BUN 84, GFR 24, no electrolyte abnormalities. ? Discontinue home METFORMIN and PANTOPRAZOLE on discharge ? Strict ODALIS's ? Renally dose meds, avoid overdiuresis and NEPHROTOXINS ? Daily CMP ? Agree with cardiology on BUMEX 2 mg daily and ALDACTONE 50 mg daily. ? Continue fluid restriction Heart failure Liver cirrhosis Hyperbilirubinemia T2DM Essential hypertension HLD ? Managed by primary team.
[2024-07-29 10:07] LABS: Albumin, Serum 3.5 gm/dL (3.4-4.8); Albumin/Globulin Ratio 1.1 (1.2-2.2); Alkaline Phosphatase 232 U/L (46-116); Anion Gap 8 (7-16); Aspartate Amino Transferase 16 U/L (0-34); BUN/Creatinine Ratio 43 Ratio (12-20); Bilirubin,Total 2.9 mg/dL (0.3-1.2); Blood Urea Nitrogen 86 mg/dL (9-23); Calcium 8.8 mg/dL (8.3-10.6); Calcium (Corrected) 9.2 mg/dL (8.5-10.1); Carbon Dioxide 32.9 mMol/L (20.0-31.0); Chloride 99 mMol/L (98-107); Estimated Creatinine Clearance 19.7 mL/min (>60); Globulin 3.1 gm/dL (2.3-3.5); Glucose 137 mg/dL (74-106); Osmolality,Calculated 307 (275-295); Potassium 3.8 mMol/L (3.4-5.1); Sodium 140 mMol/L (136-145); Total Protein 6.6 gm/dL (5.7-8.2); eGFR 24 See Note
[2024-07-29 10:09] LABS: Alanine Aminotransferase 9 U/L (10-49)
[2024-07-29] MEDS: INSULIN LISPRO (AdmeLOG) 1 UNIT/0.01 ML UNIT SC ×2 (12:03→16:59)
--- NOTE | 2024-07-29 12:16 | PC.SS ---
Addendum entered by Silvestre Obrien 07/29/24 15:36: SS set up will call transporation for 1800 with Patricia Addendum entered by Silvestre Obrien 07/29/24 15:15: SS spoke with Bello, spouse, pt will transport [facility] 6pm [facility] SS spoke with medical team informing of pt acceptance; nurse will inform pt SS spoke with Magdy Silverio, received auth number [id number] Chrissy Brady, confirmed pt acceptance Original Note: SS spoke with Sarahi, daughter, with assitance Taniya YO 115, confirmed plan to go to SNF; confirmed [facility] and is open to other facilities if [facility] not an option SS submitted referral via [facility] SS completed PASRR Level 1 SS spoke with Chrissy Brady, confirmed female bed available SS met with pt at bedside using all necessary precautions; Simeon YO 119 assisted with translation; Bello, pt spouse, was at bedside; decision was to go to SNF; preference is [facility]
--- NOTE | 2024-07-29 13:54 | PD.IMPROG ---
Documentation for date of: 07/29/24 Subjective Subjective Interval history: Peripheral edema improved Exam Vital Signs Temp Pulse Resp BP Pulse Ox O2 Del Method O2 Flow Rate 97.6 F 78 17 112/63 97 Nasal Cannula 2 07/29/24 12:00 07/29/24 12:00 07/29/24 12:00 07/29/24 12:00 07/29/24 12:00 07/29/24 12:00 07/29/24 12:00 Objective Labs 07/29/24 08:57 07/29/24 08:57 Labs: Laboratory Results - last 24 hr 07/29/24 08:57 WBC 3.9 RBC 2.71 L Hgb 9.3 L Hct 27.8 L MCV 103 H MCH 34.3 MCHC 33.5 RDW Std Deviation 57.4 H Plt Count 90 L Neut % (Auto) 64 Lymph % (Auto) 18 [place] % (Auto) 14 H Eos % (Auto) 3 Baso % (Auto) 1 Neut # (Auto) 2.5 Lymph # (Auto) 0.7 L [place] # (Auto) 0.5 Eos # (Auto) 0.1 Baso # (Auto) 0.0 Immature Gran # (Auto) 0.00 Absolute Nucleated RBC 0.00 Immature Gran % 0 Nucleated RBC % 0 Sodium 140 Potassium 3.8 Chloride 99 Carbon Dioxide 32.9 H Anion Gap 8 BUN 86 H Creatinine 2.0 H Estim Creat Clear Calc 19.7 L eGFR 24 L BUN/Creatinine Ratio 43 H Glucose 137 H Calculated Osmolality 307 H Calcium 8.8 Corrected Calcium 9.2 Total Bilirubin 2.9 H D AST 16 ALT 9 L Alkaline Phosphatase 232 H Total Protein 6.6 Albumin 3.5 Globulin 3.1 Albumin/Globulin Ratio 1.1 L Impressions Impression: Anasarca improving. Pedal Edema improving Continue current management Assessment & Plan A&P Narrative # Anasarca most likely due to underlying cirrhotic liver disease of uncertain etiology 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 fluid restriction in 24 hours Spironolactone 25 mg p.o. twice daily Complete workup ordered for the chronic active hepatitis Will follow the patient # Cholelithiasis asymptomatic Other medical problems include # CHF # Essential hypertension # Diabetes mellitus type 2 # Cardiac arrhythmias requiring pacemaker placement Thank you very much for the opportunity to participate in the care of this patient Time Spent With Patient Time: Total time spent is greater than 50% in coordination of care (as documented) at patient's floor/unit and/or counseling patient:
--- NOTE | 2024-07-29 16:10 | ESDS_ITS ---
Planned Discharge Date 07/29/24 DS: Providers Provider Date of admission: 07/24/24 21:43 Primary care physician: Mauro Castillo MD Admitting Provider: Bertrand Garcia MD Attending Provider on Admission: Amauri Nelson MD Consults: 07/24/24 20:35 Consult to Gastroenterology Stat Comment: Cirrhosis Ascites Anasarca Consulting Provider: Florence Le 07/25/24 00:02 Referral Harvey Routine Comment: Referral Physical Therapy Routine Comment: Physician Instructions: 07/25/24 00:03 Referral Respiratory Therapy Routine Comment: 07/27/24 08:38 Consult to Cardiology Routine Comment: Heart failure, HFpEF Consulting Provider: Evin Evans 07/27/24 14:00 Consult to Nephrology Stat Comment: BLAKE on CKD vs CKD progression Consulting Provider: Tirso Tobar Attending Provider on DC: Lobito Houser MD Discharging Provider: Lobito Houser MD DS: Diagnosis Problem List Completed Was Problem List Reviewed/Reconciled?: Yes Hospital Course Hospital Course Hospital course: 84-year-old female with significant past medical history of hypertension, diabetes mellitus type 2, hyperlipidemia, anemia, hepatocellular disease, s/p pacemaker placement x 2 presented to ED on 07/24/2024 with chief complaint of bilateral lower limb edema and admitted for Heart failure. Labs at the time of admission are significant for hemoglobin 10.9, platelets 103, BUN 79, creatinine 2.1, total bilirubin 2.8, BNP 270, AST/ALT 19/11. CT abdomen showed mild CHF, cirrhosis, cholelithiasis, mild to moderate ascites, anasarca and dilated IVC consistent with heart failure, no bowel obstruction. Lower extremity Doppler is negative for DVT. Chest x-ray revealed mild to moderate CHF. EKG showed normal paced rhythm Echo done during the hospital stay showed LVEF 55-60%. Diastolic Dysfunction II. RVSP elevated 65 mmHg. LA & RA severely dilated. Mod-Severe MR & TR. AOV sclerosis. Dilated IVC. Dr. Evans was consulted during the hospital stay and recommended that patient is having restrictive cardiomyopathy with biatrial enlargement and recommended to treat with diuretic. Also stated that patient is having intermediate prognosis and patient may have progressive heart failure. Dr. Tobar was consulted in view of CKD, recommended to continue diuresis and discharge patient with 2 Mg Bumex. Patient was treated with IV diuretics during the hospital stay and patient was -4390 mL by the time of discharge. Recommended to stop metformin as patient is having CKD stage IV Patient is discharged to SNF with the following medications and recommendations -Follow-up with PCP within 1 week of discharge. If you do not have appointment, please follow-up with the [facility] with Dr. Houser. Call [phone] to make an appointment. -Follow up with Dr. Langston/ Dr. Evans within 1 week of discharge. -Start bumetanide 2 Mg p.o. daily, spironolactone 50 Mg p.o. daily, Jardiance 10mg p.o. qday -Continue carvedilol 6.25 Mg p.o. twice daily, vitamin B12, ferrous sulfate 325 mg, lovastatin 20 Mg p.o. at bedtime -Recommended to stop digoxin, furosemide, metformin, metolazone, potassium -Recommended to take pantoprazole 40 Mg as needed for heartburn or epigastric pain -Recommended salt and fluid restriction. -Return to ED if symptoms persist or return #Anasarca. #In setting of heart failure and liver cirrhosis. 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 # Hyperbilirubinemia #CKD stage IV. #Diabetes mellitus type 2. #Essential hypertension #Hyperlipidemia Patient plan of care was discussed with the attending physician, Dr. Omar Houser, PGY1 Time Spent with Patient Time attestation: Total time spent providing and/or coordinating discharge services: Time spent: Less than 30 minutes Exam Vital Signs Temp Pulse Resp BP Pulse Ox O2 Del Method O2 Flow Rate 97.6 F 78 17 112/63 97 Nasal Cannula 2 07/29/24 12:00 07/29/24 12:07/29/24 12:07/29/24 12:00 07/29/24 12:00 07/29/24 12:07/29/24 12:00 Narrative Exam General: Awake. lying comfortably on the bed HEENT: Normocephalic, atraumatic, mucous membranes moist. Heart: Regular rate and rhythm, pansystolic murmur heard in mitral and tricuspid area. Pacemaker noted Lungs: Clear to auscultation with no wheezing or crackles. Abdomen: Soft, moderately distended, nontender, positive bowel sounds. ?No guarding or rebound tenderness. Neurologic: Alert and oriented x3, no gross neurological deficit, and patient able to move all 4 extremities. Extremities: Bilateral lower extremity edema extending up to the upper abdomen, resolving from the admission Skin: No rash or ecchymoses. Discharge Plan Plan Patient Disposition: Xfer [facility]illed [facility] Fac (SNF) Patient condition on transfer: Stable Care Plan Goals: -Follow-up with PCP within 1 week of discharge. If you do not have appointment, please follow-up with the [facility] with Dr. Houser. Call [phone] to make an appointment. -Follow up with Dr. Langston/ Dr. Evans within 1 week of discharge. -Start bumetanide 2 Mg p.o. daily, spironolactone 50 Mg p.o. daily, Jardiance 10mg p.o. qday -Continue carvedilol 6.25 Mg p.o. twice daily, vitamin B12, ferrous sulfate 325 mg, lovastatin 20 Mg p.o. at bedtime -Recommended to stop digoxin, furosemide, metformin, metolazone, potassium -Recommended to take pantoprazole 40 Mg as needed for heartburn or epigastric pain -Recommended salt and fluid restriction. -Return to ED if symptoms persist or return Prescriptions/Referrals Prescriptions/Med Rec: New spironolactone 25 mg Tablet 50 mg PO HS Qty: 30 0RF bumetanide 2 mg tablet 2 mg PO QDAY Qty: 30 0RF Jardiance 10 mg tablet 10 mg PO QAM Qty: 30 0RF Continued lovastatin 20 mg Tablet 20 mg PO HS fluticasone propionate 50 mcg/actuation spray,suspension 1 spray INTRANASAL QDAY Patient Comments: USE 1 SPRAY EN CADA PORO DE [place] TODOS LOS D ferrous sulfate 325 mg (65 mg iron) tablet 325 mg PO BID Patient Comments: TOME 1 TABLETA POR V A ORAL DOS VECES AL D A carvedilol 6.25 mg tablet 6.25 mg PO BID Patient Comments: TOME 1 TABLETA POR V A ORAL DOS VECES AL D A CON ALIMENTO cyanocobalamin (vitamin B-12) [Vitamin B-12] 500 mcg tablet 500 mcg PO QDAY Changed pantoprazole 40 mg Tablet,Delayed Release (Dr/Ec) 40 mg PO PRN PRN (Reason: heart burn or gastritis) Qty: 30 0RF Discontinued metformin 500 mg tablet 500 mg PO BID Qty: 60 0RF furosemide 20 mg tablet 20 mg PO BID Patient Comments: TOME 1 TABLETA POR V A ORAL DOS VECES AL D A digoxin 125 mcg (0.125 mg) tablet 0.125 mg PO DAILY Patient Comments: TOME 1 TABLETA POR V A ORAL TODOS LOS D potassium chloride 10 mEq tablet extended release 10 meq PO DAILY Patient Comments: TOME RACHEL TABLETA TODOS LOS D CON ALIMENTO metolazone 5 mg tablet 5 mg PO DAILY Patient Comments: TOME 1 TABLETA POR V A ORAL TODOS LOS D Referrals: Mauro Castillo MD [Primary Care Provider] - Patient/Caregiver Discharge Instructions Education Materials: Managing Type 2 Diabetes, Heart Failure Print Language: Arabic Stand Alone Forms: Janet Award Info., Patient Portal Info Letter Discharge Order Discharge Orders: Discharge (Routine); Ordered 07/29/24 Ordered By: Lobito Houser Quality Discharge Quality Measures VTE prophylaxis MD Attestestation MD Attestation I attest that I was physically present for the evaluation, physical examination, lab and imaging review of the patient with the residents. I discussed the case with the residents and agree with the findings and plans of care as documented vernell archuleta. Amauri Nelson MD
[2024-07-29] MEDS: ferumoxytoL (NON-ESRD) 510 MG in SODIUM CHLORIDE 0.9% 100 ML 234 MG IV (17:00)
[2024-07-29] MEDS: EPOETIN ALFA INJ 1,000 UNIT/0.05 ML UNIT 10000 UNIT SC (17:00)
--- NOTE | 2024-07-29 19:41 | ESPR_ITS ---
RE: YAYO NGO : 1940 DATE OF SERVICE: 07/29/2024 SUBJECTIVE: The patient is an 84-year-old patient admitted to the hospital with congestive heart failure symptoms, predominant right heart failure. Workup shows restricted cardiomyopathy and biatrial enlargement, moderate to severe mitral and tricuspid regurgitation, but small left ventricle and enlarged both atria consistent with restrictive cardiomyopathy and there is some restrictive physiology. The patient should be diuresed and she is responding well so far. Plan on discharge the patient home today. OBJECTIVE: Todays, exam shows, Vital Signs: Blood pressure is stable at 112/63, pulse rate is 78, respirations 17, temperature normal. Neck: Supple. Lungs: Decreased breath sounds. Heart: S1 and S2 regular. Abdomen: Thin and soft. Extremities: 2+ edema on both feet. : Not performed. Rectal: Not performed. LABORATORY DATA: Hemoglobin is stable at 9.3, chronically anemic. Chemistry panel showed creatinine and BUN is elevated. BUN is 86, creatinine 2.0, she has CKD. ASSESSMENT: 1. Congestive heart failure with secondary restricted cardiomyopathy right heart failure with pulmonary hypertension. 2. Moderate to severe mitral regurgitation. 3. Tricuspid regurgitation. 4. Chronic kidney disease. RECOMMENDATIONS: Continue diuretic therapy despite renal insufficiency because of severe edema. Prognosis is extremely poor because of the residual cardiomyopathy, generally has poor prognosis. DT: 16:43:02 TT: 19:21:00 Ref: [id number] - TID: [id number]
--- NOTE | 2024-07-29 20:15 | PC.NURSE ---
HARDWARE TECHNICIAN reported to repairer typewriter [facility] some blood in the urine. Crusher Assembler got in the restroom and patient had already wiped herself out, there was pink tinged blood on the toilet paper. Pt reported that she had noticed that before but did not reported it. DR. Gonzalez was made aware and canceled DC order for now.
--- NOTE | 2024-07-29 21:11 | PC.NURSE ---
donnaay to hold heparin 2[address] Crespo.
[2024-07-29] MEDS: ATORVASTATIN CALCIUM 20 MG TABLET 40 MG PO (21:15)
[2024-07-29] MEDS: SPIRONOLACTONE 25 MG TABLET PO (21:15)
[2024-07-29 23:02] LABS: Collection Type, Urine Clean Catch
[2024-07-29 23:08] LABS: Bilirubin,Urine Negative (Negative); Blood,Urine 2+ (Negative); Clarity,Urine Clear (Clear/Hazy); Color,Urine Lt-Yellow (Lt Yel-Yel); Glucose, Urine Negative (Negative); Ketones,Urine Negative (Negative); Leukocyte Esterase,Urine Positive (Negative); Nitrite,Urine Negative (Negative); PH,Urine 6.5 (5.0-7.0); Protein,Urine Negative (Neg - Trace); RBC,Urine 6 /hpf (0-3); Squamous Epithelial Cell,Urine 1 /hpf (0-5); Urobilinogen,Urine Negative mg/dL (0.0-1.0); WBC,Urine 2 /hpf (0-5)
[2024-07-30] VITALS (8 sets, daily range): BP systolic 105–122; BP diastolic 55–66; PULSE 72–87; RESP 16–27; TEMP 36.2–37.1; O2SAT 93–95
--- NOTE | 2024-07-30 05:10 | PC.NURSE ---
Pt complaining of burning sensation on private area, area was assessed and there was found a pressure injury. Area was cleaned and pat dry, z-guard cream applied. Pt's at bedside and DR. Weiner were made aware.
[2024-07-30 05:33] LABS: Basophils # (Auto) 0.1 Thou/mm3 (0.0-0.2); Basophils % (Auto) 1 % (0-2.5); Eosinophils # (Auto) 0.1 Thou/mm3 (0.0-0.5); Eosinophils % (Auto) 3 % (0-10); Hematocrit 28.9 % (36.0-46.0); Hemoglobin 9.5 g/dL (12.0-16.0); Immature Granulocytes % (Auto) 1 % (0-0); Immature Granulocytes Auto 0.03 Thou/mm3 (0.00-0.00); Lymphocytes # (Auto) 0.7 Thou/mm3 (1.0-4.8); Lymphocytes % (Auto) 17 % (10-50); Mean Corpuscular HGB Conc 32.9 g/dl (31.0-37.0); Mean Corpuscular Hemoglobin 33.9 pg (25.0-35.0); Mean Corpuscular Volume 103 fL (80-100); Monocytes # (Auto) 0.6 Thou/mm3 (0.0-0.8); Monocytes % (Auto) 15 % (0-12); Neutrophils # (Auto) 2.5 Thou/mm3 (1.8-7.7); Neutrophils % (Auto) 62 % (37-80); Nucleated Red Blood Cell % 0 /100 WBC (0); Platelet Count 106 Thou/mm3 (140-440); RDW Standard Deviation 58.2 fL (36.4-46.3)
[2024-07-30] MEDS: LACTULOSE SYRUP 20 GM/30 ML UDC 10 GM PO (06:03)
[2024-07-30 06:24] LABS: Alanine Aminotransferase 9 U/L (10-49); Albumin, Serum 3.8 gm/dL (3.4-4.8); Albumin/Globulin Ratio 1.2 (1.2-2.2); Alkaline Phosphatase 252 U/L (46-116); Anion Gap 10 (7-16); Aspartate Amino Transferase 17 U/L (0-34); BUN/Creatinine Ratio 42 Ratio (12-20); Bilirubin,Total 2.7 mg/dL (0.3-1.2); Blood Urea Nitrogen 89 mg/dL (9-23); Calcium 9.2 mg/dL (8.3-10.6); Calcium (Corrected) 9.4 mg/dL (8.5-10.1); Carbon Dioxide 31.1 mMol/L (20.0-31.0); Chloride 98 mMol/L (98-107); Creatinine (Component) 2.1 mg/dL (0.6-1.3); Estimated Creatinine Clearance 18.7 mL/min (>60); Globulin 3.1 gm/dL (2.3-3.5); Glucose 112 mg/dL (74-106); Osmolality,Calculated 305 (275-295); Potassium 3.8 mMol/L (3.4-5.1); Sodium 139 mMol/L (136-145); Total Protein 6.9 gm/dL (5.7-8.2); eGFR 23 See Note
[2024-07-30] MEDS: BUMETANIDE INJ 0.25 MG/ML VIAL 4 ML 2 MG IVP (09:11)
[2024-07-30] MEDS: carVEDILOL 3.125 MG TABLET 6.25 MG PO (09:16)
--- NOTE | 2024-07-30 09:29 | PD.RESPRO ---
Documentation for date of: 07/30/24 Subjective Subjective Interval history: Ms. Franks is a 84-year-old female with PMHx of HTN, T2DM, HLD, anemia, hepatocellular disease, s/p pacemaker presenting to ED with worsening lower extremity edema. She has a known history of heart failure and cirrhosis. Home medications include LASIX 20 mg BID, METOLAZONE 5 mg, DIGOXIN, METFORMIN, CARVEDILOL, and statin. Reports taking her medications daily as scheduled, however has been having worsening lower extremity edema. Reports she is urinating as usual, no decrease of urinary volume or incontinence. Denies urinary symptoms such as dysuria or hematuria. Denies recent or active illness including headache, fever, fall, trauma, LOC, syncope, chest pain, shortness of breath, abdominal pain, N/V/D/C, or GI bleed. On presentation she was severely anasarcous. CXR showed mild/moderate CHF. Venous Doppler negative for lower extremity DVT bilaterally. CT CAP showed mild CHF, cirrhosis, cholelithiasis, mild ? moderate ascites, anasarca. EKG showed electronic atrial pacemaker, no acute ST changes. Echocardiogram showed EF 55 to 60%, distal dysfunction type II, mod-severe MR & TR. She came without CR 2.1 (baseline 1.5), EGFR 24 (baseline 30s), BUN 83. She was initially on BUMEX drip which was switched to BUMEX 2 mg TID. She had a total urine output of 2000, balance is -910. Other significant labs include serum osmolarity 306, TB 2.3, ALP 202, BNP 270, normal troponin. Hgb 9.3, WBC 3.0, PLT 96. UA is bland without UTI. Nephrology was consulted for management of BLAKE and concern for poor urine output. 07/28/2024 examined at bedside. Denies new symptoms or worsening of symptoms. Denies fever, chills, headaches, chest pain, sob, cough, GI or urinary symptoms. Persistent significant bilateral lower extremity edema on exam, 24H urine output 2.3 L, overall balance -1.1 L. Renal function change, CR 2.0, BUN 84, GFR 24, no electrolyte abnormalities. Agree with cardiology on BUMEX 2 mg daily and ALDACTONE 25 mg daily. 07/29/2024 patient currently seen in medical floor. at bedside. He is concerned that she is significantly weakened and requesting for her to go to rehab. Blood pressure 112/63, heart rate 78, blood sugar 156. Hemoglobin 9.3, platelets 90. Sodium 140, potassium 3.8, BUN 86, creatinine 2, glucose 139,Venous Doppler ultrasound showed no DVT in both legs. 07/30/2024 examined at bedside. Reports no new symptoms or worsening of symptoms. Vitals WNL. Renal function stable, CR 2.1, BUN 89, GFR 23. Hgb 9.5, PLT 106. Urine output good, LE edema improving. Will continue with BUMEX 2 mg daily and ALDACTONE 25 mg. Exam Vital Signs Temp Pulse Resp BP Pulse Ox O2 Del Method O2 Flow Rate 97.1 F 74 20 110/61 95 Nasal Cannula 2 07/30/24 07:25 07/30/24 09:16 07/30/24 07:25 07/30/24 09:16 07/30/24 07:25 07/30/24 07:25 07/30/24 07:25 Narrative Exam CONSTITUTIONAL: Patient denies any fever, chills. HEENT: Denies any visual disturbances or hearing problems. CARDIOVASCULAR: Patient denies any chest pain, shortness of breath. ++ swelling in the lower extremities. PULMONARY: Patient denies any shortness of breath, cough. GASTROINTESTINAL: Patient denies any abdominal pain, constipation, nausea, vomiting, diarrhea. Complaining of abdominal distention GENITOURINARY: Patient denies any urinary symptoms of burning or frequency or hematuria, denies any form in the urine. SKIN: 2 saima LE edema, improving. MUSCULOSKELETAL: Complaining of leg weakness NEUROLOGICAL: Denies any neurological problems of strokes, seizures or confusion. Denies any memory problems. PSYCHIATRIC: Denies any depression or anxiety. LYMPHATICS : No lymphadenopathy Objective Labs 07/30/24 04:17 07/30/24 04:17 Labs: Laboratory Results - last 24 hr 07/29/24 07/29/24 07/30/24 08:57 22:45 04:17 WBC 3.9 4.0 RBC 2.71 L 2.80 L Hgb 9.3 L 9.5 L Hct 27.8 L 28.9 L MCV 103 H 103 H MCH 34.3 33.9 MCHC 33.5 32.9 RDW Std Deviation 57.4 H 58.2 H Plt Count 90 L 106 L Neut % (Auto) 64 62 Lymph % (Auto) 18 17 [place] % (Auto) 14 H 15 H Eos % (Auto) 3 3 Baso % (Auto) 1 1 Neut # (Auto) 2.5 2.5 Lymph # (Auto) 0.7 L 0.7 L [place] # (Auto) 0.5 0.6 Eos # (Auto) 0.1 0.1 Baso # (Auto) 0.0 0.1 Immature Gran # (Auto) 0.00 0.03 H Absolute Nucleated RBC 0.00 0.00 Immature Gran % 0 1 H Nucleated RBC % 0 0 Sodium 140 139 Potassium 3.8 3.8 Chloride 99 98 Carbon Dioxide 32.9 H 31.1 H Anion Gap 8 10 BUN 86 H 89 H Creatinine 2.0 H 2.1 H Estim Creat Clear Calc 19.7 L 18.7 L eGFR 24 L 23 L BUN/Creatinine Ratio 43 H 42 H Glucose 137 H 112 H Calculated Osmolality 307 H 305 H Calcium 8.8 9.2 Corrected Calcium 9.2 9.4 Total Bilirubin 2.9 H D 2.7 H AST 16 17 ALT 9 L 9 L Alkaline Phosphatase 232 H 252 H D Total Protein 6.6 6.9 Albumin 3.5 3.8 Globulin 3.1 3.1 Albumin/Globulin Ratio 1.1 L 1.2 Ur Collection Type Clean Catch Urine Color Lt-Yellow Urine Clarity Clear Urine pH 6.5 Ur Specific [place] 1.010 Urine Protein Negative Urine Glucose (UA) Negative Urine Ketones Negative Urine Blood 2+ A Urine Nitrite Negative Urine Bilirubin Negative Urine Urobilinogen (Auto) Negative Ur Leukocyte Esterase Positive Urine RBC 6 H Urine WBC 2 Ur Squamous Epith Cells 1 Urine Bacteria None Quality Measures Quality Measures VTE prophylaxis Advance care planning discussed with:: patient Assessment & Plan Assessment Current Active Medications: Generic Name Dose Route Start Last Admin Trade Name Freq PRN Reason Stop Dose Admin Acetaminophen 650 mg 07/24/24 21:43 Acetaminophen 325 Mg Tablet PO 08/23/24 21:42 Q6H PRN Fever >101.5 Acetaminophen 650 mg 07/24/24 21:43 Acetaminophen 325 Mg Tablet PO 08/23/24 21:42 Q6H PRN PAIN SCALE 1-3 (mild Atorvastatin Calcium 40 mg 07/25/24 21:00 07/29/24 21:15 Atorvastatin Calcium 20 Mg Tablet PO 08/24/24 20:59 40 mg HS SANJEEV Administration Bumetanide 2 mg 07/29/24 09:00 07/30/24 09:11 Bumetanide Inj 0.25 Mg/Ml Vial 4 Ml IVP 08/28/24 08:59 2 mg QDAY SANJEEV Administration Carvedilol 6.25 mg 07/25/24 09:00 07/30/24 09:16 Carvedilol 3.125 Mg Tablet PO 08/24/24 08:59 6.25 mg BID SANJEEV Administration Dextrose 25 ml 07/24/24 21:53 Dextrose 50%-Water Inj 50 Ml Syringe IV 08/23/24 21:52 Q15MIN PRN BG 50-70 responsive npo pt Dextrose 50 ml 07/24/24 21:53 Dextrose 50%-Water Inj 50 Ml Syringe IV 08/23/24 21:52 Q15MIN PRN BG <50 OR BG <70 & pt unresponsive Glucagon 1 mg 07/24/24 21:53 Glucagon Inj 1 Mg Vial IM Q15MIN PRN BG <70, and no IV access Heparin Sodium (Porcine) 5,000 unit 07/24/24 22:00 07/29/24 21:13 Heparin Sod Inj 5000 Unit/Ml Vial SC 08/07/24 21:59 Not Given Q8HR [facility] Insulin Human Lispro 0 unit 07/25/24 07:30 07/30/24 07:32 Insulin Lispro (Admelog) 1 Unit/0.01 Ml Unit SC 08/24/24 07:29 Not Given AC [facility] Protocol Ondansetron HCl 4 mg 07/24/24 21:43 Ondansetron Inj 2 Mg/Ml Inj 2 Ml IV 08/23/24 21:42 Q6H PRN NAUSEA OR VOMITING Protocol Spironolactone 25 mg 07/24/24 21:50 07/29/24 21:15 Spironolactone 25 Mg Tablet PO 08/23/24 21:49 25 mg HS SANJEEV Administration Plan 84-year-old female with PMHx of HTN, T2DM, HLD, anemia, hepatocellular disease, s/p pacemaker presenting to ED with worsening lower extremity edema. She was initially on BUMEX drip which was transitioned to 2 mg TID, total urine output of 2000. Nephrology was consulted for BLAKE and concern for decreased urine output. Renal function stable. Agree with cardiology on BUMEX 2 mg daily and ALDACTONE 25 mg daily. BLAKE on CKD stage IIIb Prerenal BLAKE in settings of third spacing vs. progression of CKD. Hx of CHF and cirrhosis, and diabetes. Likely oliguric at baseline as she is on home LASIX 20 mg BID and METOLAZONE 5 mg daily. Presenting with worsening lower extremity edema over the last few weeks. Reports no decrease in urine output since. Denies any urinary symptoms Admission CR 2.1 (baseline 1.5), EGFR 24 (baseline 30s), BUN 83. Serum osmolarity 306 elevated, likely 2/2 elevated BUN. UA bland and negative for UTI. CXR showing vascular congestion, satting well on room air. Echocardiogram showed EF 55 to 60%, distal dysfunction type II, mod-severe MR & TR. Bilateral lower extremity edema improving, urine output is good. Renal function stable, CR 2.1, BUN 89, GFR 23. ? Strict ODALIS's ? Renally dose meds, avoid overdiuresis and NEPHROTOXINS ? Daily CMP ? Agree with cardiology on BUMEX 2 mg daily and ALDACTONE 25 mg daily. ? Continue fluid restriction Heart failure Liver cirrhosis Hyperbilirubinemia T2DM Essential hypertension HLD ? Managed by primary team. Thank you for the opportunity to participate in the patient's care. Case was discussed with attending, Dr. Tobar. Chris Abel DO PGYI Attending Provider Attestation/Addendum Patient seen and examined with resident physician Dr. Perez. Note reviewed, agree with findings and recommendations. Patient with BLAKE in the setting of her significant anasarca. Agree with continuing on diuretics with close monitoring of renal function. BUN and creatinine stabilized. Edema improving. Patient can be discharged on Bumex 2 mg, Aldactone 50 mg will be going to rehab. Follow-up with me in 1 to 2 weeks
[2024-07-30 10:21] LABS: Collection Type, Urine Clean Catch
[2024-07-30 11:24] LABS: Bilirubin,Urine Negative (Negative); Blood,Urine 3+ (Negative); Clarity,Urine Clear (Clear/Hazy); Color,Urine Yellow (Lt Yel-Yel); Glucose, Urine Negative (Negative); Ketones,Urine Negative (Negative); Leukocyte Esterase,Urine Positive (Negative); Nitrite,Urine Negative (Negative); PH,Urine 6.5 (5.0-7.0); Protein,Urine Trace (Neg - Trace); RBC,Urine 4 /hpf (0-3); Specific Gravity,Urine 1.011 (1.001-1.035); Squamous Epithelial Cell,Urine 3 /hpf (0-5); WBC,Urine 6 /hpf (0-5)
[2024-07-30] MEDS: INSULIN LISPRO (AdmeLOG) 1 UNIT/0.01 ML UNIT SC (11:57)
--- NOTE | 2024-07-30 12:07 | PC.SS ---
Addendum entered by Iris Krishna 07/30/24 12:43: SS follow up note; SS was contacted by Monika from [facility] ETA for patient is 1730. SS informed patient's nurse Bhumi as well as contacted patient's daughter. SS will stand by for further needs. Original Note: SS follow up note; SS set up transportation for patient through [facility].
--- NOTE | 2024-07-30 13:29 | ESPR_ITS ---
<Statement entered by Evin Evans MD - 08/01/24 22:33> I personally examined the patient evaluated has multiple problems including restrictive cardiomyopathy congestive heart failure renal failure as well elevated creatinine BUN continues to have swelling of the feet patient is feeling better now but we will discharge the patient with diuretic have a cardiac evaluation as an outpatient following discharge evaluate the patient is a PGY 2 Dr. Radha Kowalski MD agree with the treatment plan and will be glad to follow the patient as an outpatient Documentation for date of: 07/30/24 Subjective Subjective Interval history: No acute events overnight.?Patient seen and examined at bedside this afternoon.?She reported doing well. Labs and vitals were reviewed. BP and HR are within normal ranges, patient is saturating 95% on 2L NC.?No further complaints at this time. Patient is planned for discharge to [place] post acute. Discussed with patient and her with telephone freelance interpreter/translator the importance of continued diuretic therapy, establishing care at [facility], and following up with cardiology following discharge. Review of systems otherwise negative except what is mentioned above. Exam Vital Signs Temp Pulse Resp BP Pulse Ox O2 Del Method O2 Flow Rate 97.1 F 73 20 120/66 95 Nasal Cannula 2 07/30/24 12:00 07/30/24 12:00 07/30/24 12:00 07/30/24 12:00 07/30/24 12:00 07/30/24 12:07/30/24 12:00 Narrative Exam Physical Exam General: Awake and in no acute distress. Conversational and non-toxic appearing on room air. HEENT: Normocephalic, atraumatic, mucous membranes moist. Heart: Regular rate and rhythm, normal S1 and S2, 2/6 systolic murmur at the left sternal border. Lungs: Clear to auscultation with no wheezing or crackles. Abdomen: Soft, distended, mild ascites, nontender, positive bowel sounds. ?No guarding or rebound tenderness. Neurologic: Alert and oriented x3, no gross neurological deficit, and patient able to move all 4 extremities. Extremities: 4+ bilateral pitting lower extremity edema Skin: No rash or ecchymoses. Objective Labs 07/30/24 04:17 07/30/24 04:17 Labs: Laboratory Results - last 24 hr 07/29/24 07/30/24 07/30/24 22:45 04:17 10:00 WBC 4.0 RBC 2.80 L Hgb 9.5 L Hct 28.9 L MCV 103 H MCH 33.9 MCHC 32.9 RDW Std Deviation 58.2 H Plt Count 106 L Neut % (Auto) 62 Lymph % (Auto) 17 [place] % (Auto) 15 H Eos % (Auto) 3 Baso % (Auto) 1 Neut # (Auto) 2.5 Lymph # (Auto) 0.7 L [place] # (Auto) 0.6 Eos # (Auto) 0.1 Baso # (Auto) 0.1 Immature Gran # (Auto) 0.03 H Absolute Nucleated RBC 0.00 Immature Gran % 1 H Nucleated RBC % 0 Sodium 139 Potassium 3.8 Chloride 98 Carbon Dioxide 31.1 H Anion Gap 10 BUN 89 H Creatinine 2.1 H Estim Creat Clear Calc 18.7 L eGFR 23 L BUN/Creatinine Ratio 42 H Glucose 112 H Calculated Osmolality 305 H Calcium 9.2 Corrected Calcium 9.4 Total Bilirubin 2.7 H AST 17 ALT 9 L Alkaline Phosphatase 252 H D Total Protein 6.9 Albumin 3.8 Globulin 3.1 Albumin/Globulin Ratio 1.2 Ur Collection Type Clean Catch Clean Catch Urine Color Lt-Yellow Yellow Urine Clarity Clear Clear Urine pH 6.5 6.5 Ur Specific [place] 1.010 1.011 Urine Protein Negative Trace Urine Glucose (UA) Negative Negative Urine Ketones Negative Negative Urine Blood 2+ A 3+ A Urine Nitrite Negative Negative Urine Bilirubin Negative Negative Urine Urobilinogen (Auto) Negative 2.0 Ur Leukocyte Esterase Positive Positive Urine RBC 6 H 4 H Urine WBC 2 6 H Ur Squamous Epith Cells 1 3 Urine Bacteria None None Quality Measures Quality Measures VTE prophylaxis Advance care planning discussed with:: patient Assessment & Plan Assessment Current Active Medications: Generic Name Dose Route Start Last Admin Trade Name Freq PRN Reason Stop Dose Admin Acetaminophen 650 mg 07/24/24 21:43 Acetaminophen 325 Mg Tablet PO 08/23/24 21:42 Q6H PRN Fever >101.5 Acetaminophen 650 mg 07/24/24 21:43 Acetaminophen 325 Mg Tablet PO 08/23/24 21:42 Q6H PRN PAIN SCALE 1-3 (mild Atorvastatin Calcium 40 mg 07/25/24 21:00 07/29/24 21:15 Atorvastatin Calcium 20 Mg Tablet PO 08/24/24 20:59 40 mg HS SANJEEV Administration Bumetanide 2 mg 07/29/24 09:00 07/30/24 09:11 Bumetanide Inj 0.25 Mg/Ml Vial 4 Ml IVP 08/28/24 08:59 2 mg QDAY SANJEEV Administration Carvedilol 6.25 mg 07/25/24 09:00 07/30/24 09:16 Carvedilol 3.125 Mg Tablet PO 08/24/24 08:59 6.25 mg BID SANJEEV Administration Dextrose 25 ml 07/24/24 21:53 Dextrose 50%-Water Inj 50 Ml Syringe IV 08/23/24 21:52 Q15MIN PRN BG 50-70 responsive npo pt Dextrose 50 ml 07/24/24 21:53 Dextrose 50%-Water Inj 50 Ml Syringe IV 08/23/24 21:52 Q15MIN PRN BG <50 OR BG <70 & pt unresponsive Glucagon 1 mg 07/24/24 21:53 Glucagon Inj 1 Mg Vial IM Q15MIN PRN BG <70, and no IV access Heparin Sodium (Porcine) 5,000 unit 07/24/24 22:00 07/29/24 21:13 Heparin Sod Inj 5000 Unit/Ml Vial SC 08/07/24 21:59 Not Given Q8HR SANJEEV Insulin Human Lispro 0 unit 07/25/24 07:30 07/30/24 11:57 Insulin Lispro (Admelog) 1 Unit/0.01 Ml Unit SC 08/24/24 07:29 1 unit AC SANJEEV Administration Protocol Ondansetron HCl 4 mg 07/24/24 21:43 Ondansetron Inj 2 Mg/Ml Inj 2 Ml IV 08/23/24 21:42 Q6H PRN NAUSEA OR VOMITING Protocol Spironolactone 25 mg 07/24/24 21:50 07/29/24 21:15 Spironolactone 25 Mg Tablet PO 08/23/24 21:49 25 mg HS SANJEEV Administration Plan 84-year-old Romanian-speaking female with past medical history of hypertension, type 2 diabetes, hyperlipidemia, CKD stage 3B, anemia, cirrhosis, s/p pacemaker placement x 2 who initially presented to ED on 07/24/2024 with 3 weeks of worsening lower extremity bilateral lower limb edema, subsequently admitted for further management of anasarca. Cardiology was consulted for further evaluation of CHF with preserved EF and possible pulmonary hypertension. 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 07/27/2024 Echo showed LVEF 55-60%. EF is preserved but there is diastolic dysfunction II due to stiffening of the ventricles. There are extremely large right and left atria and severe mitral and tricuspid regurgitation. Unfortunately surgical repair is not an option given restrictive cardiomyopathy and medical management alone is recommended with diuretic therapy. Due to the above patient has likely type 2 PAH. Prognosis for this patient is guarded and condition will likely progress over the next 3-5 years. Diagnosis was explained to the patient and her at bedside. -Continue diuretics including Bumex 2 mg IV qday, Aldactone 25 mg HS, patient may be discharged on these doses -Discontinue home furosemide, metolazone -Maintain HR in the 70-80 range -No need for cath or ischemic heart disease workup for now -Patient will require close outpatient follow up, establish with [facility] -Follow up in-person appointments with patient's manager animal Patient was discussed with the attending, Dr. Evans. Thank you for allowing us to participate in the care of this patient. Christie Kowalski, PGY-2
[2024-07-30 13:45] LABS: Creatine Kinase 33 U/L (34-171)
--- NOTE | 2024-07-30 15:00 | PC.NURSE ---
Hand-off report given to TALIB Horn at [place]. Ambulance transport ETA 1730.
--- NOTE | 2024-07-30 17:44 | ESPR_ITS ---
Documentation for date of: 07/30/24 Subjective Subjective Interval history: Patient on diuretics for her anasarca and pedal edema Exam Vital Signs Temp Pulse Resp BP Pulse Ox O2 Del Method O2 Flow Rate 98.1 F 74 16 122/64 95 Nasal Cannula 2 07/30/24 16:00 07/30/24 16:00 07/30/24 16:00 07/30/24 16:00 07/30/24 16:00 07/30/24 16:00 07/30/24 12:00 Objective Labs 07/30/24 04:17 07/30/24 04:17 Labs: Laboratory Results - last 24 hr 07/29/24 07/30/24 07/30/24 22:45 04:17 10:00 WBC 4.0 RBC 2.80 L Hgb 9.5 L Hct 28.9 L MCV 103 H MCH 33.9 MCHC 32.9 RDW Std Deviation 58.2 H Plt Count 106 L Neut % (Auto) 62 Lymph % (Auto) 17 [place] % (Auto) 15 H Eos % (Auto) 3 Baso % (Auto) 1 Neut # (Auto) 2.5 Lymph # (Auto) 0.7 L [place] # (Auto) 0.6 Eos # (Auto) 0.1 Baso # (Auto) 0.1 Immature Gran # (Auto) 0.03 H Absolute Nucleated RBC 0.00 Immature Gran % 1 H Nucleated RBC % 0 Sodium 139 Potassium 3.8 Chloride 98 Carbon Dioxide 31.1 H Anion Gap 10 BUN 89 H Creatinine 2.1 H Estim Creat Clear Calc 18.7 L eGFR 23 L BUN/Creatinine Ratio 42 H Glucose 112 H Calculated Osmolality 305 H Calcium 9.2 Corrected Calcium 9.4 Total Bilirubin 2.7 H AST 17 ALT 9 L Alkaline Phosphatase 252 H D Total Creatine Kinase 33 L Total Protein 6.9 Albumin 3.8 Globulin 3.1 Albumin/Globulin Ratio 1.2 Ur Collection Type Clean Catch Clean Catch Urine Color Lt-Yellow Yellow Urine Clarity Clear Clear Urine pH 6.5 6.5 Ur Specific [place] 1.010 1.011 Urine Protein Negative Trace Urine Glucose (UA) Negative Negative Urine Ketones Negative Negative Urine Blood 2+ A 3+ A Urine Nitrite Negative Negative Urine Bilirubin Negative Negative Urine Urobilinogen (Auto) Negative 2.0 Ur Leukocyte Esterase Positive Positive Urine RBC 6 H 4 H Urine WBC 2 6 H Ur Squamous Epith Cells 1 3 Urine Bacteria None None Impressions Impression: Anasarca Pedal edema continue current diuretics Assessment & Plan A&P Narrative # Anasarca most likely due to underlying cirrhotic liver disease of uncertain etiology 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 fluid restriction in 24 hours Spironolactone 25 mg p.o. twice daily Complete workup ordered for the chronic active hepatitis Will follow the patient # Cholelithiasis asymptomatic Other medical problems include # CHF # Essential hypertension # Diabetes mellitus type 2 # Cardiac arrhythmias requiring pacemaker placement Thank you very much for the opportunity to participate in the care of this patient Time Spent With Patient Time: Total time spent is greater than 50% in coordination of care (as documented) at patient's floor/unit and/or counseling patient:
--- NOTE | 2024-07-30 18:28 | ESDS_ITS ---
Planned Discharge Date 07/30/24 DS: Providers Provider Date of admission: 07/24/24 21:43 Primary care physician: Mauro Castillo MD Admitting Provider: Bertrand Garcia MD Attending Provider on Admission: Amauri Nelson MD Consults: 07/24/24 20:35 Consult to Gastroenterology Stat Comment: Cirrhosis Ascites Anasarca Consulting Provider: Florence Le 07/25/24 00:02 Referral [place] Routine Comment: Referral Physical Therapy Routine Comment: Physician Instructions: 07/25/24 00:03 Referral Respiratory Therapy Routine Comment: 07/27/24 08:38 Consult to Cardiology Routine Comment: Heart failure, HFpEF Consulting Provider: Evin Evans 07/27/24 14:00 Consult to Nephrology Stat Comment: BLAKE on CKD vs CKD progression Consulting Provider: Tirso Tobar 07/30/24 11:22 Referral Wound Care Routine Comment: Labia skin breakdown Attending Provider on DC: Lobito Houser MD Discharging Provider: Lobito Houser MD DS: Diagnosis Problem List Completed Was Problem List Reviewed/Reconciled?: Yes Hospital Course Hospital Course Hospital course: 84-year-old female with significant past medical history of hypertension, diabetes mellitus type 2, hyperlipidemia, anemia, hepatocellular disease, s/p pacemaker placement x 2 presented to ED on 07/24/2024 with chief complaint of bilateral lower limb edema and admitted for Heart failure. Hospital course: Labs at the time of admission are significant for hemoglobin 10.9, platelets 103, BUN 79, creatinine 2.1, total bilirubin 2.8, BNP 270, AST/ALT 19/11. CT abdomen showed mild CHF, cirrhosis, cholelithiasis, mild to moderate ascites, anasarca and dilated IVC consistent with heart failure, no bowel obstruction. Lower extremity Doppler is negative for DVT. Chest x-ray revealed mild to moderate CHF. EKG showed normal paced rhythm Echo done during the hospital stay showed LVEF 55-60%. Diastolic Dysfunction II. RVSP elevated 65 mmHg. LA & RA severely dilated. Mod-Severe MR & TR. AOV sclerosis. Dilated IVC. Dr. Evans was consulted during the hospital stay and recommended that patient is having restrictive cardiomyopathy with biatrial enlargement and recommended to treat with diuretic. Also stated that patient is having intermediate prognosis and patient may have progressive heart failure. Dr. Tobar was consulted in view of CKD, recommended to continue diuresis and discharge patient with 2 Mg Bumex. Patient was treated with IV diuretics during the hospital stay and patient was -4390 mL by the time of discharge. Recommended to stop metformin as patient is having CKD stage IV Patient was supposed to get discharged on 07/29/2024, but discharge was failed because patient noted to have blood during urination. Urine analysis done on 07/30/2024 did showed only 4 RBC. The hematuria is most likely due to catheter related trauma. On local examination, no gross bleeding is noted. CK levels are done which are within normal limits. Patient is discharged to [facility] with the following medications and recommendations -Follow-up with PCP within 1 week of discharge. If you do not have appointment, please follow-up with the [facility] with Dr. Houser. Call [phone] to make an appointment. -Follow up with Dr. Langston/ Dr. Evans within 1 week of discharge. -Start bumetanide 2 Mg p.o. daily, spironolactone 50 Mg p.o. daily, Jardiance 10mg p.o. qday -Continue carvedilol 6.25 Mg p.o. twice daily, vitamin B12, ferrous sulfate 325 mg, lovastatin 20 Mg p.o. at bedtime -Recommended to stop digoxin, furosemide, metformin, metolazone, potassium -Recommended to take pantoprazole 40 Mg as needed for heartburn or epigastric pain -Recommended salt and fluid restriction. -Return to ED if symptoms persist or return #Anasarca. #In setting of heart failure and liver cirrhosis. 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 # Hyperbilirubinemia #CKD stage IV. #Diabetes mellitus type 2. #Essential hypertension #Hyperlipidemia Patient plan of care was discussed with the attending physician, Dr. Omar Houser, PGY1 Time Spent with Patient Time attestation: Total time spent providing and/or coordinating discharge services: Time spent: Less than 30 minutes Exam Vital Signs Temp Pulse Resp BP Pulse Ox O2 Del Method O2 Flow Rate 98.1 F 74 16 122/64 95 Nasal Cannula 2 07/30/24 16:00 07/30/24 16:00 07/30/24 16:07/30/24 16:00 07/30/24 16:00 07/30/24 16:00 07/30/24 12:00 Narrative Exam General: Awake. lying comfortably on the bed HEENT: Normocephalic, atraumatic, mucous membranes moist. Heart: Regular rate and rhythm, pansystolic murmur heard in mitral and tricuspid area. Pacemaker noted Lungs: Clear to auscultation with no wheezing or crackles. Abdomen: Soft, moderately distended, nontender, positive bowel sounds. ?No guarding or rebound tenderness. Neurologic: Alert and oriented x3, no gross neurological deficit, and patient a ble to move all 4 extremities. Extremities: Bilateral lower extremity edema extending up to the upper abdomen, resolving from the admission Skin: No rash or ecchymoses. Discharge Plan Plan Patient Disposition: Xfer Skilled Nsg Fac (SNF) Patient condition on transfer: Stable Care Plan Goals: -Follow-up with PCP within 1 week of discharge. If you do not have appointment, please follow-up with the [facility] with Dr. Houser. Call [phone] to make an appointment. -Follow up with Dr. Langston/ Dr. Evans within 1 week of discharge. -Start bumetanide 2 Mg p.o. daily, spironolactone 50 Mg p.o. daily, Jardiance 10mg p.o. qday -Continue carvedilol 6.25 Mg p.o. twice daily, vitamin B12, ferrous sulfate 325 mg, lovastatin 20 Mg p.o. at bedtime -Recommended to stop digoxin, furosemide, metformin, metolazone, potassium -Recommended to take pantoprazole 40 Mg as needed for heartburn or epigastric pain -Recommended salt and fluid restriction. -Return to ED if symptoms persist or return Prescriptions/Referrals Prescriptions/Med Rec: New spironolactone 25 mg Tablet 50 mg PO HS Qty: 30 0RF bumetanide 2 mg tablet 2 mg PO QDAY Qty: 30 0RF Jardiance 10 mg tablet 10 mg PO QAM Qty: 30 0RF Continued lovastatin 20 mg Tablet 20 mg PO HS fluticasone propionate 50 mcg/actuation spray,suspension 1 spray INTRANASAL QDAY Patient Comments: USE 1 SPRAY EN CADA PORO DE LA NARIZ TODOS LOS D ferrous sulfate 325 mg (65 mg iron) tablet 325 mg PO BID Patient Comments: TOME 1 TABLETA POR V A ORAL DOS VECES AL D A carvedilol 6.25 mg tablet 6.25 mg PO BID Patient Comments: TOME 1 TABLETA POR V A ORAL DOS VECES AL D A CON ALIMENTO cyanocobalamin (vitamin B-12) [Vitamin B-12] 500 mcg tablet 500 mcg PO QDAY Changed pantoprazole 40 mg Tablet,Delayed Release (Dr/Ec) 40 mg PO PRN PRN (Reason: heart burn or gastritis) Qty: 30 0RF Discontinued metformin 500 mg tablet 500 mg PO BID Qty: 60 0RF furosemide 20 mg tablet 20 mg PO BID Patient Comments: TOME 1 TABLETA POR V A ORAL DOS VECES AL D A digoxin 125 mcg (0.125 mg) tablet 0.125 mg PO DAILY Patient Comments: TOME 1 TABLETA POR V A ORAL TODOS LOS D potassium chloride 10 mEq tablet extended release 10 meq PO DAILY Patient Comments: TOME RACHEL TABLETA TODOS LOS D CON ALIMENTO metolazone 5 mg tablet 5 mg PO DAILY Patient Comments: TOME 1 TABLETA POR V A ORAL TODOS LOS D Referrals: Mauro Castillo MD [Primary Care Provider] - Patient/Caregiver Discharge Instructions Education Materials: Managing Type 2 Diabetes, Heart Failure Print Language: Setswana Stand Alone Forms: Janet Award Info., Patient Portal Info Letter Discharge Order Discharge Orders: Discharge (Routine); Ordered 07/30/24 Ordered By: Lobito Houser Quality Discharge Quality Measures VTE prophylaxis Attestestation MD Attestation I attest that I was physically present for the evaluation, physical examination, lab and imaging review of the patient with the residents. I discussed the case with the residents and agree with the findings and plans of care as documented above. Amauri Nelson MD
[2024-08-01 06:46] LABS: ANA Screen, IFA NEGATIVE (NEGATIVE); Alpha-1-Antitrypsin* 183 mg/dL (83-199); Ceruloplasmin* 40 mg/dL (14-48); Copper* 183 mcg/dL (70-175); Mitochondrial Ab NEGATIVE (NEGATIVE)
== END 2024-07-30 17:29 | disposition skilled nursing facility (03) | DRG 433 ==
LOC: SERX 20:38 → SERHOLD 07-25 06:06 → S3SX 07-25 06:06
PROVIDERS: Nurse Practitioner Primary Care; Specialist; Student in an Organized Health Care Education/Training Program; Admitting Provider Internal Medicine; Emergency Provider Emergency Medicine; PCP Family Medicine; Visit Provider Student in an Organized Health Care Education/Training Program
DX: K74.60 Unspecified cirrhosis of liver (principal); I13.0 Hypertensive heart and chronic kidney disease with heart failure and stage 1 through stage 4 chronic kidney disease, or unspecified chronic kidney disease; N17.9 Acute kidney failure, unspecified; R18.8 Other ascites; I50.30 Unspecified diastolic (congestive) heart failure; N18.4 Chronic kidney disease, stage 4 (severe); T83.83XA Hemorrhage due to genitourinary prosthetic devices, implants and grafts, initial encounter; I42.5 Other restrictive cardiomyopathy; I50.9 Heart failure, unspecified; I27.21 Secondary pulmonary arterial hypertension; E78.5 Hyperlipidemia, unspecified; D63.1 Anemia in chronic kidney disease; K80.20 Calculus of gallbladder without cholecystitis without obstruction; E11.22 Type 2 diabetes mellitus with diabetic chronic kidney disease; I08.1 Rheumatic disorders of both mitral and tricuspid valves; Z95.0 Presence of cardiac pacemaker; Z79.84 Long term (current) use of oral hypoglycemic drugs; Z88.6 Allergy status to analgesic agent; Y84.6 Urinary catheterization as the cause of abnormal reaction of the patient, or of later complication, without mention of misadventure at the time of the procedure; Z79.899 Other long term (current) drug therapy; Z79.4 Long term (current) use of insulin
CPT/HCPCS: 36415; 71045; 71250; 74176; 80053; 80061; 80074; 81001; 82103; 82390; 82525; 82550; 82746; 83036; 83540; 83550; 83690; 83735; 83880; 84100; 84443; 84484; 85025; 85610; 85730; 86038; 86255; 93005; 93225; 93306; 93970; 96372; 96374; 97163; 99285; J1643; J1815; J3490; J7050; Q0138; Q4081; A9270

== ENCOUNTER 2024-10-17 09:58 | Inpatient (IN) | payer MEDICARE, MEDICAID, SELFPAY ==
[2024-10-17] VITALS (11 sets, daily range): BP systolic 83–127; BP diastolic 51–82; PULSE 84–125; RESP 17–91; TEMP 36.5–37.9; O2SAT 88–96; BMI 31.4; BMI 30.6
--- NOTE | 2024-10-17 10:13 | EKG_ITS ---
[facility] Test Date: 2024-10-17 Pat Name: Tiny Senior Department: Room: - Gender: Female Senior Policy Analyst: : 1940 Requested By: Cassie Cortes Order Number: [id number] Reading MD: Cassie Cortes Measurements Intervals Adin Rate: 130 P: -61 NM: 199 QRS: -79 QRSD: 146 T: 131 QT: 329 QTc: 485 Interpretive Statements ECTOPIC ATRIAL TACHYCARDIA INTRAVENTRICULAR CONDUCTION DELAY [130+ ms QRS DURATION] Compared to ECG 07/24/2024 20:57:53 Intraventricular conduction delay now present Atrial-paced complex(es) or rhythm no longer present Ventricular-paced complex(es) or rhythm no longer present /store/S0/[id number].pdf
--- NOTE | 2024-10-17 10:13 | XR_ITS ---
Examination: AP chest single view TECHNIQUE: Portable upright AP chest single view Date and time: October 17, 2024 1044 hours Comparison July 24, 2024 INDICATIONS: Chest pain shortness of breath today. FINDINGS: Mild chronic heart failure pattern Moderate enlargement cardiac contour Prominent vascular congestion. No lobar pneumonia. Stable position cardiac leads IMPRESSION: Mild chronic heart failure pattern
--- NOTE | 2024-10-17 10:46 | PC.NURSE ---
Patient to er via ems with c/o n/vomiting and abd. pain, patient alert and oriented x 3, patient lethargic, however, answering questions appropriately, skin is warm dry and slightly pale, patient vomited approx. 50mls of dark/pinkish emesis, Dr. Aguirre made aware, new orders received, call light within reach.
[2024-10-17 10:57] LABS: Basophils # (Auto) 0.0 Thou/mm3 (0.0-0.2); Basophils % (Auto) 0 % (0-2.5); Eosinophils # (Auto) 0.0 Thou/mm3 (0.0-0.5); Eosinophils % (Auto) 0 % (0-10); Hematocrit 29.9 % (36.0-46.0); Hemoglobin 10.3 g/dL (12.0-16.0); Immature Granulocytes Auto 0.02 Thou/mm3 (0.00-0.00); Lactate (Lactic Acid) 1.8 mMol/L (0.4-2.0); Lymphocytes # (Auto) 1.0 Thou/mm3 (1.0-4.8); Lymphocytes % (Auto) 20 % (10-50); Mean Corpuscular HGB Conc 34.4 g/dl (31.0-37.0); Mean Corpuscular Hemoglobin 33.1 pg (25.0-35.0); Mean Corpuscular Volume 96 fL (80-100); Monocytes # (Auto) 0.2 Thou/mm3 (0.0-0.8); Monocytes % (Auto) 4 % (0-12); Neutrophils # (Auto) 3.8 Thou/mm3 (1.8-7.7); Neutrophils % (Auto) 75 % (37-80); Nucleated Red Blood Cell # 0.00 Thou/mm3 (0.00-0.00); Nucleated Red Blood Cell % 0 /100 WBC (0); Platelet Count 201 Thou/mm3 (140-440); RDW Standard Deviation 52.8 fL (36.4-46.3); Red Blood Count 3.11 Miln/mm3 (4.00-5.20); White Blood Count 5.0 Thou/mm3 (3.6-11.0)
[2024-10-17] MEDS: ONDANSETRON INJ 2 MG/ML INJ 2 ML 4 MG IVP (11:03)
[2024-10-17] MEDS: MORPHINE SULF INJ 10 MG/ML VIAL 3 MG IVP (11:04)
[2024-10-17] MEDS: PANTOPRAZOLE/NS 80MG IV PREMIX 80 MG/100 ML BAG 10 MG IV (11:05)
[2024-10-17 11:14] LABS: INR 1.1 (0.9-1.3); Partial Thromboplastin Time 26.5 Seconds (22.0-36.0); Prothrombin Time 12.4 Seconds (9.0-12.2)
[2024-10-17 11:16] LABS: B-Type Natriuretic Peptide 455 pg/mL (0-100)
[2024-10-17 11:25] LABS: Alanine Aminotransferase 15 U/L (10-49); Albumin, Serum 3.4 gm/dL (3.4-4.8); Albumin/Globulin Ratio 0.9 (1.2-2.2); Alkaline Phosphatase 258 U/L (46-116); Anion Gap 9 (7-16); Aspartate Amino Transferase 26 U/L (0-34); BUN/Creatinine Ratio 16 Ratio (12-20); Bilirubin,Total 4.8 mg/dL (0.3-1.2); Blood Urea Nitrogen 37 mg/dL (9-23); Calcium 8.8 mg/dL (8.3-10.6); Calcium (Corrected) 9.3 mg/dL (8.5-10.1); Carbon Dioxide 25.8 mMol/L (20.0-31.0); Chloride 105 mMol/L (98-107); Creatinine (Component) 2.3 mg/dL (0.6-1.3); Estimated Creatinine Clearance 20.0 mL/min (>60); Globulin 3.8 gm/dL (2.3-3.5); Glucose 104 mg/dL (74-106); Lipase 46 U/L (12-53); Magnesium 2.2 mg/dL (1.6-2.6); Osmolality,Calculated 288 (275-295); Potassium 3.8 mMol/L (3.4-5.1); Procalcitonin 1.17 ng/ml (0.0-0.49); Sodium 140 mMol/L (136-145); Total Protein 7.2 gm/dL (5.7-8.2); Troponin I 0.022 ng/mL (0.0-0.045); eGFR 21 See Note
--- NOTE | 2024-10-17 11:54 | PD.EDNV ---
Nausea/Vomit./Diarrhea-RME/HPI General Chief complaint: Nausea/Vomiting/Diarrhea Stated complaint: ALTERED Time Seen by Provider: 10/17/24 10:13 Arrival date/time: 10/17/24 09:58 RME / HPI RME / HPI Narrative: 84 year old female with history of pacemaker placement, hypertension, diabetes, hyperlipidemia, hepatocellular disease, anemia presents to the ED BIBA from home for evaluation of abdominal pain beginning last night. Described as aching in sensation that is localized to the epigastric region, rating 8/10 in severity. Accompanied by nausea and vomiting dark brown material. Occurring < 5 times since onset. No other associated symptoms reported. Related Data Home Medications ?Medication ?Instructions ?Recorded ?Confirmed lovastatin 20 mg tablet 20 mg PO HS 06/21/17 07/25/24 fluticasone propionate 50 1 spray intranasal QDAY 04/30/22 04/30/22 mcg/actuation nasal spray,suspension carvedilol 6.25 mg tablet 6.25 mg PO BID 07/25/24 07/25/24 cyanocobalamin (vitamin B-12) 500 500 mcg PO QDAY 07/25/24 07/25/24 mcg tablet (Vitamin B-12) ferrous sulfate 325 mg (65 mg 325 mg PO BID 07/25/24 07/25/24 iron) tablet Previous Rx's ?Medication ?Instructions ?Recorded bumetanide 2 mg tablet 2 mg PO QDAY #30 tabs 07/29/24 empagliflozin 10 mg tablet 10 mg PO QAM #30 tabs 07/29/24 (Jardiance) pantoprazole 40 mg tablet,delayed 40 mg PO PRN PRN heart burn or 07/29/24 release gastritis #30 tabs spironolactone 25 mg tablet 50 mg (2 x 25 mg) PO HS #30 tabs 07/29/24 Allergies Allergy/AdvReac Type Severity Reaction Status Date / Time aspirin Allergy Severe SWELLING Verified 07/24/24 14:26 TO LIPS chlorpheniramine Allergy Severe UNKNOWN Verified 07/24/24 14:26 PER PT diphenhydramine Allergy Severe SWELLING Verified 07/24/24 14:26 TO LIPS guaifenesin Allergy Severe UNKNOWN Verified 07/24/24 14:26 phenylpropanolamine Allergy Severe SWELLING Verified 07/24/24 14:26 TO LIPS Salicylates Allergy Severe SWELLING Verified 07/24/24 14:26 TO LIPS Review of Systems Review of Systems Systems Reviewed: All systems reviewed, normal except as documented Past Medical History Past Medical History CARDIAC: Positive Cardiac Disorders, Hypercholesterolemia, Congestive Heart Failure and Hypertension ENT: Positive Cataracts ENDOCRINE: Positive Endocrine Disorders and Diabetes Mellitus Type 2 HEMATOLOGIC: Positive Blood Disorders and Anemia OTHER HISTORY: Positive Chicken Pox and Mumps Surgical History SURGICAL: Positive Pacemaker Social History SMOKING STATUS: Never smoker SECOND HAND EXPOSURE: No SUBSTANCE USE: does not use ED Exam Narrative Physical exam: GENERAL APPEARANCE: alert and oriented x 4, well-developed, well-nourished HEENT: Normocephalic, atraumatic; pupils equal, round, reactive to light; EOMI; mucous membranes pink, moist; oropharynx clear NECK: Supple LUNGS: CTABL; no wheezes, no rales, no rhonchi HEART: Regular rate, regular rhythm; normal S1, S2; no murmurs ABDOMEN: Distention; normal BS; soft, epigastric tenderness, no guarding, no rebound; no masses, no organomegaly, no hernia BACK: no CVA tenderness EXTREMITIES: atraumatic; 3+ edema BLE NEUROLOGIC: awake; alert and oriented x4; cranial nerves II-XII grossly intact; no focal sensory or motor deficits SKIN: warm, dry, normal color; no rashes Course Quality Measures none Orders Category Date Time Status Patient Condition Routine Admission 10/17/24 16:33 Ordered Mechanical Supervisor NOW Care 10/17/24 10:13 Active EKG (ED ONLY) *Do not use* NOW Care 10/17/24 10:13 Completed In and Out Catheter X1 Care 10/17/24 12:38 Completed Intake and Output QSHIFT Care 10/17/24 16:45 Ordered Miscellaneous Nursing Order NOW Care 10/17/24 16:33 Active Notify provider NEEDED Care 10/17/24 16:33 Active Obtain weight NOW Care 10/17/24 16:33 Active Sequential Compression Device QSHIFT Care 10/17/24 16:[address] abdomen pelvis wo con Stat Exams 10/17/24 12:13 Completed EKG (ED Only) Stat Exams 10/17/24 10:13 Draft XR chest 1V portable Stat Exams 10/17/24 10:13 Completed B-Type Natriuretic Peptide Stat Lab 10/17/24 10:32 Completed Blood Culture (Lab) Stat Lab 10/17/24 10:32 Received CBC AM DRAW Lab 10/18/24 05:00 Ordered CBC AM DRAW Lab 10/19/24 05:00 Ordered CBC AM DRAW Lab 10/20/24 05:00 Ordered CBC Stat Lab 10/17/24 10:32 Completed Comprehensive Metabolic Panel Stat Lab 10/17/24 10:32 Completed Lactate (Lactic Acid) Stat Lab 10/17/24 10:32 Completed Lipase Stat Lab 10/17/24 10:32 Completed Lipid Panel AM DRAW Lab 10/18/24 05:00 Ordered MRSA Nasal Screen Routine Lab 10/17/24 16:33 Ordered Magnesium AM DRAW Lab 10/18/24 05:00 Ordered Magnesium Stat Lab 10/17/24 10:32 Completed Partial Thromboplastin Time Stat Lab 10/17/24 10:32 Completed Phosphorous AM DRAW Lab 10/18/24 05:00 Ordered Procalcitonin Stat Lab 10/17/24 10:32 Completed Prothrombin Time with INR AM DRAW Lab 10/18/24 05:00 Ordered Prothrombin Time with INR Stat Lab 10/17/24 10:32 Completed Troponin I Stat Lab 10/17/24 10:32 Completed UA, C/S IF [Urinalysis, C/S if Indicated] Stat Lab 10/17/24 12:38 Completed Urinalysis Routine Lab 10/17/24 16:33 Ordered Acetaminophen Tab [Tylenol Tab] Med 10/17/24 16:33 Active 650 mg PO Q6H PRN Dextrose 50% Syr [D50w Syringe Abboject] Med 10/17/24 15:43 Discontinued 50 ml IVP X1 ONE Morphine Inj Med 10/17/24 10:51 Discontinued 3 mg IVP X1 ONE Ondansetron Inj [Zofran Inj] Med 10/17/24 16:33 Active 4 mg IV Q6H PRN Ondansetron Inj [Zofran Inj] Med 10/17/24 10:51 Discontinued 4 mg IVP X1 ONE Pantoprazole Inj [Protonix Inj] Med 10/17/24 10:51 Discontinued 80 mg IVP X1 ONE Pantoprazole/Ns 80Mg IV Premix [Protonix/NS 80mg IV Med 10/17/24 10:52 Active Premix] 80 mg in 100 ml IV X1 Piper/Tazo 3.375 gm Premix [Zosyn] Med 10/17/24 15:14 Discontinued 3.375 gm in 50 ml IV X1 Senna [Senokot] Med 10/17/24 16:33 Active 2 tab PO BID PRN Sodium Chloride 0.9% 1000 ml [Ns] 1,000 ml Med 10/17/24 15:14 Discontinued IV 999 mls/hr Code Status Routine Oth 10/17/24 16:33 Ordered Oxygen Delivery DAILY RT 10/17/24 16:33 Active Vital Signs Vital signs: Vital Signs Temperature 100.2 F 10/17/24 10:07 Pulse Rate 124 H 10/17/24 10:07 Respiratory Rate 18 10/17/24 10:07 Blood Pressure 127/70 10/17/24 10:07 Pulse Oximetry (%) 95 10/17/24 10:07 Oxygen Delivery Method Nasal Cannula 10/17/24 10:07 Oxygen Flow Rate 6 10/17/24 10:07 Nausea/Vomiting/Diarrhea MDM Narrative MDM Narrative:: Kari Dunn am scribing for and in the presence of Dr. Aguirre. Patient data External records reviewed:: [facility] previous records (I reviewed admission from 07/24/2024 through 07/31/2024) and EMS form Clinical information provided by:: patient and EMS Social determinants that could affect healthcare access:: none Patient has the following chronic illnesses:: pacemaker placement, hypertension, diabetes, hyperlipidemia, hepatocellular disease, anemia How is presenting disease/condition affected by chronic disease/condition?: exacerbated by Evaluation data The following diagnostics were reviewed and interpreted by me:: lab results, radiology exam(s) and EKG tracing(s) (10/17/2024 @ 10:25 AM. Ectopic atrial tachycardia, rate 130, intraventricular conduction delay. ) Lab and/or radiology exams considered but not ordered:: None Interpretation Summary: Ordering Physician: Cassie Aguirre MD Date of Service: 10/17/24 Procedure(s): XR chest 1V portable Accession Number(s): [id number] cc: Mauro Castillo MD; Zachary Crowley MD; Cassie Aguirre MD~ Examination: AP chest single view TECHNIQUE: Portable upright AP chest single view Date and time: October 17, 2024 1044 hours Comparison July 24, 2024 INDICATIONS: Chest pain shortness of breath today. FINDINGS: Mild chronic heart failure pattern Moderate enlargement cardiac contour Prominent vascular congestion. No lobar pneumonia. Stable position cardiac leads IMPRESSION: Mild chronic heart failure pattern Dictated By:Zachary Crowley MD Signed By:<Electronically signed by Zachary Crowley MD in OV>10/17/24 1114 Ordering Physician: Cassie Aguirre MD Date of Service: 10/17/24 Procedure(s): CT abdomen pelvis wo [facility] Accession Number(s): [id number] cc: Mauro Castillo MD; Zachary Crowley MD; Cassie Aguirre MD~ Examination: CT abdomen and pelvis without contrast. Coronal 3-D reconstructions. Sagittal 2-D reconstructions. Date and time of exam:October 17, 2024 1218 hours Comparison July 24, 2024 INDICATIONS: Generalized abdominal pain with nausea vomiting beginning this morning CTDI: vol (mGy): 13.3 DLP: (mGycm): 709 Technique: Axial images of the abdomen have been obtained, 3 mm slice thickness Intravenous contrast material has not been administered. Low dose protocols were performed. One or more of the following dose reduction techniques were used; automated exposure control, adjustment of the mA and/or KV according to patient size, use of iterative reconstruction technique. Findings: Moderate enlargement cardiac contour with prominent vascular congestion and pneumonia left base Anasarca Liver nodular in contour, cirrhosis no focal liver lesions Gallstones Pneumoperitoneum Mild ascites Multiple fluid distended small bowel loops Urinary bladder intact Atrophic uterus Severe osteopenia Advanced narrowing hip joints IMPRESSION: Cirrhosis Anasarca Cholelithiasis Multiple fluid distended small bowel loops with pneumoperitoneum, differential would include ischemic small bowel, recommend surgical consultation Dictated By:Zachary Crowley MD Signed By:<Electronically signed by Zachary Crowley MD in OV>10/17/24 1327 Medications / Prescriptions Medications / Prescriptions considered but not ordered:: None Medication administrations:: Medication Administration History Acetaminophen (Acetaminophen 325 Mg Tablet) 650 mg PO Q6H PRN PRN Reason: PAIN OR FEVER > 101 Stop: 11/16/24 16:32 Pantoprazole Sodium (Protonix/Ns 80mg Iv Premix) 80 mg in 100 mls @ 10 mls/hr IV X1 ONE Stop: 10/17/24 20:51 Last Admin: 10/17/24 11:05 Dose: 10 mls/hr Documented By: CHRIS Ondansetron HCl (Ondansetron Inj 2 Mg/Ml Inj 2 Ml) 4 mg IV Q6H PRN; Protocol PRN Reason: NAUSEA OR VOMITING Stop: 11/16/24 16:32 Sennosides (Senna Tablet) 2 tab PO BID PRN; Protocol PRN Reason: CONSTIPATION Stop: 11/16/24 16:32 Discontinued Medications Dextrose (Dextrose 50%-Water Inj 50 Ml Syringe) 50 ml IVP X1 ONE Stop: 10/17/24 15:44 Last Admin: 10/17/24 15:48 Dose: 50 ml Documented By: CHRIS Sodium Chloride (Ns) 1,000 mls @ 999 mls/hr IV .Q1H1M ONE Stop: 10/17/24 16:14 Last Admin: 10/17/24 15:15 Dose: 999 mls/hr Documented By: CHRIS Piperacillin/Tazobactam/Dextrose (Zosyn) 3.375 gm in 50 mls @ 100 mls/hr IV X1 ONE Stop: 10/17/24 15:43 Last Admin: 10/17/24 15:35 Dose: 100 mls/hr Documented By: CHRIS Morphine Sulfate (Morphine Sulf Inj 10 Mg/Ml Vial) 3 mg IVP X1 ONE Stop: 10/17/24 10:52 Last Admin: 10/17/24 11:04 Dose: 3 mg Documented By: CHRIS Ondansetron HCl (Ondansetron Inj 2 Mg/Ml Inj 2 Ml) 4 mg IVP X1 ONE Stop: 10/17/24 10:52 Last Admin: 10/17/24 11:03 Dose: 4 mg Documented By: CHRIS Pantoprazole Sodium (Pantoprazole Inj 40 Mg Vial) 80 mg IVP X1 ONE Stop: 10/17/24 10:52 Last Admin: 10/17/24 11:04 Dose: 80 mg Documented By: KM See above Consultations Consultation(s) initiated? (list below): Yes Consultation #1 (Physician, Specialty, Details): I spoke with radiologist Dr. Crowley regarding CT results. Time: 13:25 Consultation #2 (Physician, Specialty, Details): I spoke with surgeon Dr. Chilel. Discussed patients PMHx, HPI, ED course, exam findings, labs, and radiology results. Will come evaluate the patient in the ED. Time: 13:28 Consultation #3 (Physician, Specialty, Details): I again spoke with surgeon Dr. Chilel. She recommends admission to medicine team. Time: 15:13 Diagnosis Nausea Differential Diagnosis: gastroenteritis, drug-induced nausea and vomiting, dehydration and other (GIB ) Most likely diagnosis given after review of the tests above:: Bowel perforation Admission Indicated Admission indicated?: indicated Admission Request Was there a request for admission?: Yes Admission Attestation Admission request attestation: Discussed case with [] from Hospitalist service regarding admission. Discussed patients ED course, exam findings, labs, and radiology results. The Hospitalist [agrees,declines] to accept the patient for admission. Disposition Plan Disposition Plan: Admit Discharge Plan Plan Patient Disposition: Admit Acute Care w/in Hospital Prescriptions/Referrals Prescriptions/Med Rec: No Action lovastatin 20 mg Tablet 20 mg PO HS fluticasone propionate 50 mcg/actuation spray,suspension 1 spray INTRANASAL QDAY Patient Comments: USE 1 SPRAY EN CADA PORO DE LA NARIZ TODOS LOS D ferrous sulfate 325 mg (65 mg iron) tablet 325 mg PO BID Patient Comments: TOME 1 TABLETA POR V A ORAL DOS VECES AL D A carvedilol 6.25 mg tablet 6.25 mg PO BID Patient Comments: TOME 1 TABLETA POR V A ORAL DOS VECES AL D A CON ALIMENTO cyanocobalamin (vitamin B-12) [Vitamin B-12] 500 mcg tablet 500 mcg PO QDAY spironolactone 25 mg Tablet 50 mg PO HS Qty: 30 0RF bumetanide 2 mg tablet 2 mg PO QDAY Qty: 30 0RF pantoprazole 40 mg Tablet,Delayed Release (Dr/Ec) 40 mg PO PRN PRN (Reason: heart burn or gastritis) Qty: 30 0RF Jardiance 10 mg tablet 10 mg PO QAM Qty: 30 0RF Referrals: Mauro Castillo MD [Primary Care Provider] - In 1 week Problem List Clinical Impression: Bowel perforation Patient/Caregiver Discharge Instructions Print Language: Togolese Stand Alone Forms: Janet Award Info., Patient Portal Info Letter
--- NOTE | 2024-10-17 12:13 | XR_ITS ---
Examination: CT abdomen and pelvis without contrast. Coronal 3-D reconstructions. Sagittal 2-D reconstructions. Date and time of exam:October 17, 2024 1218 hours Comparison July 24, 2024 INDICATIONS: Generalized abdominal pain with nausea vomiting beginning this morning CTDI: vol (mGy): 13.3 DLP: (mGycm): 709 Technique: Axial images of the abdomen have been obtained, 3 mm slice thickness Intravenous contrast material has not been administered. Low dose protocols were performed. One or more of the following dose reduction techniques were used; automated exposure control, adjustment of the mA and/or KV according to patient size, use of iterative reconstruction technique. Findings: Moderate enlargement cardiac contour with prominent vascular congestion and pneumonia left base Anasarca Liver nodular in contour, cirrhosis no focal liver lesions Gallstones Pneumoperitoneum Mild ascites Multiple fluid distended small bowel loops Urinary bladder intact Atrophic uterus Severe osteopenia Advanced narrowing hip joints IMPRESSION: Cirrhosis Anasarca Cholelithiasis Multiple fluid distended small bowel loops with pneumoperitoneum, differential would include ischemic small bowel, recommend surgical consultation
--- NOTE | 2024-10-17 12:22 | PC.LAC ---
Patient gone to ct via [facility].
[2024-10-17 12:47] LABS: Collection Type, Urine Catheter
[2024-10-17 13:13] LABS: Bilirubin,Urine Negative (Negative); Blood,Urine Negative (Negative); Clarity,Urine Clear (Clear/Hazy); Color,Urine Lt-Yellow (Lt Yel-Yel); Culture Indicated,Urine Not Indicated; Glucose, Urine 2+ (Negative); Ketones,Urine Negative (Negative); Leukocyte Esterase,Urine Negative (Negative); Nitrite,Urine Negative (Negative); PH,Urine 7.0 (5.0-7.0); Protein,Urine Negative (Neg - Trace); RBC,Urine 1 /hpf (0-3); Specific Gravity,Urine 1.007 (1.001-1.035); Squamous Epithelial Cell,Urine 2 /hpf (0-5); Urobilinogen,Urine Negative mg/dL (0.0-1.0); WBC,Urine 1 /hpf (0-5)
--- NOTE | 2024-10-17 14:18 | PC.NURSE ---
Dr. Maher at bedside to evaluate patient.
--- NOTE | 2024-10-17 14:50 | PD.SURCONS ---
HPI Consult details History of present illness: Spoke to pt and with in-person desk clerk 84F with HTN, HLD, cirrhosis, CKD stage III, CHF, PPM and anasarca causing her to be bedbound who presented to ER with abdominal pain and vomiting. Pt states she began having pain last night that was severe in her upper abdomen, she has never had similar pain and she also had episodes of vomiting. Her last meal was last night. In ER she is noted to be tachycardic and hypotensive, and CT AP without contrast shows drops of peritoneum without clear etiology as well as sequelae of cirrhosis including mild ascites Pt states she has not been diagnosed with any gastric ulcer in the past PMH: HTN, HLD, cirrhosis, CKD, CHF, PPM, anasarca PSHx: PPM, Csection Meds: No antiplt or anticoagulation Allergies: includes ASA, marysol seltzer, chlorpheniramine, diphenhydramine, guaifenesin, phenylpropanolamine, salicylates Social hx: lives at a NH, is bedbound due to anasarca, per is usually A&Ox3 Review of Systems Review of Systems ROS Unobtainable: unobtainable due to mental status Meds Home Medications and Allergies Home Medications ?Medication ?Instructions ?Recorded ?Confirmed ?Type lovastatin 20 mg tablet 20 mg PO HS 06/21/17 07/25/24 History fluticasone propionate 50 1 spray intranasal QDAY 04/30/22 04/30/22 History mcg/actuation nasal spray,suspension carvedilol 6.25 mg tablet 6.25 mg PO BID 07/25/24 07/25/24 History cyanocobalamin (vitamin B-12) 500 500 mcg PO QDAY 07/25/24 07/25/24 History mcg tablet (Vitamin B-12) ferrous sulfate 325 mg (65 mg 325 mg PO BID 07/25/24 07/25/24 History iron) tablet Allergies Allergy/AdvReac Type Severity Reaction Status Date / Time aspirin Allergy Severe SWELLING Verified 07/24/24 14:26 TO LIPS chlorpheniramine Allergy Severe UNKNOWN Verified 07/24/24 14:26 PER PT diphenhydramine Allergy Severe SWELLING Verified 07/24/24 14:26 TO LIPS guaifenesin Allergy Severe UNKNOWN Verified 07/24/24 14:26 phenylpropanolamine Allergy Severe SWELLING Verified 07/24/24 14:26 TO LIPS Salicylates Allergy Severe SWELLING Verified 07/24/24 14:26 TO LIPS Exam Vital Signs Temp Pulse Resp BP Pulse Ox O2 Del Method O2 Flow Rate 99.3 F 125 H 24 H 111/65 94 L Nasal Cannula 4 10/17/24 12:39 10/17/24 12:39 10/17/24 12:39 10/17/24 12:39 10/17/24 12:39 10/17/24 12:39 10/17/24 12:39 Constitutional Constitutional: chronically ill appearing and somnolent Routine Respiratory Exam Respiratory: Present no resp distress and other (with nasal cannula in place) Routine Abdominal Exam Abdominal: Present soft (majority of abdomen is soft except for firmness near umbilicus), tenderness (moderate periumbilical tenderness), distended and firm; Absent rigid Results Results: Laboratory Laboratory results: results reviewed Results: Imaging CT scan - abdomen: report reviewed and image reviewed Assessment & Plan Plan 84F with HTN, HLD, cirrhosis, CKD stage III, CHF, PPM and anasarca causing her to be bedbound who presented to ER with abdominal pain and vomiting that began last night, with findings of pneumoperitoneum on CT AP. I spoke to her regarding the possibility of surgery but he requested I speak to their daughter which I did using a certified phone desk clerk; I explained that per ACS NSQIP risk calculator, surgery carries an 80% risk of serious complication and 72% risk of . Unfortunately pt has a high risk of with or without surgery, but daughter ultimately prefers to minimize suffering and agrees with foregoing surgical intervention. I will recommend NPO, IV abx with an NG as needed for nausea/vomiting
[2024-10-17] MEDS: SODIUM CHLORIDE 0.9% 1000 ML 1,000 ML 999 ML IV (15:15)
--- NOTE | 2024-10-17 15:15 | PC.OT ---
Per Dr. Aguirre states she will call Dr. Maher and inform her of patients status and will attempt to get patient admitted to hospital, by hospitalists
--- NOTE | 2024-10-17 15:23 | PC.NURSE ---
Dr. Maher at bedside trying to contact patient's daughter Sarahi regarding plan of care.
[2024-10-17] MEDS: PIPER/TAZO 3.375 GM PREMIX 3.375 GM/50 ML BAG IV ×2 (15:35→22:16)
--- NOTE | 2024-10-17 15:37 | PC.NURSE ---
Dr. Maher at bedside spoke with patient's daughter Sarahi and per Dr. Maher does not want her mother to have surgery will treat patient and admit to hospital.
--- NOTE | 2024-10-17 15:44 | PC.NURSE ---
Dr. Thrasher made aware, patient FSBS 69, new orders received.
[2024-10-17] MEDS: DEXTROSE 50%-WATER INJ 50 ML SYRINGE IVP (15:48)
--- NOTE | 2024-10-17 16:49 | PD.RESHP ---
Documentation for date of: 10/17/24 [facility] History of Present Illness History of present illness: Patient is an 84-year-old female with a past medical history of cirrhosis, CKD stage III/IV, CHF, mitral regurgitation, Pulmonary hypertension, Atrial Fibrillation s/p pacemaker, hypertension, hyperlipidemia, history of GI bleed, who was brought into the emergency room after sudden onset abdominal pain and coffee-ground emesis starting last night. The patient had multiple episodes of dark brown emesis with pink tinge, reported sever abdominal pain, generalised pain and tenderness. at the bedside contributed to the history, who stated that the patient has been on treatment for cirrhosis and CHF, including diuretics, but wasn't able to tolerate antiplatelet due to GI bleeding. The patinet denied any melena, hematochezia, chest pain or syncope. In the ED, initial vitals BP 127/70, temperature 100.2, saturating 95% on 4W, O2, monitor blood pressure dropped to ,89/57, though MAP> 65, patient received 1 L IV fluid, initial CT scan abdomen pelvis showed pneumoperitoneum, left base pneumonia, cirrhosis and anasarca, cholelithiasis. Differentials were pneumoperitoneum which included ischemic small bowel, surgical consultation was recommended, general surgeon Dr. Chilel evaluated the patient, spoke to patient's and daughter Sarahi about risks and benefits of surgery, explained to family about poor prognosis if patient is taken to the OR over 70% risk of mortality 80% risk of complications.. Family decided against proceeding with surgery, but continuing medical management. Patient will be admitted to medical floor for further observation and management. Past medical Hx: cirrhosis, CKD stage III/IV, CHF, mitral regurgitation, Atrial Fibrillation s/p pacemaker, hypertension, hyperlipidemia, history of GI bleed SHX: 1 section, s/p pacemaker x 2 Social history: Never smoker, alcohol or any illicit drug use Medications: To be reconciled Allergies: Aspirin-swelling to lips, chlorpheniramine-unknown, diphenhydramine-swelling to lips, guaifenesin-unknown, phenylpropanolamine-swelling to lips, salicylates-swelling to lips Review of Systems Review of Systems Systems Reviewed: All systems reviewed, normal except as documented Past Medical History Past Medical History NEUROLOGIC: Negative Neurological Disorders or Seizures CARDIAC: Positive Cardiac Disorders, Hypercholesterolemia, Congestive Heart Failure and Hypertension RESPIRATORY: Negative Chronic Obstructive Pulmonary Disease (COPD) GASTROINTESTINAL: Negative Gastrointestinal Disorders GENITOURINARY: Negative Genitourinary Disorders or Renal Disease MUSCULOSKELETAL: Negative Musculoskeletal Disorders ENT: Positive Cataracts ENDOCRINE: Positive Endocrine Disorders and Diabetes Mellitus Type 2; Negative Diabetes Mellitus Type 1 HEMATOLOGIC: Positive Blood Disorders and Anemia OTHER HISTORY: Positive Chicken Pox, Measles and Mumps; Negative Hospitalization, Autoimmune Disease, Down Syndrome, Developmental Delay, Falls, Blood Transfusions, Blood Transfusion Reaction, Anesthesia Reactions or Cancer Surgical History SURGICAL: Positive Pacemaker Social History SMOKING STATUS: Never smoker SECOND HAND EXPOSURE: No SUBSTANCE USE: does not use Exam Vital Signs Temp Pulse Resp BP Pulse Ox O2 Del Method O2 Flow Rate 98.9 F 103 H 17 108/82 5 L Nasal Cannula 4 10/17/24 16:22 10/17/24 16:22 10/17/24 16:22 10/17/24 16:22 10/17/24 16:22 10/17/24 16:22 10/17/24 16:22 Narrative Exam General: Awake. in moderate distress due to pain, HEENT: Normocephalic, atraumatic, mucous membranes moist. 4+ pitting edema lower extremitites. Heart: Regular rate and rhythm, pansystolic murmur heard in mitral and tricuspid area. Pacemaker noted Lungs: Clear to auscultation with no wheezing or crackles. Abdomen: moderately distended, tender, positive bowel sounds. ?No guarding or rebound tenderness. Neurologic: Alert and oriented x3, no gross neurological deficit, and patient able to move all 4 extremities. Extremities: Bilateral lower extremity edema extending up to the upper abdomen Skin: noted telangiectesia/spider angiomas upper chest. Results: Labs 10/17/24 10:32 10/17/24 10:32 Labs: Short CBC 10/17/24 Range/Units 10:32 WBC 5.0 (3.6-11.0) Thou/mm3 Hgb 10.3 L (12.0-16.0) g/dL Hct 29.9 L (36.0-46.0) % Plt Count 201 (140-440) Thou/mm3 BMP 10/17/24 10:32 Sodium 140 Potassium 3.8 Chloride 105 Carbon Dioxide 25.8 BUN 37 H Creatinine 2.3 H Glucose 104 Calcium 8.8 Cardiac Enzymes 10/17/24 Range/Units 10:32 Troponin I 0.022 (0.0-0.045) ng/mL Liver Function 10/17/24 Range/Units 10:32 Total Bilirubin 4.8 H (0.3-1.2) mg/dL AST 26 (0-34) U/L ALT 15 (10-49) U/L Alkaline Phosphatase 258 H (46-116) U/L Albumin 3.4 (3.4-4.8) gm/dL Urine 10/17/24 Range/Units 12:38 Urine Color Lt-Yellow (Lt Yel-Yel) Urine Clarity Clear (Clear/Hazy) Urine pH 7.0 (5.0-7.0) Ur Specific [place] 1.007 (1.001-1.035) Urine Protein Negative (Neg - Trace) Urine Glucose (UA) 2+ A (Negative) Quality Measures Quality Measures none Advance care planning discussed with:: patient Medications Home Medications and Allergies Home Medications ?Medication ?Instructions ?Recorded ?Confirmed ?Type lovastatin 20 mg tablet 20 mg PO HS 06/21/17 10/18/24 History fluticasone propionate 50 1 spray intranasal QDAY 04/30/22 10/18/24 History mcg/actuation nasal spray,suspension carvedilol 6.25 mg tablet 6.25 mg PO BID 07/25/24 10/18/24 History cyanocobalamin (vitamin B-12) 500 500 mcg PO QDAY 07/25/24 10/18/24 History mcg tablet (Vitamin B-12) ferrous sulfate 325 mg (65 mg 325 mg PO BID 07/25/24 10/18/24 History iron) tablet artificial tears solution eye drops 1 drp ophthalmic (eye) [id number] PRN 10/18/24 10/18/24 History dry eye(s) bisacodyl 10 mg rectal suppository [address] QDAY PRN constipation 10/18/24 10/18/24 History (Dulcolax (bisacodyl)) bumetanide 2 mg tablet 2 mg PO BID 10/18/24 10/18/24 History cholecalciferol (vitamin D3) 125 5,000 unit PO QDAY 10/18/24 10/18/24 History mcg (5,000 unit) tablet empagliflozin 10 mg tablet 10 mg PO QAM 10/18/24 10/18/24 History (Jardiance) magnesium hydroxide 400 mg/5 mL 30 ml PO Q72H PRN constipation 10/18/24 10/18/24 History oral suspension ondansetron 4 mg disintegrating 4 mg PO Q6H PRN nausea and vomiting 10/18/24 10/18/24 History tablet potassium chloride 20 mEq oral 10 meq PO BID 10/18/24 10/18/24 History packet (Klor-Con) sodium phosphates 19 gram-[address] QDAY PRN constipation 10/18/24 10/18/24 History gram/118 mL enema (Fleet Enema) spironolactone 25 mg tablet 50 mg PO DAILY 10/18/24 10/18/24 History vitamin B complex-vitamin C-folic 1 tab PO QDAY 10/18/24 10/18/24 History acid 0.8 mg tablet Allergies Allergy/AdvReac Type Severity Reaction Status Date / Time aspirin Allergy Severe SWELLING Verified 07/24/24 14:26 TO LIPS chlorpheniramine Allergy Severe UNKNOWN Verified 07/24/24 14:26 PER PT diphenhydramine Allergy Severe SWELLING Verified 07/24/24 14:26 TO LIPS guaifenesin Allergy Severe UNKNOWN Verified 07/24/24 14:26 phenylpropanolamine Allergy Severe SWELLING Verified 07/24/24 14:26 TO LIPS Salicylates Allergy Severe SWELLING Verified 07/24/24 14:26 TO LIPS Visit Medications Acetaminophen (Acetaminophen 325 Mg Tablet) 650 mg PO Q6H PRN PRN Reason: PAIN OR FEVER > 101 Stop: 11/16/24 16:32 Hydromorphone HCl (Hydromorphone Inj 2 Mg/Ml Vial) 0.25 mg IVP Q4HR PRN PRN Reason: PAIN Stop: 10/22/24 16:47 Pantoprazole Sodium (Protonix/Ns 80mg Iv Premix) 80 mg in 100 mls @ 10 mls/hr IV X1 ONE Stop: 10/17/24 20:51 Last Admin: 10/17/24 11:05 Dose: 10 mls/hr Piperacillin/Tazobactam/Dextrose (Zosyn) 3.375 gm in 50 mls @ 12.5 mls/hr IV Q8HR [id number] Stop: 10/24/24 21:59 Ondansetron HCl (Ondansetron Inj 2 Mg/Ml Inj 2 Ml) 4 mg IV Q6H PRN; Protocol PRN Reason: NAUSEA OR VOMITING Stop: 11/16/24 16:32 Pharmacy Consult (Pharmacy Renal Dose Adjustment 1 Ea) 1 each XX PRN PRN PRN Reason: CONSULT Stop: 11/16/24 16:46 Sennosides (Senna Tablet) 2 tab PO BID PRN; Protocol PRN Reason: CONSTIPATION Stop: 11/16/24 16:32 Discontinued Medications Dextrose (Dextrose 50%-Water Inj 50 Ml Syringe) 50 ml IVP X1 ONE Stop: 10/17/24 15:44 Last Admin: 10/17/24 15:48 Dose: 50 ml Sodium Chloride (Ns) 1,000 mls @ 999 mls/hr IV .Q1H1M ONE Stop: 10/17/24 16:14 Last Admin: 10/17/24 15:15 Dose: 999 mls/hr Piperacillin/Tazobactam/Dextrose (Zosyn) 3.375 gm in 50 mls @ 100 mls/hr IV X1 ONE Stop: 10/17/24 15:43 Last Admin: 10/17/24 15:35 Dose: 100 mls/hr Morphine Sulfate (Morphine Sulf Inj 10 Mg/Ml Vial) 3 mg IVP X1 ONE Stop: 10/17/24 10:52 Last Admin: 10/17/24 11:04 Dose: 3 mg Ondansetron HCl (Ondansetron Inj 2 Mg/Ml Inj 2 Ml) 4 mg IVP X1 ONE Stop: 10/17/24 10:52 Last Admin: 10/17/24 11:03 Dose: 4 mg Pantoprazole Sodium (Pantoprazole Inj 40 Mg Vial) 80 mg IVP X1 ONE Stop: 10/17/24 10:52 Last Admin: 10/17/24 11:04 Dose: 80 mg Assessment & Plan Plan Patient is an 84-year-old female with a past medical history of cirrhosis, CKD stage III/IV, CHF, mitral regurgitation, Pulmonary hypertension, Atrial Fibrillation s/p pacemaker, hypertension, hyperlipidemia, history of GI bleed, who was brought into the emergency room after sudden onset abdominal pain and coffee-ground emesis starting last night. The patient had multiple episodes of dark brown emesis with pink tinge, reported sever abdominal pain, generalised pain and tenderness. at the bedside contributed to the history, who stated that the patient has been on treatment for cirrhosis and CHF, including diuretics, but wasn't able to tolerate antiplatelet due to GI bleeding. The patinet denied any melena, hematochezia, chest pain or syncope. #Goals of care: General surgeon Dr. Chilel evaluated the patient, spoke to patient's and daughter Sarahi about risks and benefits of surgery, explained to family about poor prognosis if patient is taken to the OR over 70% risk of mortality 80% risk of complications. Family decided against proceeding with surgery, but continuing medical management. We spoke to the patient's daughter Sarahi over the phone, who was adamant that patient stays full code and received full medical treatment. Patient will be admitted to medical floor for further observation and management. #Sepsis secondary to- #Pneumoperitoneum, concern for ischemic bowel versus perforation #Pneumonia The patient has multiple organ dysfunction including acute kidney injury as well as acute hypoxic respiratory failure in the setting of pneumonia and the most concerning pneumoperitoneum differential diagnosis include ischemic bowel versus perforation. Patient has history of atrial fibrillation but was not on anticoagulation due to GI bleed, concern for thromboembolic event. ? General Surgery consulted Dr. Maher was placed, recommended against surgical procedure due to high morbidity and mortality ? IV Zosyn, renally dosed for intra-abdominal cause of sepsis ? Blood cultures ordered ? Given 1 L IV fluid bolus, holding off on further fluid boluses due to anasarca and CHF ? NG tube placement with suction #BLAKE on CKD stage III 4 BLAKE on CKD baseline creatinine seems to be around 2.0, GFR 24, no decrease in GFR 21, likely in the setting of sepsis. ? Renally dose antibiotic, Zosyn ? Will consider nephrology consult if no improvement in renal function #GI bleed Presented with coffee-ground emesis, history of cirrhosis at risk for variceal bleed, holding off on octreotide in the setting of pneumoperitoneum and bowel ischemia as a possible differential diagnosis. ? Gastroenterology consult was placed, appreciate recommendations ? IV Protonix loading dose given, Protonix drip started, transition to twice daily ? Monitor daily CBC, transfuse if hemoglobin less than 7 #Acute hypoxic respiratory failure #History of pulmonary hypertension Likely in the setting of pneumonia as well as history of pulmonary hypertension and CHF, poor candidate for surgery. ? Supplemental oxygen as needed ? IV antibiotic for pneumonia #History of A-fib #History of mitral regurgitation #History of CHF ? Cardiology consult Dr. Leos was placed, appreciate recommendations ? Holding off on anticoagulation/antiplatelets as patient has GI bleed risk of hemodynamic collapse. ? Holding off diuretics at this point as patient's blood pressure in the 80s. Disposition: Poor candidate for surgery, on IV antibiotics, will revisit goals of care discussion if no improvement in clinical situation. DVT prophylaxis: SCD GI prophylaxis: Protonix Diet: N.p.o., NG tube Lines: PIV CODE STATUS: Full Plan of care discussed with attending Dr. Masha Thrasher [id number] Attending Provider Attestation/Addendum I have discussed and was present for the essential components of the history, physical examination, diagnosis, and treatment plan with the resident. I agree with the patient's care as documented by the resident and amended herein by me. Bob Flanagan, DO. Although this document has been carefully reviewed, there may still be some phonetic and other typographical errors. These errors are purely grammatical due to imperfections in the software program and should not be construed in any way to compromise the substance of the patient's medical care during this visit.
--- NOTE | 2024-10-17 16:50 | PC.CC ---
Patient is an 84 year old female who presents to the Emergency Department for Altered Mental Status. ACSW Kayla and [employer] student Vesna introduced self, role reason for visit. Limits of confidentiality were discussed. Patient appears to be alert and oriented to self, location and situation. Patient was pleasant and engaged in initial assessment. Patient confirmed information on demographics. Patient named her daughter Sarahi Nelson ([phone]) as her surrogate decision maker. Patient is currently residing at [facility] where staff assist wither ADL's. She uses a walker to ambulate. Her primary care provider is Mauro Castillo and her pharmacy of preference is [facility] on [address]. Upon discharge patient is to return to [facility]. No other needs identified at this time and academic services professional to remain available to address further concerns.
[2024-10-17] MEDS: ALBUMIN HUMAN 25% IVPB 25 GM/100 ML BTL IV (20:20)
--- NOTE | 2024-10-17 20:44 | PD.IMCONS ---
HPI Data of Consult Requesting Physician: Nico Flanagan DO Primary Care Provider: Mauro Castillo MD Consult Narrative Reason for consult: Pain abdomen, nausea vomiting, abnormal CTAP History of present illness: 84 years old female who is bedbound at home has a history of CKD stage III congestive heart failure anasarca presented to the hospital nausea vomiting and severe abdominal pain since last night CT scan of the abdomen pelvis shows pneumoperitoneum Patient has already been evaluated by surgery and is on IV antibiotic NGT suction as she is high risk for surgical intervention and the family has agreed with that approach cc:: cc: Nico Flanagan DO Review of Systems Review of Systems Systems Reviewed: All systems reviewed, normal except as documented Past Medical History Surgical History OTHER SURGICAL HX: As in the history of present illness Meds Home Medications and Allergies Home Medications ?Medication ?Instructions ?Recorded ?Confirmed ?Type lovastatin 20 mg tablet 20 mg PO HS 06/21/17 07/25/24 History fluticasone propionate 50 1 spray intranasal QDAY 04/30/22 04/30/22 History mcg/actuation nasal spray,suspension carvedilol 6.25 mg tablet 6.25 mg PO BID 07/25/24 07/25/24 History cyanocobalamin (vitamin B-12) 500 500 mcg PO QDAY 07/25/24 07/25/24 History mcg tablet (Vitamin B-12) ferrous sulfate 325 mg (65 mg 325 mg PO BID 07/25/24 07/25/24 History iron) tablet Allergies Allergy/AdvReac Type Severity Reaction Status Date / Time aspirin Allergy Severe SWELLING Verified 07/24/24 14:26 TO LIPS chlorpheniramine Allergy Severe UNKNOWN Verified 07/24/24 14:26 PER PT diphenhydramine Allergy Severe SWELLING Verified 07/24/24 14:26 TO LIPS guaifenesin Allergy Severe UNKNOWN Verified 07/24/24 14:26 phenylpropanolamine Allergy Severe SWELLING Verified 07/24/24 14:26 TO LIPS Salicylates Allergy Severe SWELLING Verified 07/24/24 14:26 TO LIPS Exam Vital Signs Temp Pulse Resp BP Pulse Ox O2 Del Method O2 Flow Rate 98.8 F 101 H 20 92/51 L 95 Nasal Cannula 4 10/17/24 18:10/17/24 18:40 10/17/24 18:10/17/24 18:25 10/17/24 18:25 10/17/24 16:22 10/17/24 16:22 Constitutional Comments: Chronically ill-appearing Routine Respiratory Exam Comments: Scattered rhonchi Routine Abdominal Exam Comments: Tender positive bowel sounds Results Labs 10/17/24 10:32 10/17/24 10:32 Labs: Short CBC 10/17/24 Range/Units 10:32 WBC 5.0 (3.6-11.0) Thou/mm3 Hgb 10.3 L (12.0-16.0) g/dL Hct 29.9 L (36.0-46.0) % Plt Count 201 (140-440) Thou/mm3 BMP 10/17/24 10:32 Sodium 140 Potassium 3.8 Chloride 105 Carbon Dioxide 25.8 BUN 37 H Creatinine 2.3 H Glucose 104 Calcium 8.8 Cardiac Enzymes 10/17/24 Range/Units 10:32 Troponin I 0.022 (0.0-0.045) ng/mL Liver Function 10/17/24 Range/Units 10:32 Total Bilirubin 4.8 H (0.3-1.2) mg/dL AST 26 (0-34) U/L ALT 15 (10-49) U/L Alkaline Phosphatase 258 H (46-116) U/L Albumin 3.4 (3.4-4.8) gm/dL Urine 10/17/24 Range/Units 12:38 Urine Color Lt-Yellow (Lt Yel-Yel) Urine Clarity Clear (Clear/Hazy) Urine pH 7.0 (5.0-7.0) Ur Specific [place] 1.007 (1.001-1.035) Urine Protein Negative (Neg - Trace) Urine Glucose (UA) 2+ A (Negative) Assessment and Plan Additional Assessment & Plan Additional Plan: # Pneumoperitoneum most likely perforated viscus CAT scan shows dilated loops of small bowel Patient high risk for surgical intervention Plan Agree with the conservative management With IV fluids antibiotics and NGT suction And broad-spectrum antibiotics # Cirrhosis liver with ascites and anasarca Complete workup ordered Will follow the patient Overall prognosis very poor Other medical problems include CKD stage III Congestive heart failure Thank you very much for the opportunity to participate in the care of this patient
--- NOTE | 2024-10-17 21:27 | XR_ITS ---
Examination: AP chest single view Technique portable AP sitting chest single view Date and time: October 17, 2024 2130 hours Comparison October 17, 2024 INDICATIONS: Post orogastric tube placement FINDINGS: Orogastric tube sidehole at the GE junction Moderate enlargement cardiac contour with prominent vascular congestion Subsegmental atelectasis at the right base Cardiac leads satisfactory position IMPRESSION: Chronic heart failure pattern. Advance the orogastric tube 7 cm
--- NOTE | 2024-10-17 22:46 | XR_ITS ---
Examination: AP chest single view TECHNIQUE: Portable sitting AP chest single view Date and time: October 17, 2024 2306 hours Comparison October 17, 2024 INDICATIONS: Post orogastric tube reposition FINDINGS: Orogastric tube in the stomach satisfactory position Again noted cardiomegaly with significant vascular congestion Cardiac leads satisfactory position IMPRESSION: Orogastric tube in the stomach satisfactory position
[2024-10-18] VITALS (10 sets, daily range): BP systolic 91–110; BP diastolic 57–75; PULSE 60–98; RESP 14–89; TEMP 35.9–36.6; O2SAT 94–97; BMI 30.9
[2024-10-18] MEDS: PIPER/TAZO 3.375 GM PREMIX 3.375 GM/50 ML BAG IV ×2 (05:28→20:29)
[2024-10-18 07:32] LABS: Alanine Aminotransferase 14 U/L (10-49); Albumin, Serum 3.2 gm/dL (3.4-4.8); Albumin/Globulin Ratio 0.9 (1.2-2.2); Alkaline Phosphatase 185 U/L (46-116); Anion Gap 10 (7-16); Aspartate Amino Transferase 32 U/L (0-34); BUN/Creatinine Ratio 16 Ratio (12-20); Bilirubin,Total 5.4 mg/dL (0.3-1.2); Blood Urea Nitrogen 38 mg/dL (9-23); Calcium 8.6 mg/dL (8.3-10.6); Calcium (Corrected) 9.2 mg/dL (8.5-10.1); Carbon Dioxide 24.8 mMol/L (20.0-31.0); Cardiac Risk Estimate 2.6 RATIO (3.7-5.6); Chloride 106 mMol/L (98-107); Cholesterol 96 mg/dL (132-200); Creatinine (Component) 2.4 mg/dL (0.6-1.3); Estimated Creatinine Clearance 19.1 mL/min (>60); Globulin 3.4 gm/dL (2.3-3.5); Glucose 70 mg/dL (74-106); HDL Cholesterol 37 mg/dL (40-60); LDL Cholesterol,Calculated 43 mg/dL (0-130); Magnesium 2.3 mg/dL (1.6-2.6); Osmolality,Calculated 288 (275-295); Phosphorous 4.9 mg/dL (2.4-5.1); Potassium 4.0 mMol/L (3.4-5.1); Sodium 141 mMol/L (136-145); Total Protein 6.6 gm/dL (5.7-8.2); Triglycerides 78 mg/dL (30-150); eGFR 20 See Note
[2024-10-18 07:34] LABS: Basophils # (Auto) 0.0 Thou/mm3 (0.0-0.2); Basophils % (Auto) 0 % (0-2.5); Eosinophils # (Auto) 0.0 Thou/mm3 (0.0-0.5); Eosinophils % (Auto) 0 % (0-10); Hematocrit 27.7 % (36.0-46.0); Hemoglobin 9.0 g/dL (12.0-16.0); Immature Granulocytes Auto 0.06 Thou/mm3 (0.00-0.00); Lymphocytes # (Auto) 0.9 Thou/mm3 (1.0-4.8); Lymphocytes % (Auto) 10 % (10-50); Mean Corpuscular HGB Conc 32.5 g/dl (31.0-37.0); Mean Corpuscular Hemoglobin 33.0 pg (25.0-35.0); Mean Corpuscular Volume 102 fL (80-100); Monocytes # (Auto) 0.6 Thou/mm3 (0.0-0.8); Monocytes % (Auto) 7 % (0-12); Neutrophils # (Auto) 7.3 Thou/mm3 (1.8-7.7); Neutrophils % (Auto) 82 % (37-80); Nucleated Red Blood Cell # 0.00 Thou/mm3 (0.00-0.00); Nucleated Red Blood Cell % 0 /100 WBC (0); Platelet Count 153 Thou/mm3 (140-440); RDW Standard Deviation 57.5 fL (36.4-46.3); Red Blood Count 2.73 Miln/mm3 (4.00-5.20); White Blood Count 8.9 Thou/mm3 (3.6-11.0)
[2024-10-18] MEDS: ALBUMIN HUMAN 25% IVPB 25 GM/100 ML BTL IV ×2 (08:32→20:28)
[2024-10-18 08:54] LABS: INR 1.3 (0.9-1.3); Prothrombin Time 14.1 Seconds (9.0-12.2)
--- NOTE | 2024-10-18 11:32 | PC.NURSE ---
Called to Dr. Hayes to make aware of glucose level 68 and request continuous maintenance fluid since pt. is NPO. Per Dr. Hayes I will call you back.
--- NOTE | 2024-10-18 11:35 | PC.NURSE ---
Per Dr. Rizzo do not give D50 PRN, i will order maintenance fluids D5 for pt. since pt. is NPO.
[2024-10-18] MEDS: DEXTROSE 5%-WATER 1,000 ML 75 ML IV (12:04)
[2024-10-18] MEDS: HYDROmorphone INJ 2 MG/ML VIAL 0.25 MG IVP (16:41)
--- NOTE | 2024-10-18 17:16 | PC.NURSE ---
Pt. family voiced concerns for pt. plan of care and considering hospice for patient and pt. agreeing. Pt. and family decide to have family meeting tomorrow at [address] Rizzo agrees and states I will let the rest of the team know.
--- NOTE | 2024-10-18 17:34 | ESPR_ITS ---
Documentation for date of: 10/18/24 Subjective Subjective Interval history: Patient evaluated bedside, laying in bed, tenderness on exam, abdominal NG tube attached to low intermittent suction, minimal output noted. Daughter Sarahi present at the bedside, we went over patient's clinical condition, general surgery evaluation, overall poor prognosis given multiple comorbidities. He per daughter, she will wait for her brothers and other family members to arrive, to come towards final decision regarding goals of care. Will have goals of care tomorrow. Exam Vital Signs Temp Pulse Resp BP Pulse Ox O2 Del Method O2 Flow Rate 97.9 F 98 16 110/75 96 Nasal Cannula 3 10/18/24 16:00 10/18/24 16:00 10/18/24 16:00 10/18/24 16:00 10/18/24 16:10/18/24 16:10/18/24 16:00 Narrative Exam General: Awake. in moderate distress due to pain, HEENT: Normocephalic, atraumatic, mucous membranes moist. 4+ pitting edema lower extremitites. Heart: Regular rate and rhythm, pansystolic murmur heard in mitral and tricuspid area. Pacemaker noted Lungs: Clear to auscultation with no wheezing or crackles. Abdomen: moderately distended, tender, positive bowel sounds. ?No guarding or rebound tenderness. Neurologic: Alert and oriented x3, no gross neurological deficit, and patient able to move all 4 extremities. Extremities: Bilateral lower extremity edema extending up to the upper abdomen Skin: noted telangiectesia/spider angiomas upper chest. Objective Labs 10/19/24 05:38 10/19/24 05:38 Labs: Laboratory Results - last 24 hr 10/18/24 06:04 WBC 8.9 D RBC 2.73 L Hgb 9.0 L Hct 27.7 L MCV 102 H MCH 33.0 MCHC 32.5 RDW Std Deviation 57.5 H Plt Count 153 D Neut % (Auto) 82 H Lymph % (Auto) 10 [place] % (Auto) 7 Eos % (Auto) 0 Baso % (Auto) 0 Neut # (Auto) 7.3 Lymph # (Auto) 0.9 L [place] # (Auto) 0.6 Eos # (Auto) 0.0 Baso # (Auto) 0.0 Immature Gran # (Auto) 0.06 H Absolute Nucleated RBC 0.00 Immature Gran % 1 H Nucleated RBC % 0 PT 14.1 H INR 1.3 Sodium 141 Potassium 4.0 Chloride 106 Carbon Dioxide 24.8 Anion Gap 10 BUN 38 H Creatinine 2.4 H Estim Creat Clear Calc 19.1 L eGFR 20 L BUN/Creatinine Ratio 16 Glucose 70 L Calculated Osmolality 288 Calcium 8.6 Corrected Calcium 9.2 Phosphorus 4.9 Magnesium 2.3 Total Bilirubin 5.4 H D AST 32 ALT 14 Alkaline Phosphatase 185 H D Total Protein 6.6 Albumin 3.2 L Globulin 3.4 Albumin/Globulin Ratio 0.9 L Triglycerides 78 Cholesterol 96 L LDL Cholesterol, Calc 43 HDL Cholesterol 37 L Cholesterol/HDL Ratio 2.6 L Quality Measures Quality Measures none Advance care planning discussed with:: patient Assessment & Plan Assessment Current Active Medications: Generic Name Dose Route Start Last Admin Trade Name Freq PRN Reason Stop Dose Admin Acetaminophen 650 mg 10/17/24 18:38 Acetaminophen 325 Mg Tablet PO 11/16/24 16:32 Q6H PRN PAIN OR FEVER > 101 Dextrose 25 ml 10/17/24 22:30 Dextrose 50%-Water Inj 50 Ml Syringe IV 11/16/24 22:29 Q15MIN PRN BG 50-70 responsive npo pt Dextrose 50 ml 10/17/24 22:30 Dextrose 50%-Water Inj 50 Ml Syringe IV 11/16/24 22:29 Q15MIN PRN BG <50 OR BG <70 & pt unresponsive Glucagon 1 mg 10/17/24 22:30 Glucagon Inj 1 Mg Vial IM Q15MIN PRN BG <70, and no IV access Hydromorphone HCl 0.25 mg 10/17/24 18:34 10/18/24 16:41 Hydromorphone Inj 2 Mg/Ml Vial IVP 10/22/24 16:47 0.25 mg Q4HR PRN Administration PAIN SCALE 4-10(Mod-Sev Albumin Human 25 gm in 100 mls @ 100 mls/hr 10/17/24 21:00 10/18/24 08:32 Albuminar-25 Ivpb IV 10/20/24 20:59 100 mls/hr BID SANJEEV Administration Dextrose 1,000 mls @ 75 mls/hr 10/18/24 11:45 10/18/24 12:04 D5w IV 11/17/24 11:44 75 mls/hr .[id number] SANJEEV Administration Piperacillin/Tazobactam/Dextrose 3.375 gm in 50 mls @ 12.5 mls/hr 10/18/24 21:00 Zosyn IV 10/24/24 21:59 Q12HR SANJEEV Ondansetron HCl 4 mg 10/17/24 16:33 Ondansetron Inj 2 Mg/Ml Inj 2 Ml IV 11/16/24 16:32 Q6H PRN NAUSEA OR VOMITING Protocol Pantoprazole Sodium 40 mg 10/17/24 21:00 10/18/24 08:32 Pantoprazole Inj 40 Mg Vial IVP 11/16/24 20:59 40 mg BID SANJEEV Administration Pharmacy Consult 1 each 10/17/24 16:47 Pharmacy Renal Dose Adjustment 1 Ea XX 11/16/24 16:46 PRN PRN CONSULT Sennosides 2 tab 10/17/24 16:33 Senna Tablet PO 11/16/24 16:32 BID PRN CONSTIPATION Protocol Plan #Sepsis secondary to- #Pneumoperitoneum, concern for ischemic bowel versus perforation #Pneumonia The patient has multiple organ dysfunction including acute kidney injury as well as acute hypoxic respiratory failure in the setting of pneumonia and the most concerning pneumoperitoneum differential diagnosis include ischemic bowel versus perforation. Patient has history of atrial fibrillation but was not on anticoagulation due to GI bleed, concern for thromboembolic event. ? General Surgery consulted Dr. Maher was placed, recommended against surgical procedure due to high morbidity and mortality ? IV Zosyn, renally dosed for intra-abdominal cause of sepsis ? Blood cultures ordered ? Given 1 L IV fluid bolus, holding off on further fluid boluses due to anasarca and CHF ? NG tube placement with suction #BLAKE on CKD stage III 4 BLAKE on CKD baseline creatinine seems to be around 2.0, GFR 24, no decrease in GFR 21, likely in the setting of sepsis. ? Renally dose antibiotic, Zosyn ? Will consider nephrology consult if no improvement in renal function #GI bleed Presented with coffee-ground emesis, history of cirrhosis at risk for variceal bleed, holding off on octreotide in the setting of pneumoperitoneum and bowel ischemia as a possible differential diagnosis. ? Gastroenterology consult was placed, appreciate recommendations ? IV Protonix loading dose given, Protonix drip started, transition to twice daily ? Monitor daily CBC, transfuse if hemoglobin less than 7 #Acute hypoxic respiratory failure #History of pulmonary hypertension Likely in the setting of pneumonia as well as history of pulmonary hypertension and CHF, poor candidate for surgery. ? Supplemental oxygen as needed ? IV antibiotic for pneumonia #History of A-fib #History of mitral regurgitation #History of CHF ? Cardiology consult Dr. Leos was placed, appreciate recommendations ? Holding off on anticoagulation/antiplatelets as patient has GI bleed risk of hemodynamic collapse. ? Holding off diuretics at this point as patient's blood pressure in the 80s. Disposition: Poor candidate for surgery, on IV antibiotics, will revisit goals of care discussion if no improvement in clinical situation. DVT prophylaxis: SCD GI prophylaxis: Protonix Diet: N.p.o., NG tube Lines: PIV CODE STATUS: Full Plan of care discussed with attending Dr. Lexi Thrasher [id number] Attending Provider Attestation/Addendum 84-year-old female multiple comorbidities including hypertension, hyperlipidemia, CKD stage III, atrial fibrillation not on anticoagulation, pulmonary hypertension, cirrhosis who presented to the ER on 10/18/2023 for abdominal pain and coffee-ground emesis. In the ER, patient underwent extensive workup including CT scan which noted pneumoperitoneum. As a result, general surgery was consulted and evaluated the patient however given overall comorbid condition and poor prognosis, patient's family opted for nonsurgical intervention. Currently, patient continues to have abdominal pain and continues to have NG tube to low wall suction with minimal output. In addition, patient blood pressure appears to be stable, no white count and no fevers. Had a goals of care discussion with patient's daughter and granddaughter at bedside and updated them about patient's current condition and poor prognosis. Discussed options including hospice and updated them that patient is currently stable however can decompensate at any time. They all understand and want to talk to the rest of the family prior to making any decisions. Will continue conservative management including IV antibiotic therapy, Protonix and continue NG tube to low wall suction. Overall prognosis appears to be guarded.I reviewed above note and agree with findings and plans. I have also personally examined the patient with medicine team and went over assessment and plan with medical team including biomedical engineering internship and resident physician.
--- NOTE | 2024-10-18 20:42 | PD.IMPROG ---
Documentation for date of: 10/18/24 Subjective Subjective Interval history: Not much drainage via the NGT Abdominal tenderness is much better Positive bowel sounds Met with the family Exam Vital Signs Temp Pulse Resp BP Pulse Ox O2 Del Method O2 Flow Rate 96.6 F L 86 14 91/63 95 Nasal Cannula 3 10/18/24 20:00 10/18/24 20:00 10/18/24 20:00 10/18/24 20:00 10/18/24 20:00 10/18/24 20:00 10/18/24 20:00 Objective Labs 10/18/24 06:04 10/18/24 06:04 Labs: Laboratory Results - last 24 hr 10/18/24 06:04 WBC 8.9 D RBC 2.73 L Hgb 9.0 L Hct 27.7 L MCV 102 H MCH 33.0 MCHC 32.5 RDW Std Deviation 57.5 H Plt Count 153 D Neut % (Auto) 82 H Lymph % (Auto) 10 [place] % (Auto) 7 Eos % (Auto) 0 Baso % (Auto) 0 Neut # (Auto) 7.3 Lymph # (Auto) 0.9 L [place] # (Auto) 0.6 Eos # (Auto) 0.0 Baso # (Auto) 0.0 Immature Gran # (Auto) 0.06 H Absolute Nucleated RBC 0.00 Immature Gran % 1 H Nucleated RBC % 0 PT 14.1 H INR 1.3 Sodium 141 Potassium 4.0 Chloride 106 Carbon Dioxide 24.8 Anion Gap 10 BUN 38 H Creatinine 2.4 H Estim Creat Clear Calc 19.1 L eGFR 20 L BUN/Creatinine Ratio 16 Glucose 70 L Calculated Osmolality 288 Calcium 8.6 Corrected Calcium 9.2 Phosphorus 4.9 Magnesium 2.3 Total Bilirubin 5.4 H D AST 32 ALT 14 Alkaline Phosphatase 185 H D Total Protein 6.6 Albumin 3.2 L Globulin 3.4 Albumin/Globulin Ratio 0.9 L Triglycerides 78 Cholesterol 96 L LDL Cholesterol, Calc 43 HDL Cholesterol 37 L Cholesterol/HDL Ratio 2.6 L Impressions Impression: Pneumoperitoneum Continue conservative management Not much drainage NGT if that continues tomorrow pulled the NGT out Assessment & Plan A&P Narrative # Pneumoperitoneum most likely perforated viscus CAT scan shows dilated loops of small bowel Patient high risk for surgical intervention Plan Agree with the conservative management With IV fluids antibiotics and NGT suction And broad-spectrum antibiotics # Cirrhosis liver with ascites and anasarca Complete workup ordered Will follow the patient Overall prognosis very poor Other medical problems include CKD stage III Congestive heart failure Thank you very much for the opportunity to participate in the care of this patient Time Spent With Patient Time: Total time spent is greater than 50% in coordination of care (as documented) at patient's floor/unit and/or counseling patient:
[2024-10-19] VITALS (9 sets, daily range): BP systolic 102–123; BP diastolic 63–72; PULSE 70–92; RESP 12–20; TEMP 35.9–36.3; O2SAT 94–98; BMI 30.7
[2024-10-19] MEDS: DEXTROSE 5%-WATER 1,000 ML 75 ML IV ×2 (01:01→16:45)
[2024-10-19 06:40] LABS: Basophils # (Auto) 0.0 Thou/mm3 (0.0-0.2); Basophils % (Auto) 0 % (0-2.5); Eosinophils # (Auto) 0.1 Thou/mm3 (0.0-0.5); Eosinophils % (Auto) 1 % (0-10); Hematocrit 25.8 % (36.0-46.0); Hemoglobin 8.5 g/dL (12.0-16.0); Immature Granulocytes Auto 0.07 Thou/mm3 (0.00-0.00); Lymphocytes # (Auto) 0.5 Thou/mm3 (1.0-4.8); Lymphocytes % (Auto) 7 % (10-50); Mean Corpuscular HGB Conc 32.9 g/dl (31.0-37.0); Mean Corpuscular Hemoglobin 33.2 pg (25.0-35.0); Mean Corpuscular Volume 101 fL (80-100); Monocytes # (Auto) 0.6 Thou/mm3 (0.0-0.8); Monocytes % (Auto) 7 % (0-12); Neutrophils # (Auto) 6.2 Thou/mm3 (1.8-7.7); Neutrophils % (Auto) 83 % (37-80); Nucleated Red Blood Cell # 0.00 Thou/mm3 (0.00-0.00); Nucleated Red Blood Cell % 0 /100 WBC (0); Platelet Count 137 Thou/mm3 (140-440); RDW Standard Deviation 56.5 fL (36.4-46.3); Red Blood Count 2.56 Miln/mm3 (4.00-5.20); White Blood Count 7.5 Thou/mm3 (3.6-11.0)
[2024-10-19 07:04] LABS: Alanine Aminotransferase 13 U/L (10-49); Albumin, Serum 3.6 gm/dL (3.4-4.8); Albumin/Globulin Ratio 1.1 (1.2-2.2); Alkaline Phosphatase 143 U/L (46-116); Anion Gap 11 (7-16); Aspartate Amino Transferase 24 U/L (0-34); BUN/Creatinine Ratio 16 Ratio (12-20); Bilirubin,Total 5.4 mg/dL (0.3-1.2); Blood Urea Nitrogen 44 mg/dL (9-23); Calcium 9.0 mg/dL (8.3-10.6); Calcium (Corrected) 9.3 mg/dL (8.5-10.1); Carbon Dioxide 24.6 mMol/L (20.0-31.0); Chloride 103 mMol/L (98-107); Creatinine (Component) 2.7 mg/dL (0.6-1.3); Estimated Creatinine Clearance 16.9 mL/min (>60); Globulin 3.2 gm/dL (2.3-3.5); Glucose 135 mg/dL (74-106); Osmolality,Calculated 290 (275-295); Potassium 3.7 mMol/L (3.4-5.1); Sodium 139 mMol/L (136-145); Total Protein 6.8 gm/dL (5.7-8.2); eGFR 17 See Note
[2024-10-19] MEDS: ALBUMIN HUMAN 25% IVPB 25 GM/100 ML BTL IV ×2 (09:34→20:56)
[2024-10-19] MEDS: PIPER/TAZO 3.375 GM PREMIX 3.375 GM/50 ML BAG IV ×2 (09:34→20:57)
--- NOTE | 2024-10-19 09:55 | PD.RESPRO ---
Documentation for date of: 10/19/24 Subjective Subjective Interval history: No acute events overnight. Patient seen and examined at bedside this AM. Patient and family are aware of poor prognosis. Had goals of care discussion with patient and family today, patient decided to change status to DNR/DNI and requested to be discharged home with hospice care. Family was agreeable to patient's decision. Vitals and labs were reviewed. WBC stable as patient is on antibiotics. Hgb and platelets slowly decreasing, likely secondary to sepsis and organ failure. Blood culture was negative for growth at this time. Renal function continues to decline. Review of systems otherwise negative except what is mentioned above. Exam Vital Signs Temp Pulse Resp BP Pulse Ox O2 Del Method O2 Flow Rate 97.1 F 89 20 107/66 95 Nasal Cannula 2 10/19/24 08:00 10/19/24 08:00 10/19/24 08:00 10/19/24 08:00 10/19/24 08:00 10/19/24 08:00 10/19/24 08:00 Narrative Exam Physical Exam: General: Awake. in moderate distress due to pain, HEENT: Normocephalic, atraumatic, mucous membranes moist. Heart: Regular rate and rhythm, pansystolic murmur heard in mitral and tricuspid area. Pacemaker noted Lungs: Clear to auscultation with no wheezing or crackles. Abdomen: moderately distended, tender, positive bowel sounds. Increased rigidity to palpation. No guarding or rebound tenderness. Neurologic: Alert and oriented x3, no gross neurological deficit, and patient able to move all 4 extremities. Extremities: Bilateral lower extremity edema extending up to the upper abdomen. 4+ pitting edema lower extremitites. Skin: noted telangiectesia/spider angiomas upper chest. Objective Labs 10/19/24 05:38 10/19/24 05:38 Labs: Laboratory Results - last 24 hr 10/19/24 05:38 WBC 7.5 RBC 2.56 L Hgb 8.5 L Hct 25.8 L MCV 101 H MCH 33.2 MCHC 32.9 RDW Std Deviation 56.5 H Plt Count 137 L Neut % (Auto) 83 H Lymph % (Auto) 7 L Terry % (Auto) 7 Eos % (Auto) 1 Baso % (Auto) 0 Neut # (Auto) 6.2 Lymph # (Auto) 0.5 L Terry # (Auto) 0.6 Eos # (Auto) 0.1 Baso # (Auto) 0.0 Immature Gran # (Auto) 0.07 H Absolute Nucleated RBC 0.00 Immature Gran % 1 H Nucleated RBC % 0 Sodium 139 Potassium 3.7 Chloride 103 Carbon Dioxide 24.6 Anion Gap 11 BUN 44 H Creatinine 2.7 H Estim Creat Clear Calc 16.9 L eGFR 17 L BUN/Creatinine Ratio 16 Glucose 135 H D Calculated Osmolality 290 Calcium 9.0 Corrected Calcium 9.3 Total Bilirubin 5.4 H AST 24 ALT 13 Alkaline Phosphatase 143 H D Total Protein 6.8 Albumin 3.6 Globulin 3.2 Albumin/Globulin Ratio 1.1 L Quality Measures Quality Measures none Advance care planning discussed with:: patient (patient and family) Assessment & Plan Assessment Current Active Medications: Generic Name Dose Route Start Last Admin Trade Name Freq PRN Reason Stop Dose Admin Acetaminophen 650 mg 10/17/24 18:38 Acetaminophen 325 Mg Tablet PO 11/16/24 16:32 Q6H PRN PAIN OR FEVER > 101 Dextrose 25 ml 10/17/24 22:30 Dextrose 50%-Water Inj 50 Ml Syringe IV 11/16/24 22:29 Q15MIN PRN BG 50-70 responsive npo pt Dextrose 50 ml 10/17/24 22:30 Dextrose 50%-Water Inj 50 Ml Syringe IV 11/16/24 22:29 Q15MIN PRN BG <50 OR BG <70 & pt unresponsive Glucagon 1 mg 10/17/24 22:30 Glucagon Inj 1 Mg Vial IM Q15MIN PRN BG <70, and no IV access Hydromorphone HCl 0.25 mg 10/17/24 18:34 10/18/24 16:41 Hydromorphone Inj 2 Mg/Ml Vial IVP 10/22/24 16:47 0.25 mg Q4HR PRN Administration PAIN SCALE 4-10(Mod-Sev Albumin Human 25 gm in 100 mls @ 100 mls/hr 10/17/24 21:00 10/19/24 09:34 Albuminar-25 Ivpb IV 10/20/24 20:59 100 mls/hr BID SANJEEV Administration Dextrose 1,000 mls @ 75 mls/hr 10/18/24 11:45 10/19/24 01:01 D5w IV 11/17/24 11:44 75 mls/hr .[id number] SANJEEV Administration Piperacillin/Tazobactam/Dextrose 3.375 gm in 50 mls @ 12.5 mls/hr 10/18/24 21:00 10/19/24 09:34 Zosyn IV 10/24/24 21:59 12.5 mls/hr Q12HR SANJEEV Administration Ondansetron HCl 4 mg 10/17/24 16:33 Ondansetron Inj 2 Mg/Ml Inj 2 Ml IV 11/16/24 16:32 Q6H PRN NAUSEA OR VOMITING Protocol Pantoprazole Sodium 40 mg 10/17/24 21:00 10/19/24 09:34 Pantoprazole Inj 40 Mg Vial IVP 11/16/24 20:59 40 mg BID SANJEEV Administration Pharmacy Consult 1 each 10/17/24 16:47 Pharmacy Renal Dose Adjustment 1 Ea XX 11/16/24 16:46 PRN PRN CONSULT Sennosides 2 tab 10/17/24 16:33 Senna Tablet PO 11/16/24 16:32 BID PRN CONSTIPATION Protocol Plan Patient is a 84-year-old female with past medical history of hypertension, hyperlipidemia, CKD stage III, atrial fibrillation not on anticoagulation, pulmonary hypertension, and cirrhosis who presented to the ED on 10/18/2023 for abdominal pain and coffee-ground emesis, admitted for sepsis secondary to pneumoperitonium with concern for perforation and pneumonia. After goals of care discussion with patient and family today, patient decided to change status to DNR/DNI and requested to be discharged home with hospice care. #Goals of Care Given patient's poor prognosis, goals of care discussion was held today at noon with patient, family, and outreach and education social worker present. Presented options to patient and family, patient requested to be discharged home with hospice care and family was agreeable to her choice. Patient also decided to change patient's code status to DNR/DNI to avoid prolonged suffering, POLST completed. Family was agreeable to patient's decision. #Sepsis secondary to- #Pneumoperitoneum, concern for ischemic bowel versus perforation #Pneumonia The patient has multiple organ dysfunction including acute kidney injury as well as acute hypoxic respiratory failure in the setting of pneumonia and the most concerning pneumoperitoneum differential diagnosis include ischemic bowel versus perforation. Patient has history of atrial fibrillation but was not on anticoagulation due to GI bleed, concern for thromboembolic event. ? General Surgery consulted: Dr. Maher recommended against surgical procedure due to high morbidity and mortality ? Blood cultures negative for growth for 24 hours ? IV Zosyn, renally dosed for intra-abdominal cause of sepsis ? S/p 1 L IV fluid bolus, continue to hold further fluid boluses due to anasarca and CHF ? NG tube placement with suction #BLAKE on CKD stage III 4 Baseline creatinine around 2.0, GFR 24. Creatinine and BUN increasing, likely in the setting of sepsis. GFR decreased from 20 to 17 today. ? Renally dose antibiotic Zosyn as above ? Will consider nephrology consult if no improvement in renal function #GI bleed Presented with coffee-ground emesis, history of cirrhosis at risk for variceal bleed, holding off on octreotide in the setting of pneumoperitoneum and bowel ischemia as a possible differential diagnosis. ? Gastroenterology consult was placed, appreciate recommendations ? IV Protonix loading dose given, Protonix drip started, transition to twice daily ? Monitor daily CBC, transfuse if hemoglobin less than 7 #Acute hypoxic respiratory failure #History of pulmonary hypertension Likely in the setting of pneumonia as well as history of pulmonary hypertension and CHF, poor candidate for surgery. ? Supplemental oxygen as needed ? IV antibiotic for pneumonia #Cirrhosis liver #Anasarca Liver nodular in contour, cirrhosis noted on CTAP. - Gastroenterology consulted, appreciate recommendations - Complete workup ordered by GI #History of A-fib #History of mitral regurgitation #History of CHF ? Cardiology consult Dr. Leos was placed, appreciate recommendations ? Holding off on anticoagulation/antiplatelets as patient has GI bleed risk of hemodynamic collapse. ? Holding off diuretics at this point as patient's blood pressure in the 80s. Disposition: Poor candidate for surgery, on IV antibiotics, will revisit goals of care discussion if no improvement in clinical situation. DVT prophylaxis: SCD GI prophylaxis: Protonix Diet: N.p.o., NG tube Lines: PIV CODE STATUS: Full Plan of care discussed with attending Dr. Lexi Epps PGY-1
--- NOTE | 2024-10-19 14:14 | PD.IMPROG ---
Documentation for date of: 10/19/24 Subjective Subjective Interval history: Patient evaluated Passing small bowel movements Passing flatus Not much through the NGT Will discontinue the NGT Ice chips Continue IV antibiotics Exam Vital Signs Temp Pulse Resp BP Pulse Ox O2 Del Method O2 Flow Rate 97.2 F 70 20 115/69 95 Nasal Cannula 2 10/19/24 12:00 10/19/24 12:00 10/19/24 12:00 10/19/24 12:00 10/19/24 12:00 10/19/24 12:00 10/19/24 12:00 Objective Labs 10/19/24 05:38 10/19/24 05:38 Labs: Laboratory Results - last 24 hr 10/19/24 05:38 WBC 7.5 RBC 2.56 L Hgb 8.5 L Hct 25.8 L MCV 101 H MCH 33.2 MCHC 32.9 RDW Std Deviation 56.5 H Plt Count 137 L Neut % (Auto) 83 H Lymph % (Auto) 7 L [place] % (Auto) 7 Eos % (Auto) 1 Baso % (Auto) 0 Neut # (Auto) 6.2 Lymph # (Auto) 0.5 L [place] # (Auto) 0.6 Eos # (Auto) 0.1 Baso # (Auto) 0.0 Immature Gran # (Auto) 0.07 H Absolute Nucleated RBC 0.00 Immature Gran % 1 H Nucleated RBC % 0 Sodium 139 Potassium 3.7 Chloride 103 Carbon Dioxide 24.6 Anion Gap 11 BUN 44 H Creatinine 2.7 H Estim Creat Clear Calc 16.9 L eGFR 17 L BUN/Creatinine Ratio 16 Glucose 135 H D Calculated Osmolality 290 Calcium 9.0 Corrected Calcium 9.3 Total Bilirubin 5.4 H AST 24 ALT 13 Alkaline Phosphatase 143 H D Total Protein 6.8 Albumin 3.6 Globulin 3.2 Albumin/Globulin Ratio 1.1 L Impressions Impression: Pneumoperitoneum Improving DC NGT since much is not coming out Ice chips Assessment & Plan A&P Narrative # Pneumoperitoneum most likely perforated viscus CAT scan shows dilated loops of small bowel Patient high risk for surgical intervention Plan Agree with the conservative management With IV fluids antibiotics and NGT suction And broad-spectrum antibiotics # Cirrhosis liver with ascites and anasarca Complete workup ordered Will follow the patient Overall prognosis very poor Other medical problems include CKD stage III Congestive heart failure Thank you very much for the opportunity to participate in the care of this patient Time Spent With Patient Time: Total time spent is greater than 50% in coordination of care (as documented) at patient's floor/unit and/or counseling patient:
--- NOTE | 2024-10-19 15:58 | PC.SS ---
SS spoke with [facility], went over pt and family preference; referral sent via [facility]; Team is able to have all necessary equipment by October 20 SS was present for GOC meeting with pt and family; decision to move forward with hospice at home with [facility]; SS was available to answer any questions and provided information on services SS spoke with Beau dtr pt, confirmed GOC meeting for 12pm SS spoke with Chrissy Brady, ensure that pt able to return if hospice; Caitlyn confirmed
[2024-10-19] MEDS: HYDROmorphone INJ 2 MG/ML VIAL 0.25 MG IVP (16:45)
[2024-10-20] VITALS: BP 99/47; PULSE 80; PULSE 82; RESP 17; TEMP 36.3; O2SAT 94
[2024-10-20 04:00] VITALS: BP 93/53; PULSE 67; PULSE 79; RESP 14; TEMP 36.1; O2SAT 95
[2024-10-20 05:46] LABS: Basophils # (Auto) 0.0 Thou/mm3 (0.0-0.2); Basophils % (Auto) 0 % (0-2.5); Eosinophils # (Auto) 0.1 Thou/mm3 (0.0-0.5); Eosinophils % (Auto) 2 % (0-10); Hematocrit 22.8 % (36.0-46.0); Immature Granulocytes Auto 0.05 Thou/mm3 (0.00-0.00); Lymphocytes # (Auto) 0.7 Thou/mm3 (1.0-4.8); Lymphocytes % (Auto) 12 % (10-50); Mean Corpuscular HGB Conc 33.3 g/dl (31.0-37.0); Mean Corpuscular Hemoglobin 32.9 pg (25.0-35.0); Mean Corpuscular Volume 99 fL (80-100); Monocytes # (Auto) 0.5 Thou/mm3 (0.0-0.8); Monocytes % (Auto) 8 % (0-12); Neutrophils # (Auto) 4.5 Thou/mm3 (1.8-7.7); Neutrophils % (Auto) 76 % (37-80); Nucleated Red Blood Cell # 0.00 Thou/mm3 (0.00-0.00); Nucleated Red Blood Cell % 0 /100 WBC (0); Platelet Count 119 Thou/mm3 (140-440); RDW Standard Deviation 53.8 fL (36.4-46.3); Red Blood Count 2.31 Miln/mm3 (4.00-5.20); White Blood Count 5.9 Thou/mm3 (3.6-11.0)
[2024-10-20 05:48] LABS: Hemoglobin 7.6 g/dL (12.0-16.0)
[2024-10-20 06:00] VITALS: BMI 30.7
[2024-10-20 06:27] LABS: Alanine Aminotransferase 11 U/L (10-49); Albumin, Serum 3.4 gm/dL (3.4-4.8); Albumin/Globulin Ratio 1.2 (1.2-2.2); Alkaline Phosphatase 121 U/L (46-116); Anion Gap 15 (7-16); Aspartate Amino Transferase 17 U/L (0-34); BUN/Creatinine Ratio 15 Ratio (12-20); Bilirubin,Total 4.3 mg/dL (0.3-1.2); Blood Urea Nitrogen 45 mg/dL (9-23); Calcium 8.7 mg/dL (8.3-10.6); Calcium (Corrected) 9.2 mg/dL (8.5-10.1); Carbon Dioxide 22.9 mMol/L (20.0-31.0); Chloride 100 mMol/L (98-107); Creatinine (Component) 3.0 mg/dL (0.6-1.3); Estimated Creatinine Clearance 15.2 mL/min (>60); Globulin 2.9 gm/dL (2.3-3.5); Glucose 120 mg/dL (74-106); Osmolality,Calculated 288 (275-295); Potassium 3.8 mMol/L (3.4-5.1); Sodium 138 mMol/L (136-145); Total Protein 6.3 gm/dL (5.7-8.2); eGFR 15 See Note
[2024-10-20 08:00] VITALS: BP 106/60; PULSE 74; PULSE 79; RESP 15; TEMP 36; O2SAT 95
[2024-10-20] MEDS: ALBUMIN HUMAN 25% IVPB 25 GM/100 ML BTL IV (08:16)
[2024-10-20] MEDS: PIPER/TAZO 3.375 GM PREMIX 3.375 GM/50 ML BAG IV (08:17)
[2024-10-20] MEDS: DEXTROSE 5%-WATER 500 ML 75 ML IV (08:51)
[2024-10-20 09:51] VITALS: PULSE 79; RESP 15; RESP 88; O2SAT 95
--- NOTE | 2024-10-20 10:53 | ESDS_ITS ---
Planned Discharge Date 10/20/24 DS: Providers Provider Date of admission: 10/17/24 16:45 Primary care physician: Mauro Castillo MD Admitting Provider: Nico Flanagan DO Attending Provider on Admission: Fabiano Elliott MD Consults: 10/17/24 18:33 Consult to Cardiology Stat Comment: Consulting Provider: Aracelis Leos 10/17/24 18:34 Consult to Gastroenterology Stat Comment: Consulting Provider: Florence Le 10/19/24 12:31 Referral Hospice Stat Comment: Attending Provider on DC: Betzy Thrasher MD Discharging Provider: Betzy Thrasher MD DS: Diagnosis Problem List Completed Was Problem List Reviewed/Reconciled?: Yes Hospital Course Hospital Course Hospital course: Patient is a 84-year-old female with past medical history of hypertension, hyperlipidemia, CKD stage III, atrial fibrillation not on anticoagulation, pulmonary hypertension, and cirrhosis who presented to the ED on 10/18/2023 for abdominal pain and coffee-ground emesis, admitted for sepsis secondary to pneumoperitonium with concern for perforation and pneumonia. General surgery was consulted, Dr. Chilel evaluated the patient, and recommended against surgical intervention as patient has more than 70% risk of and serious complications, given her comorbidities. As well as poor prognosis, with or without surgical intervention. Patient was initially started on IV antibiotics, IV Protonix, cultures were drawn, and NG tube was placed for decompression. After goals of care discussion with patient and family today, the patient's family and daughter, Sarahi, decided to change status to DNR/DNI and requested to be discharged home with hospice care. Patient was evaluated at the bedside, family is present in the room, questions and concerns answered. Patient does seem comfortable and relaxed. NG tube was discontinued yesterday, currently has a Collins's catheter, which will be continued upon discharge to ensure patient's comfort as patient did come in with urinary retention. #Sepsis secondary to- #Pneumoperitoneum, concern for ischemic bowel versus perforation #Pneumonia #BLAKE on CKD stage III 4 #GI bleed #Acute hypoxic respiratory failure #History of pulmonary hypertension #History of A-fib #History of mitral regurgitation #History of CHF Plan of care discussed with my attending, Dr. Elliott Time Spent with Patient Time attestation: Total time spent providing and/or coordinating discharge services: Time spent: Greater than 30 minutes Exam Vital Signs Temp Pulse Resp BP Pulse Ox O2 Del Method O2 Flow Rate 96.8 F 79 15 106/60 95 Nasal Cannula 2 10/20/24 08:00 10/20/24 09:51 10/20/24 09:51 10/20/24 08:00 10/20/24 09:51 10/20/24 08:00 10/20/24 09:51 Narrative Exam Physical Exam: General: Awake. Comfortable, pale well-managed, Collins's catheter in place, NG tube discontinued. HEENT: Normocephalic, atraumatic, mucous membranes moist. Heart: Regular rate and rhythm, pansystolic murmur heard in mitral and tricuspid area. Pacemaker noted Lungs: Clear to auscultation with no wheezing or crackles. Abdomen: moderately distended, tender, positive bowel sounds. Increased rigidity to palpation. No guarding or rebound tenderness. Neurologic: Alert and oriented x3, no gross neurological deficit, and patient able to move all 4 extremities. Extremities: Bilateral lower extremity edema extending up to the upper abdomen. 4+ pitting edema lower extremitites. Skin: noted telangiectesia/spider angiomas upper chest. Discharge Plan Plan Patient Disposition: Home w/HOSPICE Patient condition on transfer: Benefits outweigh risks Care Plan Goals: Continue Augmentin for 3 more days , Rest of medications and pain management per Hospice. The patient is discharged with indewelling collins's catheter, due to complain of urinary retention, to help with patient comfort, can discontinue at a later date, if passes voiding trial. Follow up with Primary care physician with labs within 3-5 days of discharge. If symptoms persist or worsen, return to the Emergency Department. Prescriptions/Referrals Prescriptions/Med Rec: New amoxicillin-pot clavulanate 500-125 mg tablet 1 tab PO BID Qty: 6 0RF Continued lovastatin 20 mg Tablet 20 mg PO HS cholecalciferol (vitamin D3) 125 mcg (5,000 unit) tablet 5,000 unit PO QDAY bisacodyl [Dulcolax (bisacodyl)] 10 mg suppository 10 mg AL QDAY PRN (Reason: constipation) Rx Instructions: If MOM ineffective Fleet Enema 19-7 gram/118 mL enema 118 ml AL QDAY PRN (Reason: constipation) Rx Instructions: If Dulcolax ineffective magnesium hydroxide 400 mg/5 mL suspension 30 ml PO Q72H PRN (Reason: constipation) Rx Instructions: if no BM for 3 days ondansetron 4 mg tablet,disintegrating 4 mg PO Q6H PRN (Reason: nausea and vomiting) B complex-vitamin C-folic acid 0.8 mg tablet 1 tab PO QDAY artificial tears solution Drops 1 drp ophthalmic (eye) [id number] PRN (Reason: dry eye(s)) Rx Instructions: Both eyes. bumetanide 2 mg tablet 2 mg PO BID Rx Instructions: hold for SBP<100 of DBP<60 spironolactone 25 mg Tablet 50 mg PO DAILY Rx Instructions: Give for SBP <100, DBP < 100, HE < 60 fluticasone propionate 50 mcg/actuation spray,suspension 1 spray INTRANASAL QDAY Patient Comments: USE 1 SPRAY EN CADA PORO DE [place] TODOS LOS D carvedilol 6.25 mg tablet 6.25 mg PO BID Patient Comments: TOME 1 TABLETA POR V A ORAL DOS VECES AL D A CON ALIMENTO cyanocobalamin (vitamin B-12) [Vitamin B-12] 500 mcg tablet 500 mcg PO QDAY pantoprazole 40 mg Tablet,Delayed Release (Dr/Ec) 40 mg PO PRN PRN (Reason: heart burn or gastritis) Qty: 30 0RF Jardiance 10 mg tablet 10 mg PO QAM Qty: 30 0RF Discontinued Jardiance 10 mg tablet 10 mg PO QAM potassium chloride [Klor-Con] 20 mEq packet 10 meq PO BID ferrous sulfate 325 mg (65 mg iron) tablet 325 mg PO BID Patient Comments: TOME 1 TABLETA POR V A ORAL DOS VECES AL D A Referrals: Mauro Castillo MD [Primary Care Provider] - Patient/Caregiver Discharge Instructions Education Materials: Hospice The Importance of ..., Hospice: As Nears Print Language: Hungarian Stand Alone Forms: Janet Award Info., Patient Portal Info Letter Discharge Order Discharge Orders: Discharge (Routine); Ordered 10/20/24 Ordered By: Betzy Thrasher Quality Discharge Quality Measures VTE prophylaxis
[2024-10-20 12:00] VITALS: BP 106/67; PULSE 76; PULSE 80; RESP 18; TEMP 36.8; O2SAT 93
[2024-10-20] MEDS: HYDROmorphone INJ 2 MG/ML VIAL 0.25 MG IVP (13:26)
--- NOTE | 2024-10-20 16:07 | PC.SS ---
SS spoke with medical team for transportation SS spoke with Verónica, hospice nurse, confirmed time for transportation SS sent referral to [facility] via [facility] to set up transportation, SS spke with Patricia, set up transportation for 3PM SS recevied call from Verónica, EARL asked to send over PCS to [facility] to set up transportation SS spoke with main office, equiptment is expected to be delivered by 1:30 SS spoke with Verónica, nurse, provided update on status SS spoke with Rony who confirmed [facility] is able to subsidize payment for ambulance SS spoke with main office, confirmed working on DME but needed to know what equiptment needed, SS and family, Beau, provided equiptment needs SS spoke with Rony, cardiac care nurse, who is working with team on DME and will have update soon SS spoke with [facility], who confirmed team working on DME; Rony will begin taking over case [phone] SS received call from Verónica, hospice nurse, , asking for update and plan; SS informed waiting for team to call confiming that DME has been received at home
== END 2024-10-20 15:10 | disposition hospice, home (50) | DRG 871 ==
LOC: SERX 16:40 → SERHOLD 19:56 → S2NX 21:56
PROVIDERS: Student in an Organized Health Care Education/Training Program; Admitting Provider Student in an Organized Health Care Education/Training Program; Emergency Provider Emergency Medicine; PCP Family Medicine; Visit Provider Internal Medicine
DX: A41.9 Sepsis, unspecified organism (principal); J18.9 Pneumonia, unspecified organism; J96.01 Acute respiratory failure with hypoxia; I13.0 Hypertensive heart and chronic kidney disease with heart failure and stage 1 through stage 4 chronic kidney disease, or unspecified chronic kidney disease; N17.9 Acute kidney failure, unspecified; K92.2 Gastrointestinal hemorrhage, unspecified; R18.8 Other ascites; E78.5 Hyperlipidemia, unspecified; Z95.0 Presence of cardiac pacemaker; E11.22 Type 2 diabetes mellitus with diabetic chronic kidney disease; I50.9 Heart failure, unspecified; I48.91 Unspecified atrial fibrillation; I27.20 Pulmonary hypertension, unspecified; I34.0 Nonrheumatic mitral (valve) insufficiency; K74.60 Unspecified cirrhosis of liver; Z74.01 Bed confinement status; K66.8 Other specified disorders of peritoneum; K80.20 Calculus of gallbladder without cholecystitis without obstruction; N18.30 Chronic kidney disease, stage 3 unspecified; Z51.5 Encounter for palliative care; Z66 Do not resuscitate; Z79.84 Long term (current) use of oral hypoglycemic drugs; I95.9 Hypotension, unspecified; Z88.8 Allergy status to other drugs, medicaments and biological substances; Z88.6 Allergy status to analgesic agent; R33.9 Retention of urine, unspecified; D64.9 Anemia, unspecified; Z79.899 Other long term (current) drug therapy
CPT/HCPCS: 36415; 71045; 74176; 80053; 80061; 81001; 83605; 83690; 83735; 83880; 84100; 84145; 84484; 85025; 85610; 85730; 87040; 87081; 87811; 93005; 96365; 96366; 96375; 99285; J1171; J2270; J2405; J2470; J2543; J3490; J7030; J7060; J7070; P9047